=== PATIENT | female | born 1965 | race Hispanic/Latino ===

== ENCOUNTER 2016-11-15 19:33 | Emergency (ER) | payer SELFPAY ==
[2016-11-15 19:58] VITALS: BP 145/96
[2016-11-15 20:24] LABS: Hematocrit 43.8 % (30.3-42.9); Hemoglobin 14.9 gm/dl (10.1-14.3); Mean Corpuscular HGB Conc 34 % (30-34); Mean Corpuscular Hemoglobin 34 pg (28-32); Mean Corpuscular Volume 100 fl (79-97); Red Blood Count 4.39 M/mm3 (3.65-5.03); Red Cell Distribution Width 15.8 % (13.2-15.2); White Blood Count 4.9 K/mm3 (4.5-11.0)
[2016-11-15 20:37] LABS: Anion Gap 20 mmol/L; Blood Urea Nitrogen 10 mg/dL (7-17); Calcium 9.1 mg/dL (8.4-10.2); Carbon Dioxide 20 mmol/L (22-30); Chloride 101.5 mmol/L (98-107); Glucose 90 mg/dL (65-100); Potassium 3.4 mmol/L (3.6-5.0); Sodium 138 mmol/L (137-145)
[2016-11-15 20:45] LABS: Urine Drugs of Abuse Note Disclamer
[2016-11-15 21:02] LABS: Bacteria,Urine 4+ /HPF (Negative); Bilirubin,Urine NEG (Negative); Blood,Urine LG (Negative); Ketones,Urine TR mg/dL (Negative); Leukocyte Esterase,Urine NEG (Negative); Mucus,Urine 3+ /HPF; Nitrite,Urine NEG (Negative)
[2016-11-15 21:26] LABS: Basophils % (Manual) 0 % (0.0-1.8); Blastocytes % (Manual) 0 %; Diff Status Complete; Platelet Estimate Consistent w Auto; RBC Morphology Normal
[2016-11-15 21:52] LABS: Platelet Count 92 K/mm3 (140-440)
== END 2016-11-15 23:00 | disposition left against medical advice (07) ==
LOC: ED 19:33
DX: M25.511 Pain in right shoulder (principal); M25.512 Pain in left shoulder; M54.9 Dorsalgia, unspecified; Z53.21 Procedure and treatment not carried out due to patient leaving prior to being seen by health care provider
CPT/HCPCS: 36415; 80048; 80307; 81001; 81025; 85007; 85025; 93005; 93010; G0480; 80320

== ENCOUNTER 2016-11-16 07:42 | Emergency (ER) | payer SELFPAY ==
[2016-11-16 07:57] VITALS: BP 153/95
[2016-11-16 08:28] LABS: Hematocrit 45.3 % (30.3-42.9); Hemoglobin 15.2 gm/dl (10.1-14.3); Mean Corpuscular HGB Conc 34 % (30-34); Mean Corpuscular Hemoglobin 34 pg (28-32); Mean Corpuscular Volume 100 fl (79-97); Red Blood Count 4.52 M/mm3 (3.65-5.03); White Blood Count 5.8 K/mm3 (4.5-11.0)
[2016-11-16 08:35] LABS: Anion Gap 21 mmol/L; Blood Urea Nitrogen 15 mg/dL (7-17); Calcium 9.3 mg/dL (8.4-10.2); Carbon Dioxide 23 mmol/L (22-30); Chloride 101.7 mmol/L (98-107); Glucose 106 mg/dL (65-100); Potassium 3.8 mmol/L (3.6-5.0); Sodium 142 mmol/L (137-145)
[2016-11-16 08:50] LABS: Platelet Count 91 K/mm3 (140-440)
[2016-11-16 09:35] LABS: Urine Drugs of Abuse Note Disclamer
[2016-11-16 09:54] LABS: Bacteria,Urine 4+ /HPF (Negative); Bilirubin,Urine NEG (Negative); Blood,Urine LG (Negative); Ketones,Urine TR mg/dL (Negative); Leukocyte Esterase,Urine TR (Negative); Mucus,Urine 3+ /HPF; Nitrite,Urine NEG (Negative)
[2016-11-16 10:08] LABS: Blastocytes % (Manual) 0 %
[2016-11-16 10:09] LABS: Diff Status Complete; Large Platelets Few; Platelet Estimate Cons; RBC Morphology Normal
[2016-11-16] MEDS ORDERED: NACL 0.9% 1000 ML 1,000 ML ONE (15:20)
--- NOTE | 2016-11-19 09:31 | ED Elopement Review ---
ED Pt Elopement review - Results review Lab results: Laboratory Tests 11/16/16 11/16/16 11/16/16 08:07 08:07 08:07 WBC 5.8 RBC 4.52 Hgb 15.2 H Hct 45.3 H MCV 100 H MCH 34 H MCHC 34 RDW 16.0 H Plt Count 91 L [place] % (Auto) Investigative Analyst Add Manual Diff Complete Total Counted 100 Seg Neuts % (Manual) 73.0 H Band Neutrophils % 0 Lymphocytes % (Manual) 12.0 L Reactive Lymphs % (Man) 1.0 Monocytes % (Manual) 14.0 H Metamyelocytes % 0 Myelocytes % 0 Promyelocytes % 0 Blast Cells % 0 Nucleated RBC % Not Reportable Seg Neutrophils # Man 4.2 Band Neutrophils # 0.0 Lymphocytes # (Manual) 0.7 L Abs React Lymphs (Man) 0.1 Monocytes # (Manual) 0.8 Eosinophils # (Manual) 0.0 Basophils # (Manual) 0.0 Metamyelocytes # 0.0 Myelocytes # 0.0 Promyelocytes # 0.0 Blast Cells # 0.0 WBC Morphology Not Reportable Hypersegmented Neuts Not Reportable Hyposegmented Neuts Not Reportable Hypogranular Neuts Not Reportable Smudge Cells Not Reportable Toxic Granulation Not Reportable Toxic Vacuolation Not Reportable Dohle Bodies Not Reportable Pelger-Huet Anomaly Not Reportable Tony Rods Not Reportable Platelet Estimate Cons Clumped Platelets Not Reportable Plt Clumps, EDTA Not Reportable Large Platelets Few Giant Platelets Not Reportable Platelet Satelliting Not Reportable Plt Morphology Comment Not Reportable RBC Morphology Normal Dimorphic RBCs Not Reportable Polychromasia Not Reportable Hypochromasia Not Reportable Poikilocytosis Not Reportable Anisocytosis Not Reportable Microcytosis Not Reportable Macrocytosis Not Reportable Spherocytes Not Reportable Pappenheimer Bodies Not Reportable Sickle Cells Not Reportable Target Cells Not Reportable Tear Drop Cells Not Reportable Ovalocytes Not Reportable Helmet Cells Not Reportable [place] Bodies Not Reportable [place] Rings Not Reportable [place] Cells Not Reportable Bite Cells Not Reportable Crenated Cell Not Reportable Elliptocytes Not Reportable Acanthocytes (Spur) Not Reportable Rouleaux Not Reportable Hemoglobin C Crystals Not Reportable Schistocytes Not Reportable Malaria parasites Not Reportable Monster Bodies Not Reportable Hem Pathologist Commnt No Sodium 142 Potassium 3.8 Chloride 101.7 Carbon Dioxide 23 Anion Gap 21 BUN 15 Creatinine 0.5 L Estimated GFR > 60 BUN/Creatinine Ratio 30.00 Glucose 106 H Calcium 9.3 Urine Color Urine Turbidity Urine pH Ur Specific [place] Urine Protein Urine Glucose (UA) Urine Ketones Urine Blood Urine Nitrite Urine Bilirubin Urine Urobilinogen Ur Leukocyte Esterase Urine WBC (Auto) Urine RBC (Auto) U Epithel Cells (Auto) Urine Bacteria (Auto) Urine WBC Clumps Urine Mucus Urine Opiates Screen Urine Methadone Screen Ur Barbiturates Screen Ur Phencyclidine Scrn Ur Amphetamines Screen U Benzodiazepines Scrn Urine Cocaine Screen U Marijuana (THC) Screen Drugs of Abuse Note Plasma/Serum Alcohol < 0.01 11/16/16 11/16/16 09:30 09:30 WBC RBC Hgb Hct MCV MCH MCHC RDW Plt Count [place] % (Auto) Add Manual Diff Total Counted Seg Neuts % (Manual) Band Neutrophils % Lymphocytes % (Manual) Reactive Lymphs % (Man) Monocytes % (Manual) Metamyelocytes % Myelocytes % Promyelocytes % Blast Cells % Nucleated RBC % Seg Neutrophils # Man Band Neutrophils # Lymphocytes # (Manual) Abs React Lymphs (Man) Monocytes # (Manual) Eosinophils # (Manual) Basophils # (Manual) Metamyelocytes # Myelocytes # Promyelocytes # Blast Cells # WBC Morphology Hypersegmented Neuts Hyposegmented Neuts Hypogranular Neuts Smudge Cells Toxic Granulation Toxic Vacuolation Dohle Bodies Pelger-Huet Anomaly Tony Rods Platelet Estimate Clumped Platelets Plt Clumps, EDTA Large Platelets Giant Platelets Platelet Satelliting Plt Morphology Comment RBC Morphology Dimorphic RBCs Polychromasia Hypochromasia Poikilocytosis Anisocytosis Microcytosis Macrocytosis Spherocytes Pappenheimer Bodies Sickle Cells Target Cells Tear Drop Cells Ovalocytes Helmet Cells [place] Bodies [place] Rings Konrad Cells Bite Cells Crenated Cell Elliptocytes Acanthocytes (Spur) Rouleaux Hemoglobin C Crystals Schistocytes Malaria parasites Monster Bodies Hem Pathologist Commnt Sodium Potassium Chloride Carbon Dioxide Anion Gap BUN Creatinine Estimated GFR BUN/Creatinine Ratio Glucose Calcium Urine Color Maritza Urine Turbidity Cloudy Urine pH 5.0 Ur Specific [place] 1.028 Urine Protein 100 mg/dl Urine Glucose (UA) Neg Urine Ketones Tr Urine Blood Lg Urine Nitrite Neg Urine Bilirubin Neg Urine Urobilinogen 4.0 Ur Leukocyte Esterase Tr Urine WBC (Auto) 24.0 H Urine RBC (Auto) 8.0 U Epithel Cells (Auto) 4.0 Urine Bacteria (Auto) 4+ Urine WBC Clumps 1+ Urine Mucus 3+ Urine Opiates Screen Presumptive negative Urine Methadone Screen Presumptive negative Ur Barbiturates Screen Presumptive positive Ur Phencyclidine Scrn Presumptive negative Ur Amphetamines Screen Presumptive positive U Benzodiazepines Scrn Presumptive positive Urine Cocaine Screen Presumptive negative U Marijuana (THC) Screen Presumptive negative Drugs of Abuse Note Disclamer Plasma/Serum Alcohol - Call Back decision Pt Call Back Decision: Call pt to return to ED [facility] (ams AND liver dz needs ammonia and w/u uti?)
== END 2016-11-16 17:20 | disposition left against medical advice (07) ==
LOC: ED 07:42
DX: R44.0 Auditory hallucinations (principal); K76.89 Other specified diseases of liver; Z53.21 Procedure and treatment not carried out due to patient leaving prior to being seen by health care provider
CPT/HCPCS: 36415; 80048; 80307; 81001; 85007; 85025; G0480; J7030; 80320

== ENCOUNTER 2017-07-24 11:48 | Emergency (ER) | payer OTHER ==
--- NOTE | 2017-07-24 13:08 | XRay Report ---
ABDOMEN RADIOGRAPHS INDICATION: Abdominal pain. COMPARISON: None similar. FINDINGS: Frontal abdominal radiographs demonstrate mild air-filled stomach. Nonobstructive remainder bowel gas pattern. Mild colonic stool throughout. Numerous pelvic phleboliths. Prior bladder tacking surgery. No pneumatosis or pneumoperitoneum. Top normal heart size with clear visualized lung bases. Demineralized bones with few lower lumbar degenerative changes. CONCLUSION: No acute abdominal radiographic abnormality, as described. Thank you for the opportunity to participate in this patient's care.
[2017-07-24 13:10] LABS: Bacteria,Urine 1+ /HPF (Negative); Bilirubin,Urine SM (Negative); Blood,Urine SM (Negative); Ketones,Urine NEG (Negative); Leukocyte Esterase,Urine MOD (Negative); Mucus,Urine 3+ /HPF; Nitrite,Urine POS (Negative)
[2017-07-24] MEDS ORDERED: ROCEPHIN/NS 1 GM/50 ML 1 GM/50 ML BAG IV ONE (13:14)
[2017-07-24] MEDS ORDERED: cefTRIAXone 1 GM in NACL 0.9% 20 ML IV ONE (13:30)
[2017-07-24 13:44] LABS: Basophils % (Auto) 1.1 % (0.0-1.8); Eosinophils % (Auto) 1.4 % (0.0-4.3); Hematocrit 39.2 % (30.3-42.9); Mean Corpuscular HGB Conc 33 % (30-34); Mean Corpuscular Hemoglobin 33 pg (28-32); Mean Corpuscular Volume 100 fl (79-97); Red Blood Count 3.92 M/mm3 (3.65-5.03); Red Cell Distribution Width 17.2 % (13.2-15.2); White Blood Count 2.8 K/mm3 (4.5-11.0)
[2017-07-24 13:47] LABS: Platelet Count 75 K/mm3 (140-440)
[2017-07-24 13:57] LABS: Alanine Aminotransferase 44 units/L (7-56); Albumin 2.8 g/dL (3.9-5); Albumin/Globulin Ratio 0.7 %; Alkaline Phosphatase 137 units/L (35-129); Anion Gap 18 mmol/L; BUN/Creatinine Ratio 23; Blood Urea Nitrogen 9 mg/dL (7-17); Calcium 8.5 mg/dL (8.4-10.2); Carbon Dioxide 19 mmol/L (22-30); Chloride 106.3 mmol/L (98-107); Glucose 120 mg/dL (65-100); Potassium 4.2 mmol/L (3.6-5.0); Sodium 139 mmol/L (137-145); Total Protein 6.8 g/dL (6.3-8.2)
[2017-07-24 13:58] LABS: INR 1.7 (0.87-1.13)
[2017-07-24 13:59] LABS: Partial Thromboplastin Time 46.3 Sec. (24.2-36.6)
[2017-07-24] MEDS ORDERED: LASIX IV ONE (14:05)
--- NOTE | 2017-07-24 14:05 | Emergency Department Report ---
HPI - General Chief Complaint: Extremity Injury, Lower Time Seen by Provider: 07/24/17 12:18 - HPI HPI: This is a 52-year-old female presents to the emergency department via EMS from home with complaint of bilateral lower extremity swelling, dysuria, constipation and some swelling underneath the right eye. The lower extremity swelling has been going on for the past 3 weeks. The constipation really is more of the patient having hard stools and she said that she had a bowel movement 2 days ago. Patient says that it is difficult for her to urinate and she feels like maybe she is producing less urine. She denies any vaginal bleeding or discharge. She denies any fever, chest pain, shortness of breath, nausea, vomiting. The patient noticed the swelling under the right eye starting this morning. She denies any eye pain or discharge or decreased vision. She has not taken anything for her symptoms prior to Presentation. The patient has a history of cirrhosis secondary to alcohol abuse but the patient has not been drinking since October. No recent travel or sick contacts at home. ED Past Medical Hx - Past Medical History Previous Medical History?: Yes Hx Hypertension: Yes (PT DENIES) Hx Congestive Heart Failure: No Hx Diabetes: No Hx Psychiatric Treatment: Yes (DEPRESSION) Hx Asthma: No Hx COPD: No Additional medical history: GI bleeding, cirrosis, ulcer - Surgical History Past Surgical History?: Yes Additional Surgical History: Bladder tacted - Social History Smoking Status: Never Smoker Substance Use Type: None - Medications Home Medications: Home Medications Medication Instructions Recorded Confirmed Last Taken Type Doxycycline [Vibramycin CAP] 100 mg PO Q12HR #20 capsule 04/25/16 Unknown Rx Docusate Sodium [Colace] 100 mg PO BID PRN #20 capsule 07/24/17 Unknown Rx Furosemide [Lasix] 20 mg PO QDAY #5 tablet 07/24/17 Unknown Rx HYDROcodone/APAP 5-325 [[place] 1 each PO Q6HR PRN #12 tablet 07/24/17 Unknown Rx 5-325 mg TAB] Nitrofurantoin [place]/M-Cryst 100 mg PO Q12HR #14 capsule 07/24/17 Unknown Rx [Macrobid CAP] ED Review of Systems ROS: Stated complaint: LEG/FEET SWELLING, DIFFICULTY URINE Other details as noted in HPI Comment: All other systems reviewed and negative Constitutional: denies: chills, fever Eyes: denies: eye pain, eye discharge, vision change ENT: denies: ear pain, throat pain Respiratory: denies: cough, shortness of breath, wheezing Cardiovascular: edema. denies: chest pain, palpitations Gastrointestinal: constipation. denies: vomiting Genitourinary: dysuria. denies: discharge Musculoskeletal: denies: back pain, joint swelling, arthralgia Skin: denies: rash, lesions Neurological: denies: headache, weakness, paresthesias Physical Exam - Physical Exam Vital Signs: Vital Signs 07/24/17 12:21 Temperature 98.4 F Pulse Rate 87 Respiratory 16 Rate Blood Pressure 125/77 O2 Sat by Pulse 100 Oximetry Physical Exam: GENERAL: The patient is well-developed well-nourished. HENT: Normocephalic. Atraumatic. Patient has moist mucous membranes. EYES: Extraocular motions are intact. Pupils equal reactive to light bilaterally. NECK: Supple. Trachea is midline. CHEST/LUNGS: Clear to auscultation. There is no respiratory distress noted. HEART/CARDIOVASCULAR: Regular. There is no tachycardia. There is no murmur. ABDOMEN: Abdomen is soft, nontender. Patient has normal bowel sounds. There is no abdominal distention. SKIN: Skin is warm and dry. There is nonpitting swelling of the bilateral lower extremities but no skin color change, warmth, fluctuance. NEURO: The patient is awake, alert, and oriented. The patient is cooperative. The patient has no focal neurologic deficits. The patient has normal speech. MUSCULOSKELETAL: There is some mild tenderness along the bilateral lower extremities but no obvious deformity. There is no limitation range of motion. There is no evidence of acute injury. ED Course Vital Signs 07/24/17 12:21 Temperature 98.4 F Pulse Rate 87 Respiratory 16 Rate Blood Pressure 125/77 O2 Sat by Pulse 100 Oximetry ED Medical Decision Making - Lab Data Result diagrams: 07/24/17 13:17 07/24/17 13:22 - Radiology Data Radiology results: report reviewed, image reviewed interpreted by me: Abdominal x-ray shows nonspecific nonobstructive bowel gas. ULTRASOUND ABDOMEN INDICATION: Abdominal pain, ascites. History of cirrhosis. COMPARISON: May 2014. FINDINGS: Abdominal sonography technically limited due to patient's body habitus and bowel gas, though suggests diffuse hepatic echogenic coarsening. Hepatic surface nodularity may be hinted on some images. No definite biliary dilatation, to the extent assessed. Mild gallbladder sludge and/or few small gallstones may be present near its neck. No pericholecystic fluid or positive sonographic Clark's sign, though patient appeared sedated. Gallbladder wall thickness is 2 mm. Common bile duct is 3.7 mm. Homogenous spleen, 12.3 cm in length. No significant ascites. Pancreas not well-visualized. Unremarkable IVC. Nonaneurysmal abdominal aorta. No hydronephrosis with a 3.8 x 3.1 cm right upper renal cortical cyst again noted. Right kidney is 14.1 x 6.2 x 6.7 cm with cortical thickness of 2 cm. Left kidney measures 11.5 x 5.8 x 5.8 cm with cortical thickness of 1.6 cm. CONCLUSION: No definite acute abdominal sonographic abnormality in this patient with cirrhosis, mild gallbladder sludge/cholelithiasis and a right renal cyst, as described. Thank you for the opportunity to participate in this patient's care. Transcribed By: RS Dictated By: CARIDAD VICTOR MD Electronically Authenticated By: CARIDAD VICTOR MD Signed Date/Time: 07/24/17 0008 Bilateral lower extremity venous Doppler is negative for DVT. - Medical Decision Making The patient presents with bilateral lower extremity swelling going on for about 3 weeks. She also complains of some dysuria and some recent constipation. She has a urinary tract infection and was given a dose of Rocephin here. Abdominal x-ray does not show any signs of obstruction or significant stool volume. Due to her cirrhosis and the swelling, an ultrasound was done of the abdomen that did not show any ascites or any other acute process but does show her cirrhosis as well as some gallbladder sludge and/or cholelithiasis without cholecystitis. The patient says that this is chronic as well. Her labs show elevated total bilirubin but once again there is no signs of cholecystitis and the patient does not have any jaundice and she is not really complaining of any abdominal discomfort. There is no leukocytosis. No significant electrolyte abnormalities or glucose abnormalities. BNP is about 100 and low suspicion for CHF. The patient will have bilateral lower extremity venous Doppler to rule out DVT as the cause of her lower stomach swelling but it is low suspicion at this point. She will be set up for discharge home with Macrobid for UTI, a few days of Lasix for diuresis, pain medication for her legs and some Colace to help with her hard stool. She will return to ER with any worsening of her symptoms or any acute distress. The lower external Dopplers were negative for DVT and the patient was sent home with the plan stated above. - Differential Diagnosis CHF, ascites, DVT, venous stasis Critical Care Time: No Critical care attestation.: If time is entered above; I have spent that time in minutes in the direct care of this critically ill patient, excluding procedure time. ED Disposition Clinical Impression: Lower extremity edema UTI (urinary tract infection) Qualifiers: Urinary tract infection type: acute cystitis Hematuria presence: without hematuria Qualified Code(s): N30.00 - Acute cystitis without hematuria Cirrhosis Qualifiers: Hepatic cirrhosis type: alcoholic cirrhosis Ascites presence: without ascites Qualified Code(s): K70.30 - Alcoholic cirrhosis of liver without ascites Cholelithiasis Qualifiers: Cholelithiasis location: gallbladder Cholecystitis presence: without cholecystitis Biliary obstruction: without biliary obstruction Qualified Code(s) : K80.20 - Calculus of gallbladder without cholecystitis without obstruction Disposition: DC- TO HOME OR SELFCARE Is pt being admited?: No Condition: Stable Instructions: Cirrhosis (ED), Urinary Tract Infection in Women (ED), Leg Edema (ED) Additional Instructions: Please follow up with a primary care physician as soon as possible. Return to the emergency Department with any worsening of your symptoms or any acute distress. You have been prescribed a medication that is sedating and therefore should not be taken prior to driving, working, and responsible for children and in no way should be mixed with alcohol of any quantity. Prescriptions: Docusate Sodium [Colace] 100 mg PO BID PRN #20 capsule PRN Reason: Constipation Furosemide [Lasix] 20 mg PO QDAY #5 tablet HYDROcodone/APAP 5-325 [[place] 5-325 mg TAB] 1 each PO Q6HR PRN #12 tablet PRN Reason: Pain Nitrofurantoin [place]/M-Cryst [Macrobid CAP] 100 mg PO Q12HR #14 capsule Referrals: [facility] [Outside] - 3-5 Days [facility] [Outside] - 3-5 Days [facility] [Outside] - 3-5 Days [facility] [Outside] - 3-5 Days [facility] [Outside] - 3-5 Days
[2017-07-24] MEDS ORDERED: MORPHINE IV ONE (15:04)
--- NOTE | 2017-07-24 15:20 | Ultrasound Report ---
ULTRASOUND ABDOMEN INDICATION: Abdominal pain, ascites. History of cirrhosis. COMPARISON: May 2014. FINDINGS: Abdominal sonography technically limited due to patient's body habitus and bowel gas, though suggests diffuse hepatic echogenic coarsening. Hepatic surface nodularity may be hinted on some images. No definite biliary dilatation, to the extent assessed. Mild gallbladder sludge and/or few small gallstones may be present near its neck. No pericholecystic fluid or positive sonographic Clark's sign, though patient appeared sedated. Gallbladder wall thickness is 2 mm. Common bile duct is 3.7 mm. Homogenous spleen, 12.3 cm in length. No significant ascites. Pancreas not well-visualized. Unremarkable IVC. Nonaneurysmal abdominal aorta. No hydronephrosis with a 3.8 x 3.1 cm right upper renal cortical cyst again noted. Right kidney is 14.1 x 6.2 x 6.7 cm with cortical thickness of 2 cm. Left kidney measures 11.5 x 5.8 x 5.8 cm with cortical thickness of 1.6 cm. CONCLUSION: No definite acute abdominal sonographic abnormality in this patient with cirrhosis, mild gallbladder sludge/cholelithiasis and a right renal cyst, as described. Thank you for the opportunity to participate in this patient's care.
[2017-07-24 17:05] VITALS: BP 124/59
== END 2017-07-24 17:15 | disposition home or self-care (01) ==
LOC: ED 11:48
DX: N30.00 Acute cystitis without hematuria (principal); K70.30 Alcoholic cirrhosis of liver without ascites; K80.20 Calculus of gallbladder without cholecystitis without obstruction; I10 Essential (primary) hypertension; F32.9 Major depressive disorder, single episode, unspecified; K74.60 Unspecified cirrhosis of liver
CPT/HCPCS: 36415; 74020; 76700; 80053; 81001; 83880; 85025; 85610; 85730; 87086; 93970; 96374; 96375; 99285; J0696; J1940; J2270; 87076; 87186

== ENCOUNTER 2017-09-17 12:01 | Emergency (ER) | payer OTHER ==
[2017-09-17] MEDS ORDERED: LASIX IV ONE (12:58)
--- NOTE | 2017-09-17 13:02 | Emergency Department Report ---
ED General Adult HPI - General Chief complaint: Dyspnea/Respdistress Stated complaint: SWELLING ALL OVER Time Seen by Provider: 09/17/17 12:50 Source: EMS Mode of arrival: Stretcher Limitations: Physical Limitation - History of Present Illness Initial comments: Patient is 52 years old female history of alcoholic liver cirrhosis, presented to the ER was generalized swelling mainly lower extremities abdomen and periorbital area for the last 2 weeks. Patient stated that she is having trouble seeing because of the swelling in her eyes. She denied shortness of breath. Patient had history of paracentesis for ascites before. She denied any fever, confusion, nausea or vomiting. No chest pain. - Related Data Previous Rx's Medication Instructions Recorded Last Taken Type Doxycycline [Vibramycin CAP] 100 mg PO Q12HR #20 capsule 04/25/16 Unknown Rx Docusate Sodium [Colace] 100 mg PO BID PRN #20 capsule 07/24/17 Unknown Rx Furosemide [Lasix] 20 mg PO QDAY #5 tablet 07/24/17 Unknown Rx HYDROcodone/APAP 5-325 [[place] 1 each PO Q6HR PRN #12 tablet 07/24/17 Unknown Rx 5-325 mg TAB] Nitrofurantoin [place]/M-Cryst 100 mg PO Q12HR #14 capsule 07/24/17 Unknown Rx [Macrobid CAP] Allergies Allergy/AdvReac Type Severity Reaction Status Date / Time Sulfa (Sulfonamide AdvReac Rash Verified 05/20/14 14:37 Antibiotics) ED Review of Systems ROS: Stated complaint: SWELLING ALL OVER Other details as noted in HPI Comment: All other systems reviewed and negative Constitutional: denies: chills, fever Respiratory: shortness of breath. denies: cough, orthopnea, SOB with exertion, wheezing Cardiovascular: denies: chest pain, palpitations, dyspnea on exertion Gastrointestinal: abdominal pain. denies: nausea, vomiting, diarrhea, constipation, hematemesis, melena, hematochezia Genitourinary: denies: urgency, dysuria, frequency, hematuria Musculoskeletal: denies: back pain, joint swelling Neurological: denies: headache, weakness, numbness, paresthesias, confusion, abnormal gait, vertigo ED Past Medical Hx - Past Medical History Hx Hypertension: Yes (PT DENIES) Hx Congestive Heart Failure: No Hx Diabetes: No Hx Psychiatric Treatment: Yes (DEPRESSION) Hx Asthma: No Hx COPD: No Additional medical history: GI bleeding, cirrosis, ulcer - Surgical History Additional Surgical History: Bladder tacted - Social History Smoking Status: Never Smoker Substance Use Type: Alcohol - Medications Home Medications: Home Medications Medication Instructions Recorded Confirmed Last Taken Type Doxycycline [Vibramycin CAP] 100 mg PO Q12HR #20 capsule 04/25/16 Unknown Rx Docusate Sodium [Colace] 100 mg PO BID PRN #20 capsule 07/24/17 Unknown Rx Furosemide [Lasix] 20 mg PO QDAY #5 tablet 07/24/17 Unknown Rx HYDROcodone/APAP 5-325 [[place] 1 each PO Q6HR PRN #12 tablet 07/24/17 Unknown Rx 5-325 mg TAB] Nitrofurantoin [place]/M-Cryst 100 mg PO Q12HR #14 capsule 07/24/17 Unknown Rx [Macrobid CAP] ED Physical Exam - General Limitations: Physical Limitation General appearance: alert, in no apparent distress - Head Head exam: Present: atraumatic, normocephalic, normal inspection - Eye Eye exam: Present: PERRL, periorbital swelling. Absent: scleral icterus, conjunctival injection, nystagmus, periorbital tenderness - ENT ENT exam: Present: normal exam, normal orophraynx, mucous membranes moist - Neck Neck exam: Present: normal inspection, full ROM. Absent: tenderness, meningismus, lymphadenopathy, thyromegaly - Respiratory Respiratory exam: Present: decreased breath sounds. Absent: respiratory distress, wheezes, rales, rhonchi, stridor, accessory muscle use, prolonged expiratory - Cardiovascular Cardiovascular Exam: Present: regular rate, normal rhythm, normal heart sounds - GI/Abdominal GI/Abdominal exam: Present: soft, distended, normal bowel sounds. Absent: tenderness, guarding, rebound, rigid, organomegaly, mass, bruit, pulsatile mass , hernia - Extremities Exam Extremities exam: Present: normal inspection, full ROM, normal capillary refill - Back Exam Back exam: Present: normal inspection, full ROM. Absent: tenderness, CVA tenderness (R), CVA tenderness (L) - Neurological Exam Neurological exam: Present: alert, oriented X3, CN II-XII intact, normal gait - Skin Skin exam: Present: warm, intact, normal color. Absent: cyanosis, diaphoretic, erythema ED Course Vital Signs 09/17/17 09/17/17 09/17/17 12:17 12:26 12:30 Temperature 98.4 F Pulse Rate 78 75 77 Respiratory 14 11 L 14 Rate Blood Pressure 129/61 135/76 O2 Sat by Pulse 97 97 96 Oximetry 09/17/17 09/17/17 09/17/17 12:45 13:00 14:17 Temperature Pulse Rate 76 81 Respiratory 15 16 14 Rate Blood Pressure 130/69 126/73 O2 Sat by Pulse 98 100 100 Oximetry - Reevaluation(s) Reevaluation #1: 09/17/17 15:52 Patient stated that she is feeling better. I will start patient on spironolactone and I strongly advised the patient to follow up with her GI doctor in the next 2-3 days. ED Medical Decision Making - Lab Data Result diagrams: 09/17/17 14:50 09/17/17 14:06 - EKG Data -: EKG Interpreted by Me EKG shows normal: sinus rhythm Rate: normal - EKG Data Interpretation: no acute changes - Radiology Data Radiology results: report reviewed Referring Physician: CRISTINA CAMARGO Patient Name: KYREE SILVA Date of : 1965 Sex: Female Report Date: 2017-09-17 Report Status: [place] [address] Ultrasound Report Signed Patient: KYREE SILVA MR#: [id number] : 1965 Acct:[id number] Age/Sex: 52 / F ADM Date: 09/17/17 Loc: ED Attending Dr: Ordering Physician: CRISTINA CAMARGO Date of Service: 09/17/17 Procedure(s): US abdomen limited Accession Number(s): [id number] cc: CRISTINA CAMARGO ULTRASOUND ABDOMEN LIMITED History: Ascites, cirrhosis. Findings: Transabdominal grayscale ultrasound was performed in all 4 quadrants. Small ascites is identified which is most pronounced in the right abdomen. No obvious internal septation or debris. Impression: Small ascites. Transcribed By: TTR Dictated By: KATALINA ANDERSON JR, MD Electronically Authenticated By: KATALINA ANDERSON JR, MD Signed Date/Time: 09/17/17 1328 DD/ 1327 TD/TT: 09/17/178 Referring Physician: CRISTINA CAMARGO Patient Name: KYREE SILVA Date of : 1965 Sex: Female Report Date: 2017-09-17 Report Status: Finalized Findings [facility] [address] [place] [address] XRay Report Signed Patient: KYREE SILVA MR#: [id number] : 1965 Acct:[id number] Age/Sex: 52 / F ADM Date: 09/17/17 Loc: ED Attending Dr: Ordering Physician: CRISTINA CAMARGO Date of Service: 09/17/17 Procedure(s): XR chest routine 2V Accession Number(s): [id number] cc: CRISTINA CAMARGO Fluoro Time In Minutes: ROUTINE CHEST, TWO VIEWS: HISTORY: Shortness of breath. The trachea, heart, mediastinal contour, lung mullen and bony thorax are unremarkable. IMPRESSION: No acute cardiopulmonary process. Transcribed By: TTR Dictated By: KATALINA ANDERSON JR, MD Electronically Authenticated By: KATALINA ANDERSON JR, MD Signed Date/Time: 09/17/171338 DD/ 133 TD/TT: 09/17/171338 Critical care attestation.: If time is entered above; I have spent that time in minutes in the direct care of this critically ill patient, excluding procedure time. ED Disposition Clinical Impression: Generalized abdominal swelling, Chronic liver disease and cirrhosis, Ascites Disposition: DC-01 TO HOME OR SELFCARE Is pt being admited?: No Condition: Stable Instructions: Cirrhosis (ED), Ascites (ED)
--- NOTE | 2017-09-17 13:35 | Ultrasound Report ---
ULTRASOUND ABDOMEN LIMITED History: Ascites, cirrhosis. Findings: Transabdominal grayscale ultrasound was performed in all 4 quadrants. Small ascites is identified which is most pronounced in the right abdomen. No obvious internal septation or debris. Impression: Small ascites.
--- NOTE | 2017-09-17 13:46 | XRay Report ---
ROUTINE CHEST, TWO VIEWS: HISTORY: Shortness of breath. The trachea, heart, mediastinal contour, lung mullen and bony thorax are unremarkable. IMPRESSION: No acute cardiopulmonary process.
[2017-09-17 14:29] LABS: Bacteria,Urine 1+ /HPF (Negative); Mucus,Urine FEW /HPF
[2017-09-17 14:36] LABS: Bilirubin,Urine NEG (Negative); Blood,Urine SM (Negative); Color,Urine Yellow (Yellow); Nitrite,Urine POS (Negative); Protein,Urine <15 mg/dL mg/dL (Negative)
[2017-09-17 14:43] LABS: Alanine Aminotransferase 45 units/L (7-56); Albumin 2.9 g/dL (3.9-5); BUN/Creatinine Ratio 20; Blood Urea Nitrogen 10 mg/dL (7-17); Calcium 8.5 mg/dL (8.4-10.2); Hemolysis Index 23
[2017-09-17 15:19] LABS: Basophils % (Auto) 1.1 % (0.0-1.8); Eosinophils % (Auto) 0.9 % (0.0-4.3); Hematocrit 42.1 % (30.3-42.9); Hemoglobin 14.1 gm/dl (10.1-14.3); Lymphocytes # (Auto) 1.2 K/mm3 (1.2-5.4); Lymphocytes % (Auto) 31.8 % (13.4-35.0); Mean Corpuscular HGB Conc 34 % (30-34); Mean Corpuscular Hemoglobin 33 pg (28-32); Mean Corpuscular Volume 97 fl (79-97); Monocytes # (Auto) 0.3 K/mm3 (0.0-0.8); Monocytes % (Auto) 8.7 % (0.0-7.3); Platelet Count 79 K/mm3 (140-440); Red Blood Count 4.32 M/mm3 (3.65-5.03); Red Cell Distribution Width 17.1 % (13.2-15.2)
[2017-09-17 15:35] LABS: INR 1.61 (0.87-1.13)
[2017-09-17 15:36] LABS: Partial Thromboplastin Time 43.9 Sec. (24.2-36.6)
[2017-09-17] MEDS ORDERED: MORPHINE ONE (15:40)
[2017-09-17] MEDS ORDERED: MORPHINE IV ONE (15:43)
[2017-09-17 16:04] VITALS: BP 122/61
== END 2017-09-17 16:29 | disposition home or self-care (01) ==
LOC: ED 12:01
DX: K74.60 Unspecified cirrhosis of liver (principal); R18.8 Other ascites; I10 Essential (primary) hypertension; Z88.2 Allergy status to sulfonamides
CPT/HCPCS: 36415; 71046; 76705; 80053; 81001; 82140; 85025; 85610; 85730; 93005; 93010; 96374; 96375; 99285; J1940; J2270

== ENCOUNTER 2017-12-17 10:32 | Emergency (ER) | payer MEDICAID ==
[2017-12-17 11:20] VITALS: BP 169/90
[2017-12-17 12:08] LABS: Bacteria,Urine 2+ /HPF (Negative); Bilirubin,Urine SM (Negative); Blood,Urine SM (Negative); Color,Urine Amber (Yellow); Mucus,Urine 3+ /HPF
[2017-12-17 12:09] LABS: Ictotest,Urine Negative (Negative)
[2017-12-17 12:53] LABS: Hemoglobin 14.1 gm/dl (10.1-14.3); Mean Corpuscular HGB Conc 33 % (30-34); Mean Corpuscular Hemoglobin 32 pg (28-32); Mean Corpuscular Volume 97 fl (79-97); Red Blood Count 4.42 M/mm3 (3.65-5.03); Red Cell Distribution Width 17.9 % (13.2-15.2)
[2017-12-17 12:54] LABS: Platelet Count 75 K/mm3 (140-440)
[2017-12-17 13:08] LABS: Alanine Aminotransferase 48 units/L (7-56); Albumin 3.1 g/dL (3.9-5); BUN/Creatinine Ratio 28; Blood Urea Nitrogen 11 mg/dL (7-17); Calcium 8.6 mg/dL (8.4-10.2); Hemolysis Index 25
[2017-12-17 13:40] LABS: Total Cells Counted 100
[2017-12-17 13:41] LABS: Platelet Estimate Consistent w Auto; RBC Morphology Normal
== END 2017-12-17 20:25 | disposition left against medical advice (07) ==
LOC: ED 10:32
DX: R41.0 Disorientation, unspecified (principal); Z53.21 Procedure and treatment not carried out due to patient leaving prior to being seen by health care provider
CPT/HCPCS: 36415; 80053; 81001; 83690; 85007; 85025

== ENCOUNTER 2018-04-22 14:28 | Inpatient (IN) | payer MEDICAID ==
[2018-04-22] MEDS ORDERED: NACL 0.9% 1000 ML 1,000 ML IV ONE (15:11)
[2018-04-22 16:50] LABS: Hematocrit 39.8 % (30.3-42.9); Hemoglobin 13.3 gm/dl (10.1-14.3); Mean Corpuscular HGB Conc 33 % (30-34); Mean Corpuscular Hemoglobin 33 pg (28-32); Mean Corpuscular Volume 97 fl (79-97); Red Blood Count 4.09 M/mm3 (3.65-5.03); Red Cell Distribution Width 17.8 % (13.2-15.2)
[2018-04-22 16:53] LABS: Platelet Count 75 K/mm3 (140-440)
[2018-04-22 17:15] LABS: Alanine Aminotransferase 35 units/L (7-56); Albumin 2.8 g/dL (3.9-5); BUN/Creatinine Ratio 20; Blood Urea Nitrogen 8 mg/dL (7-17); Calcium 8.5 mg/dL (8.4-10.2); Hemolysis Index 10; Lipase 40 units/L (13-60)
--- NOTE | 2018-04-22 17:34 | Emergency Department Report ---
HPI - General Chief Complaint: Weakness Time Seen by Provider: 04/22/18 17:17 - HPI HPI: 53-year-old female presents to the emergency department via EMS from home with what appears to be some generalized weakness, confusion and some forgetfulness for the past few days. The patient herself is awake and says that she is here for "encephalopathy." The patient has a history of previous alcohol abuse and subsequent cirrhosis and liver failure and does have a previous history of elevated ammonia levels. She takes lactulose 30 g twice daily and says that she has been compliant. She says that she has not been drinking any alcohol recently and denies any illicit drug use. ED Past Medical Hx - Past Medical History Hx Hypertension: Yes (PT DENIES) Hx Heart Attack/AMI: No Hx Congestive Heart Failure: No Hx Diabetes: No Hx Liver Disease: Yes Hx Psychiatric Treatment: Yes (DEPRESSION, ETOH abuse) Hx Asthma: No Hx COPD: No Additional medical history: GI bleeding, cirrosis, ulcer - Surgical History Additional Surgical History: Bladder tacted - Social History Smoking Status: Former Smoker - Medications Home Medications: Home Medications Medication Instructions Recorded Confirmed Last Taken Type FLUoxetine [PROzac] 20 mg PO BID 02/19/18 02/19/18 Unknown History Omeprazole 20 mg PO QDAY 02/19/18 02/19/18 Unknown History Ondansetron [Zofran Odt] 4 mg PO Q4H PRN 02/19/18 02/19/18 Unknown History Furosemide [Lasix TAB] 40 mg PO QDAY #30 tablet 02/21/18 Unknown Rx Lactulose [Cephulac] 30 gm PO BID 30 Days oral.liqd 02/21/18 Unknown Rx Nadolol [Corgard] 10 mg PO QDAY #30 tablet 02/21/18 Unknown Rx Potassium Chloride [K-Dur] 10 meq PO QDAY #14 tablet 02/21/18 Unknown Rx Rifaximin [Xifaxan] 550 mg PO BID #60 tablet 02/21/18 Unknown Rx ED Review of Systems ROS: Stated complaint: CONFUSION Other details as noted in HPI Comment: All other systems reviewed and negative Constitutional: weakness. denies: fever Eyes: denies: eye pain, eye discharge, vision change ENT: denies: ear pain, throat pain Respiratory: denies: cough, shortness of breath, wheezing Cardiovascular: denies: chest pain, palpitations Gastrointestinal: denies: abdominal pain, nausea, diarrhea Genitourinary: denies: urgency, dysuria, discharge Musculoskeletal: denies: back pain, joint swelling, arthralgia Skin: denies: rash, lesions Neurological: confusion. denies: headache Physical Exam - Physical Exam Vital Signs: Vital Signs 04/22/18 14:43 Pulse Rate 112 H Respiratory 18 Rate Blood Pressure 164/96 O2 Sat by Pulse 97 Oximetry Physical Exam: GENERAL: The patient is well-developed well-nourished. HENT: Normocephalic. Atraumatic. Patient has moist mucous membranes. EYES: Extraocular motions are intact. Pupils equal reactive to light bilaterally. NECK: Supple. Trachea is midline. CHEST/LUNGS: Clear to auscultation. There is no respiratory distress noted. HEART/CARDIOVASCULAR: Regular. There is no tachycardia. There is no murmur. ABDOMEN: Abdomen is soft, nontender. Patient has normal bowel sounds. There is no abdominal distention. SKIN: Skin is warm and dry. NEURO: The patient is very sleepy but is arousable. She is oriented to person, place and time but does display some confusion about other details regarding her physicians, her medications and some recent events. The patient has no motor deficits. The patient has normal speech. Cranial nerves II through XII grossly intact. MUSCULOSKELETAL: There is no tenderness or deformity. There is no evidence of acute injury. ED Course Vital Signs 04/22/18 14:43 Pulse Rate 112 H Respiratory 18 Rate Blood Pressure 164/96 O2 Sat by Pulse 97 Oximetry ED Medical Decision Making - Lab Data Result diagrams: 04/22/18 16:20 04/22/18 16:20 - EKG Data -: EKG Interpreted by Ks EKG shows normal: sinus rhythm, axis, intervals, QRS complexes, ST-T waves Rate: normal - EKG Data When compared to previous EKG there are: previous EKG unavailable Interpretation: normal EKG - Radiology Data Radiology results: report reviewed PROCEDURE: CT HEAD/BRAIN WO CON TECHNIQUE: Computerized tomography of the head was performed without contrast material. HISTORY: AMS COMPARISON: No prior studies are available for comparison. FINDINGS: There is no CT evidence of intracranial mass, hemorrhage, acute territorial infarction, or hydrocephalus. The intracranial arteries are symmetric in density. Lacrimal glands are prominent bilaterally. Calvarium is intact. Visualized paranasal sinuses and mastoids are aerated. IMPRESSION: No CT evidence of acute intracranial abnormality. Lacrimal glands incidentally appear prominent bilaterally Transcribed By: [facility] Dictated By: NEDRA HOBSON M.D. Electronically Authenticated By: NEDRA HOBSON M.D. Signed Date/Time: 04/22/181913 - Medical Decision Making This patient has a history of liver cirrhosis and liver failure with a history of elevated ammonia for which she takes lactulose and allegedly has been taking it compliantly. She has been having some sleepiness and some confusion over the past few days, witnessed by family. On examination, the patient is sleepy but is easily arousable. She is able to display orientation to person, place and time but does have some confusion in trying to remember her medications, her physician's names and some other details. There are no focal deficits seen. A CT scan of the head was done that did not show any bleed, shift, mass, ischemia or any other acute process. Her ammonia level was about 140. I gave her an extra dose of lactulose to start but she will need admission for further evaluation and treatment. She has been accepted for admission by the hospitalist, Dr. Bell. - Differential Diagnosis CVA, TIA, Hyperammonemia, Dysrythmia, Hypoglycemia Critical Care Time: No Critical care attestation.: If time is entered above; I have spent that time in minutes in the direct care of this critically ill patient, excluding procedure time. ED Disposition Clinical Impression: Acute hepatic encephalopathy, Hyperammonemia, History of cirrhosis of liver Disposition: OP ADMIT IP TO THIS HOSP Is pt being admited?: Yes Condition: Fair Referrals: PRIMARY CARE, [Primary Care Provider] - 3-5 Days Time of Disposition: 21:35
[2018-04-22 18:03] LABS: RBC Morphology Normal; Total Cells Counted 100
[2018-04-22] MEDS ORDERED: CEPHULAC PO ONE (18:06)
[2018-04-22 18:34] LABS: Bacteria,Urine 1+ /HPF (Negative); Bilirubin,Urine NEG (Negative); Blood,Urine NEG (Negative); Color,Urine Yellow (Yellow); Mucus,Urine FEW /HPF; Protein,Urine <15 mg/dL mg/dL (Negative)
[2018-04-22 18:42] LABS: Benzodiazepines Screen,Urine PRESUMPTIVE NEGATIVE; Cannabinoid Screen,Urine PRESUMPTIVE NEGATIVE; Cocaine Screen,Urine PRESUMPTIVE NEGATIVE; Methadone Screen,Urine PRESUMPTIVE NEGATIVE; Opiate Screen,Urine PRESUMPTIVE NEGATIVE
[2018-04-22 19:12] LABS: Amphetamine Screen,Urine PRESUMPTIVE POSITIVE
--- NOTE | 2018-04-22 19:15 | Cat Scan Report ---
FINAL REPORT PROCEDURE: CT HEAD/BRAIN WO CON TECHNIQUE: Computerized tomography of the head was performed without contrast material. HISTORY: AMS COMPARISON: No prior studies are available for comparison. FINDINGS: There is no CT evidence of intracranial mass, hemorrhage, acute territorial infarction, or hydrocephalus. The intracranial arteries are symmetric in density. Lacrimal glands are prominent bilaterally. Calvarium is intact. Visualized paranasal sinuses and mastoids are aerated. IMPRESSION: No CT evidence of acute intracranial abnormality. Lacrimal glands incidentally appear prominent bilaterally
[2018-04-22] MEDS ORDERED: ZOFRAN IV PRN (22:24)
[2018-04-22] MEDS ORDERED: MORPHINE IV ONE (23:44)
[2018-04-23] MEDS: CEPHULAC PO SCH ×4 (00:26→22:49)
--- NOTE | 2018-04-23 06:36 | History and Physical Report ---
CHIEF COMPLAINT: Change in mental status. HISTORY OF PRESENTING ILLNESS: The patient is a 53-year-old female with known history of cirrhosis of the liver and the patient was having change in mental status and was observed by family members to be confused and feeling weak and saying that it hurts all over. The patient denies any history of chest pain. Denies history of fever or chills. Denied history of any nausea or vomiting and presented for evaluation. PAST MEDICAL HISTORY: Pertinent for hypertension, cirrhosis of the liver, alcohol abuse, depression, GI bleed from peptic ulcer. PAST SURGICAL HISTORY: Pertinent for bladder tack surgery. FAMILY HISTORY: Family history is noncontributory. SOCIAL HISTORY: The patient is a former cigarette smoker and used to drink alcohol a lot and uses illicit drug. MEDICATIONS: The patient is on Prozac 20 mg by mouth twice daily, omeprazole 20 mg by mouth daily, Zofran ODT 4 mg under the tongue q. 4 hour for nausea and vomiting. Also, the patient is on Lasix 40 mg by mouth daily, lactulose 30 mg by mouth twice daily, nadolol 10 mg by mouth daily, potassium chloride or K-Dur 10 mEq by mouth daily and rifaximin 550 mg by mouth twice daily. ALLERGIES: THE PATIENT IS ALLERGIC TO SULFA DRUGS. REVIEW OF SYSTEMS: CONSTITUTIONAL: There is no fever, no chills, no diaphoresis. HEENT: There is no headache or sore throat. CARDIOVASCULAR SYSTEM: There is no chest pain or orthopnea. RESPIRATORY SYSTEM: There is no shortness of breath or cough. GASTROINTESTINAL SYSTEM: There is no nausea, no vomiting, no abdominal pain, diarrhea or constipation. NEUROLOGICAL SYSTEM: Change in mental status noted, weakness noted, no dizziness. MUSCULOSKELETAL SYSTEM: There is no joint pain or swelling. DERMATOLOGICAL SYSTEM: There is no skin rash or itching. GENITOURINARY SYSTEM: There is no dysuria, hematuria or flank pain. Rest of system review is normal. PHYSICAL EXAMINATION: GENERAL: At the time of exam, the patient was found to be alert, oriented x 3, and not in acute distress. VITAL SIGNS: Show normal temperature with pulse of 112, respiration 18, blood pressure 164/96, O2 sat of 97% on room air. HEENT: Showed pupils to the equal, round, reactive to light and accommodating. Extraocular muscles are intact. NECK: Supple with no JVD or carotid bruit. CARDIOVASCULAR SYSTEM: Showed normal first and second heart sounds with no gallops or murmur. RESPIRATORY SYSTEM: Showed good air entry on both sides of the lungs with no abnormal breath sounds. GASTROINTESTINAL SYSTEM: Show abdomen to be full, soft, nontender with no organomegaly or rigidity. NEUROLOGICAL: Neuro exam shows no focal deficit. MUSCULOSKELETAL SYSTEM: Show no joint swelling or tenderness. DERMATOLOGICAL SYSTEM: Show no skin rash. GENITOURINARY SYSTEM: Showing no costovertebral angle tenderness. PERTINENT LABORATORY DATA AND IMAGING STUDIES: The patient has CT of the head without contrast done that shows no evidence of acute intracranial abnormality. There is finding of prominent lacrimal glands bilaterally. Lab results; the patient's CBC shows slightly low white count of 3.4, normal hemoglobin, normal hematocrit and low platelet count of 75 with CBC differential showing high monocyte count of 20%. The patient's chemistry show high total bilirubin of 2.6, elevated liver transaminases with AST showing value of 60 and normal ALT of 35. The patient's ammonia level is high with a value of 139 and albumin level is low with a value of 2.8. The patient's urinalysis was unremarkable and toxicology screen is positive for amphetamine use. DIAGNOSES: 1. Hepatic encephalopathy. 2. Increased ammonia level. 3. Amphetamine abuse. PLAN OF ACTION: 1. The patient will be admitted to the medical floor telemetry. 2. The patient will have Gastroenterology consult with [facility], notably Dr. Nolan Hamm, for management of hepatic encephalopathy. 3. The patient will be on hepatic diet and will be on lactulose 20 ____ by mouth 3 times daily. 4. The patient will be on IV morphine 2 mg one time and will be on her home medication as shown in the medication reconciliation section. 5. The patient will also be on Zofran 4 mg IV every 8 hours for nausea and vomiting. JOB# [id number] OCN/NTS
[2018-04-23] MEDS ORDERED: MOTRIN PO PRN (06:51)
[2018-04-23] MEDS ORDERED: DILAUDID IV PRN (08:55)
--- NOTE | 2018-04-23 12:02 | Gastroenterology Consultation ---
<MARCIE SWIFT - Last Filed: 04/23/18 12:34> History of Present Illness - Reason for Consult Consult date: 04/23/18 hepatic encephalopathy, cirrhosis Requesting physician: WALTER ABDI - History of Present Illness Patient is a 53 y/o female with PMH of alcoholic cirrhosis who presented to ED with c/o weakness, confusion, and forgetfulness. Upon admission, her ammonia level was found to be elevated and she was admitted for hepatic encephalopathy to which GI has been consulted. Patient is previously known to our service from a consult in January for similar symptoms. This morning patient was resting in bed w/o acute distress and family at bedside. Noted to be Alert and oriented x 3 but reports some continued difficulty remembering phone numbers and using the phone this am which made her upset to the point of crying due to "this happening to me". Denies fever, wt loss, CP, SOB, jaundice, abd pain, N/V, or signs of bleeding. Tolerating diet. States she has been compliant with taking lactulose at home and had a follow up clinic appt scheduled for yesterday but had to cancel due to coming to the hospital. Denies any alcohol use since last year. Drug screen positive for amephetamines which she admits to using approximately once every 6 weeks. Past History Past Medical History: hypertension, liver disease (alcoholic cirrhosis), other ( depression, GI bleeding (EGD 2013 revealed gastric erosions)) Past Surgical History: Other (bladder ) Social history: other (former smoker, hx of ETOH abuse, substance abuse ( amphetamines)) Family history: other (unknown) Medications and Allergies Allergies Allergy/AdvReac Type Severity Reaction Status Date / Time Sulfa (Sulfonamide AdvReac Rash Verified 05/20/14 14:37 Antibiotics) Home Medications Medication Instructions Recorded Confirmed Last Taken Type FLUoxetine [PROzac] 20 mg PO BID 02/19/18 04/22/18 Unknown History Omeprazole 20 mg PO QDAY 02/19/18 04/22/18 Unknown History Ondansetron [Zofran Odt] 4 mg PO Q4H PRN 02/19/18 04/22/18 Unknown History Furosemide [Lasix TAB] 40 mg PO QDAY #30 tablet 02/21/18 04/22/18 Unknown Rx Lactulose [Cephulac] 30 gm PO BID 30 Days oral.andreaqd 02/21/18 04/22/18 Unknown Rx Nadolol [Corgard] 10 mg PO QDAY #30 tablet 02/21/18 04/22/18 Unknown Rx Potassium Chloride [K-Dur] 10 meq PO QDAY #14 tablet 02/21/18 04/22/18 Unknown Rx Rifaximin [Xifaxan] 550 mg PO BID #60 tablet 02/21/18 04/22/18 Unknown Rx Active Meds: Active Medications Fluoxetine HCl (Prozac) 20 mg PO BID DONN Furosemide (Lasix) 40 mg PO QDAY [facility] Heparin Sodium (Porcine) (Heparin) 5,000 unit SUB-Q Q12HR DONN Hydromorphone HCl (Dilaudid) 0.5 mg IV Q6H PRN PRN Reason: Pain , Severe (7-10) Ibuprofen (Motrin) 600 mg PO Q6H PRN PRN Reason: Pain, Mild (1-3) Last Admin: 04/23/18 07:18 Dose: 600 mg Lactulose (Cephulac) 20 gm PO TID [facility] Last Admin: 04/23/18 00:26 Dose: 20 gm Nadolol (Corgard) 10 mg PO QDAY DONN Ondansetron HCl (Zofran) 4 mg IV Q8H PRN PRN Reason: Nausea And Vomiting Pantoprazole Sodium (Protonix) 20 mg PO QDAY DONN Potassium Chloride (K-Dur) 10 meq PO QDAY DONN Rifaximin (Xifaxan) 550 mg PO BID [facility] Review of Systems - Review of Systems All systems: negative Constitutional: other (confusion) Exam - Constitutional Vital Signs: Temp Pulse Resp BP Pulse Ox 98.4 F 74 16 138/78 100 04/23/18 05:58 04/23/18 05:58 04/23/18 05:58 04/23/18 05:58 04/23/18 05:58 General appearance: no acute distress - EENT Eyes: PERRL, EOM intact ENT: hearing intact - Respiratory Respiratory: bilateral: CTA - Cardiovascular Rhythm: regular Heart Sounds: Present: S1 & S2 - Gastrointestinal General gastrointestinal: Present: soft, non-tender, non-distended, normal bowel sounds - Neurologic Neurological: alert and oriented x3 - Labs CBC & Chem 7: 04/22/18 16:20 04/22/18 16:20 Lab Results: Laboratory Results - last 24 hr 04/22/18 04/22/18 04/22/18 16:20 16:20 16:20 WBC 3.4 L RBC 4.09 Hgb 13.3 Hct 39.8 MCV 97 MCH 33 H MCHC 33 RDW 17.8 H Plt Count 75 L [place] % (Auto) Castings Drafter Add Manual Diff Complete Total Counted 100 Seg Neuts % (Manual) 50.0 Band Neutrophils % 0 Lymphocytes % (Manual) 28.0 Reactive Lymphs % (Man) 0 Monocytes % (Manual) 20.0 H Eosinophils % (Manual) 1.0 Basophils % (Manual) 1.0 Metamyelocytes % 0 Myelocytes % 0 Promyelocytes % 0 Blast Cells % 0 Nucleated RBC % Not Reportable Seg Neutrophils # Man 1.7 L Band Neutrophils # 0.0 Lymphocytes # (Manual) 1.0 L Abs React Lymphs (Man) 0.0 Monocytes # (Manual) 0.7 Eosinophils # (Manual) 0.0 Basophils # (Manual) 0.0 Metamyelocytes # 0.0 Myelocytes # 0.0 Promyelocytes # 0.0 Blast Cells # 0.0 WBC Morphology Not Reportable Hypersegmented Neuts Not Reportable Hyposegmented Neuts Not Reportable Hypogranular Neuts Not Reportable Smudge Cells Not Reportable Toxic Granulation Not Reportable Toxic Vacuolation Not Reportable Dohle Bodies Not Reportable Pelger-Huet Anomaly Not Reportable Tony Rods Not Reportable Platelet Estimate Not Reportable Clumped Platelets Not Reportable Plt Clumps, EDTA Not Reportable Large Platelets Not Reportable Giant Platelets Not Reportable Platelet Satelliting Not Reportable Plt Morphology Comment Not Reportable RBC Morphology Normal Dimorphic RBCs Not Reportable Polychromasia Not Reportable Hypochromasia Not Reportable Poikilocytosis Not Reportable Anisocytosis Not Reportable Microcytosis Not Reportable Macrocytosis Not Reportable Spherocytes Not Reportable Pappenheimer Bodies Not Reportable Sickle Cells Not Reportable Target Cells Not Reportable Tear Drop Cells Not Reportable Ovalocytes Not Reportable Helmet Cells Not Reportable Welsh-Luke Bodies Not Reportable [place] Rings Not Reportable [place] Cells Not Reportable Bite Cells Not Reportable Crenated Cell Not Reportable Elliptocytes Not Reportable Acanthocytes (Spur) Not Reportable Rouleaux Not Reportable Hemoglobin C Crystals Not Reportable Schistocytes Not Reportable Malaria parasites Not Reportable Monster Bodies Not Reportable Hem Pathologist Commnt No Sodium 139 Potassium 3.9 Chloride 107.7 H Carbon Dioxide 23 Anion Gap 12 BUN 8 Creatinine 0.4 L Estimated GFR > 60 BUN/Creatinine Ratio 20 Glucose 103 H Calcium 8.5 Total Bilirubin 2.50 H AST 60 H ALT 35 Alkaline Phosphatase 131 H Ammonia 139.0 H Total Protein 6.7 Albumin 2.8 L Albumin/Globulin Ratio 0.7 Lipase 40 Urine Color Urine Turbidity Urine pH Ur Specific [place] Urine Protein Urine Glucose (UA) Urine Ketones Urine Blood Urine Nitrite Urine Bilirubin Urine Urobilinogen Ur Leukocyte Esterase Urine WBC (Auto) Urine RBC (Auto) Urine Bacteria (Auto) Urine Mucus Salicylates Urine Opiates Screen Urine Methadone Screen Acetaminophen Ur Barbiturates Screen Ur Phencyclidine Scrn Ur Amphetamines Screen U Benzodiazepines Scrn Urine Cocaine Screen U Marijuana (THC) Screen Drugs of Abuse Note Plasma/Serum Alcohol 04/22/18 04/22/18 04/22/18 16:32 16:32 16:32 WBC RBC Hgb Hct MCV MCH MCHC RDW Plt Count [place] % (Auto) Add Manual Diff Total Counted Seg Neuts % (Manual) Band Neutrophils % Lymphocytes % (Manual) Reactive Lymphs % (Man) Monocytes % (Manual) Eosinophils % (Manual) Basophils % (Manual) Metamyelocytes % Myelocytes % Promyelocytes % Blast Cells % Nucleated RBC % Seg Neutrophils # Man Band Neutrophils # Lymphocytes # (Manual) Abs React Lymphs (Man) Monocytes # (Manual) Eosinophils # (Manual) Basophils # (Manual) Metamyelocytes # Myelocytes # Promyelocytes # Blast Cells # WBC Morphology Hypersegmented Neuts Hyposegmented Neuts Hypogranular Neuts Smudge Cells Toxic Granulation Toxic Vacuolation Dohle Bodies Pelger-Huet Anomaly Tony Rods Platelet Estimate Clumped Platelets Plt Clumps, EDTA Large Platelets Giant Platelets Platelet Satelliting Plt Morphology Comment RBC Morphology Dimorphic RBCs Polychromasia Hypochromasia Poikilocytosis Anisocytosis Microcytosis Macrocytosis Spherocytes Pappenheimer Bodies Sickle Cells Target Cells Tear Drop Cells Ovalocytes Helmet Cells Welsh-Luke Bodies [place] Cells Bite Cells Crenated Cell Elliptocytes Acanthocytes (Spur) Rouleaux Hemoglobin C Crystals Schistocytes Malaria parasites Monster Bodies Hem Pathologist Commnt Sodium Potassium Chloride Carbon Dioxide Anion Gap BUN Creatinine Estimated GFR BUN/Creatinine Ratio Glucose Calcium Total Bilirubin AST ALT Alkaline Phosphatase Ammonia Total Protein Albumin Albumin/Globulin Ratio Lipase Urine Color Urine Turbidity Urine pH Ur Specific [place] Urine Protein Urine Glucose (UA) Urine Ketones Urine Blood Urine Nitrite Urine Bilirubin Urine Urobilinogen Ur Leukocyte Esterase Urine WBC (Auto) Urine RBC (Auto) Urine Bacteria (Auto) Urine Mucus Salicylates < 0.3 L Urine Opiates Screen Urine Methadone Screen Acetaminophen < 5.0 L Ur Barbiturates Screen Ur Phencyclidine Scrn Ur Amphetamines Screen U Benzodiazepines Scrn Urine Cocaine Screen U Marijuana (THC) Screen Drugs of Abuse Note Plasma/Serum Alcohol < 0.01 04/22/18 04/22/18 04/23/18 18:22 18:22 07:12 WBC RBC Hgb Hct MCV MCH MCHC RDW Plt Count [place] % (Auto) Add Manual Diff Total Counted Seg Neuts % (Manual) Band Neutrophils % Lymphocytes % (Manual) Reactive Lymphs % (Man) Monocytes % (Manual) Eosinophils % (Manual) Basophils % (Manual) Metamyelocytes % Myelocytes % Promyelocytes % Blast Cells % Nucleated RBC % Seg Neutrophils # Man Band Neutrophils # Lymphocytes # (Manual) Abs React Lymphs (Man) Monocytes # (Manual) Eosinophils # (Manual) Basophils # (Manual) Metamyelocytes # Myelocytes # Promyelocytes # Blast Cells # WBC Morphology Hypersegmented Neuts Hyposegmented Neuts Hypogranular Neuts Smudge Cells Toxic Granulation Toxic Vacuolation Dohle Bodies Pelger-Huet Anomaly Tony Rods Platelet Estimate Clumped Platelets Plt Clumps, EDTA Large Platelets Giant Platelets Platelet Satelliting Plt Morphology Comment RBC Morphology Dimorphic RBCs Polychromasia Hypochromasia Poikilocytosis Anisocytosis Microcytosis Macrocytosis Spherocytes Pappenheimer Bodies Sickle Cells Target Cells Tear Drop Cells Ovalocytes Helmet Cells Welsh-Luke Bodies [place] Cells Bite Cells Crenated Cell Elliptocytes Acanthocytes (Spur) Rouleaux Hemoglobin C Crystals Schistocytes Malaria parasites Monster Bodies Hem Pathologist Commnt Sodium Potassium Chloride Carbon Dioxide Anion Gap BUN Creatinine Estimated GFR BUN/Creatinine Ratio Glucose Calcium Total Bilirubin AST ALT Alkaline Phosphatase Ammonia 55.0 Total Protein Albumin Albumin/Globulin Ratio Lipase Urine Color Yellow Urine Turbidity Clear Urine pH 6.0 Ur Specific [place] 1.006 Urine Protein <15 mg/dl Urine Glucose (UA) Neg Urine Ketones Neg Urine Blood Neg Urine Nitrite Pos Urine Bilirubin Neg Urine Urobilinogen 4.0 Ur Leukocyte Esterase Tr Urine WBC (Auto) 3.0 Urine RBC (Auto) 3.0 Urine Bacteria (Auto) 1+ Urine Mucus Few Salicylates Urine Opiates Screen Presumptive negative Urine Methadone Screen Presumptive negative Acetaminophen Ur Barbiturates Screen Presumptive negative Ur Phencyclidine Scrn Presumptive negative Ur Amphetamines Screen Presumptive positive U Benzodiazepines Scrn Presumptive negative Urine Cocaine Screen Presumptive negative U Marijuana (THC) Screen Presumptive negative Drugs of Abuse Note Disclamer Plasma/Serum Alcohol Assessment and Plan 1.hepatic encephalopathy 2.cirrhosis 3.substance abuse -afebrile -WBC WNL -plt 75, H/H WNL (13.3/39.8)- no active signs of bleeding -T.jennifer 2.50, AST 60, ALT 35, alk phos 55 -ammonia 139 on admission- now trended down to 55 -will order hepatitis panel and INR in am -CT scan 02/19/2018 showed gallstones (no acute cholecystitis), cirrhosis (no ascites), and varices noted in upper abdomen (may need surveillance EGD as outpatient) -etiology- hx of alcoholic cirrhosis -clinically, patient is stable with encephalopathy improved. Denies abd pain, N/ V, or signs of bleeding. Tolerating diet -continue to trend labs and current medications (lactulose for a goal of BMs x 2 -3/day and xifaxan) -low protein diet -continued alcohol abstinence and substance cessation discussed with patient in detail and encouraged -continue supportive care -if labs are stable in am, patient is okay to be d/c per GI standpoint with follow up clinic appt in 2-3 weeks <ELIE MORENO - Last Filed: 04/23/18 16:03> Medications and Allergies Active Meds: Active Medications Fluoxetine HCl (Prozac) 20 mg PO BID [facility] Last Admin: 04/23/18 12:26 Dose: 20 mg Furosemide (Lasix) 40 mg PO QDAY [facility] Last Admin: 04/23/18 12:27 Dose: 40 mg Heparin Sodium (Porcine) (Heparin) 5,000 unit SUB-Q Q12HR [facility] Last Admin: 04/23/18 12:31 Dose: 5,000 unit Hydromorphone HCl (Dilaudid) 0.5 mg IV Q6H PRN PRN Reason: Pain , Severe (7-10) Ibuprofen (Motrin) 600 mg PO Q6H PRN PRN Reason: Pain, Mild (1-3) Last Admin: 04/23/18 07:18 Dose: 600 mg Lactulose (Cephulac) 20 gm PO TID [facility] Last Admin: 04/23/18 12:26 Dose: 20 gm Nadolol (Corgard) 10 mg PO QDAY [facility] Last Admin: 04/23/18 13:26 Dose: 10 mg Ondansetron HCl (Zofran) 4 mg IV Q8H PRN PRN Reason: Nausea And Vomiting Pantoprazole Sodium (Protonix) 20 mg PO QDAY [facility] Last Admin: 04/23/18 12:27 Dose: 20 mg Potassium Chloride (K-Dur) 10 meq PO QDAY [facility] Last Admin: 04/23/18 12:27 Dose: 10 meq Rifaximin (Xifaxan) 550 mg PO BID [facility] Last Admin: 04/23/18 12:26 Dose: 550 mg Exam - Constitutional Vital Signs: Temp Pulse Resp BP Pulse Ox 99.3 F 80 16 145/71 100 04/23/18 12:51 04/23/18 12:51 04/23/18 12:51 04/23/18 12:51 04/23/18 12:51 - Labs CBC & Chem 7: 04/22/18 16:20 04/22/18 16:20 Lab Results: Laboratory Results - last 24 hr 04/22/18 04/22/18 04/22/18 16:20 16:20 16:20 WBC 3.4 L RBC 4.09 Hgb 13.3 Hct 39.8 MCV 97 MCH 33 H MCHC 33 RDW 17.8 H Plt Count 75 L [place] % (Auto) Cast[place] Drafter Add Manual Diff Complete Total Counted 100 Seg Neuts % (Manual) 50.0 Band Neutrophils % 0 Lymphocytes % (Manual) 28.0 Reactive Lymphs % (Man) 0 Monocytes % (Manual) 20.0 H Eosinophils % (Manual) 1.0 Basophils % (Manual) 1.0 Metamyelocytes % 0 Myelocytes % 0 Promyelocytes % 0 Blast Cells % 0 Nucleated RBC % Not Reportable Seg Neutrophils # Man 1.7 L Band Neutrophils # 0.0 Lymphocytes # (Manual) 1.0 L Abs React Lymphs (Man) 0.0 Monocytes # (Manual) 0.7 Eosinophils # (Manual) 0.0 Basophils # (Manual) 0.0 Metamyelocytes # 0.0 Myelocytes # 0.0 Promyelocytes # 0.0 Blast Cells # 0.0 WBC Morphology Not Reportable Hypersegmented Neuts Not Reportable Hyposegmented Neuts Not Reportable Hypogranular Neuts Not Reportable Smudge Cells Not Reportable Toxic Granulation Not Reportable Toxic Vacuolation Not Reportable Dohle Bodies Not Reportable Pelger-Huet Anomaly Not Reportable Tony Rods Not Reportable Platelet Estimate Not Reportable Clumped Platelets Not Reportable Plt Clumps, EDTA Not Reportable Large Platelets Not Reportable Giant Platelets Not Reportable Platelet Satelliting Not Reportable Plt Morphology Comment Not Reportable RBC Morphology Normal Dimorphic RBCs Not Reportable Polychromasia Not Reportable Hypochromasia Not Reportable Poikilocytosis Not Reportable Anisocytosis Not Reportable Microcytosis Not Reportable Macrocytosis Not Reportable Spherocytes Not Reportable Pappenheimer Bodies Not Reportable Sickle Cells Not Reportable Target Cells Not Reportable Tear Drop Cells Not Reportable Ovalocytes Not Reportable Helmet Cells Not Reportable Welsh-Luke Bodies Not Reportable [place] Not Reportable [place] Cells Not Reportable Bite Cells Not Reportable Crenated Cell Not Reportable Elliptocytes Not Reportable Acanthocytes (Spur) Not Reportable Rouleaux Not Reportable Hemoglobin C Crystals Not Reportable Schistocytes Not Reportable Malaria parasites Not Reportable Monster Bodies Not Reportable Hem Pathologist Commnt No Sodium 139 Potassium 3.9 Chloride 107.7 H Carbon Dioxide 23 Anion Gap 12 BUN 8 Creatinine 0.4 L Estimated GFR > 60 BUN/Creatinine Ratio 20 Glucose 103 H Calcium 8.5 Total Bilirubin 2.50 H AST 60 H ALT 35 Alkaline Phosphatase 131 H Ammonia 139.0 H Total Protein 6.7 Albumin 2.8 L Albumin/Globulin Ratio 0.7 Lipase 40 Urine Color Urine Turbidity Urine pH Ur Specific [place] Urine Protein Urine Glucose (UA) Urine Ketones Urine Blood Urine Nitrite Urine Bilirubin Urine Urobilinogen Ur Leukocyte Esterase Urine WBC (Auto) Urine RBC (Auto) Urine Bacteria (Auto) Urine Mucus Salicylates Urine Opiates Screen Urine Methadone Screen Acetaminophen Ur Barbiturates Screen Ur Phencyclidine Scrn Ur Amphetamines Screen U Benzodiazepines Scrn Urine Cocaine Screen U Marijuana (THC) Screen Drugs of Abuse Note Plasma/Serum Alcohol 04/22/18 04/22/18 04/22/18 16:32 16:32 16:32 WBC RBC Hgb Hct MCV MCH MCHC RDW Plt Count [place] % (Auto) Add Manual Diff Total Counted Seg Neuts % (Manual) Band Neutrophils % Lymphocytes % (Manual) Reactive Lymphs % (Man) Monocytes % (Manual) Eosinophils % (Manual) Basophils % (Manual) Metamyelocytes % Myelocytes % Promyelocytes % Blast Cells % Nucleated RBC % Seg Neutrophils # Man Band Neutrophils # Lymphocytes # (Manual) Abs React Lymphs (Man) Monocytes # (Manual) Eosinophils # (Manual) Basophils # (Manual) Metamyelocytes # Myelocytes # Promyelocytes # Blast Cells # WBC Morphology Hypersegmented Neuts Hyposegmented Neuts Hypogranular Neuts Smudge Cells Toxic Granulation Toxic Vacuolation Dohle Bodies Pelger-Huet Anomaly Tony Rods Platelet Estimate Clumped Platelets Plt Clumps, EDTA Large Platelets Giant Platelets Platelet Satelliting Plt Morphology Comment RBC Morphology Dimorphic RBCs Polychromasia Hypochromasia Poikilocytosis Anisocytosis Microcytosis Macrocytosis Spherocytes Pappenheimer Bodies Sickle Cells Target Cells Tear Drop Cells Ovalocytes Helmet Cells Welsh-Luke Bodies [place] Cells Bite Cells Crenated Cell Elliptocytes Acanthocytes (Spur) Rouleaux Hemoglobin C Crystals Schistocytes Malaria parasites Monster Bodies Hem Pathologist Commnt Sodium Potassium Chloride Carbon Dioxide Anion Gap BUN Creatinine Estimated GFR BUN/Creatinine Ratio Glucose Calcium Total Bilirubin AST ALT Alkaline Phosphatase Ammonia Total Protein Albumin Albumin/Globulin Ratio Lipase Urine Color Urine Turbidity Urine pH Ur Specific [place] Urine Protein Urine Glucose (UA) Urine Ketones Urine Blood Urine Nitrite Urine Bilirubin Urine Urobilinogen Ur Leukocyte Esterase Urine WBC (Auto) Urine RBC (Auto) Urine Bacteria (Auto) Urine Mucus Salicylates < 0.3 L Urine Opiates Screen Urine Methadone Screen Acetaminophen < 5.0 L Ur Barbiturates Screen Ur Phencyclidine Scrn Ur Amphetamines Screen U Benzodiazepines Scrn Urine Cocaine Screen U Marijuana (THC) Screen Drugs of Abuse Note Plasma/Serum Alcohol < 0.01 04/22/18 04/22/18 04/23/18 18:22 18:22 07:12 WBC RBC Hgb Hct MCV MCH MCHC RDW Plt Count [place] % (Auto) Add Manual Diff Total Counted Seg Neuts % (Manual) Band Neutrophils % Lymphocytes % (Manual) Reactive Lymphs % (Man) Monocytes % (Manual) Eosinophils % (Manual) Basophils % (Manual) Metamyelocytes % Myelocytes % Promyelocytes % Blast Cells % Nucleated RBC % Seg Neutrophils # Man Band Neutrophils # Lymphocytes # (Manual) Abs React Lymphs (Man) Monocytes # (Manual) Eosinophils # (Manual) Basophils # (Manual) Metamyelocytes # Myelocytes # Promyelocytes # Blast Cells # WBC Morphology Hypersegmented Neuts Hyposegmented Neuts Hypogranular Neuts Smudge Cells Toxic Granulation Toxic Vacuolation Dohle Bodies Pelger-Huet Anomaly Tony Rods Platelet Estimate Clumped Platelets Plt Clumps, EDTA Large Platelets Giant Platelets Platelet Satelliting Plt Morphology Comment RBC Morphology Dimorphic RBCs Polychromasia Hypochromasia Poikilocytosis Anisocytosis Microcytosis Macrocytosis Spherocytes Pappenheimer Bodies Sickle Cells Target Cells Tear Drop Cells Ovalocytes Helmet Cells Welsh-Luke Bodies [place] Cells Bite Cells Crenated Cell Elliptocytes Acanthocytes (Spur) Rouleaux Hemoglobin C Crystals Schistocytes Malaria parasites Monster Bodies Hem Pathologist Commnt Sodium Potassium Chloride Carbon Dioxide Anion Gap BUN Creatinine Estimated GFR BUN/Creatinine Ratio Glucose Calcium Total Bilirubin AST ALT Alkaline Phosphatase Ammonia 55.0 Total Protein Albumin Albumin/Globulin Ratio Lipase Urine Color Yellow Urine Turbidity Clear Urine pH 6.0 Ur Specific [place] 1.006 Urine Protein <15 mg/dl Urine Glucose (UA) Neg Urine Ketones Neg Urine Blood Neg Urine Nitrite Pos Urine Bilirubin Neg Urine Urobilinogen 4.0 Ur Leukocyte Esterase Tr Urine WBC (Auto) 3.0 Urine RBC (Auto) 3.0 Urine Bacteria (Auto) 1+ Urine Mucus Few Salicylates Urine Opiates Screen Presumptive negative Urine Methadone Screen Presumptive negative Acetaminophen Ur Barbiturates Screen Presumptive negative Ur Phencyclidine Scrn Presumptive negative Ur Amphetamines Screen Presumptive positive U Benzodiazepines Scrn Presumptive negative Urine Cocaine Screen Presumptive negative U Marijuana (THC) Screen Presumptive negative Drugs of Abuse Note Disclamer Plasma/Serum Alcohol Assessment and Plan Pt seen and examined. Agree with note above. patient with h/o alcohol cirrhosis presenting with HE, now improved. cont lactulose and xifaxin. noted + UDS for amphetamines. she denies recent alcohol use. she can initiate transplant work-up as outpatient with [facility] as she was previously recommended to do. She can be discharged from gi stand point given improved mental status with outpatient follow-up in a couple weeks.
[2018-04-23] MEDS: PROzac PO SCH ×2 (12:26→22:49)
[2018-04-23] MEDS: XIFAXAN PO SCH ×2 (12:26→22:49)
[2018-04-23] MEDS: K-DUR PO SCH (12:27)
[2018-04-23] MEDS: PROTONIX PO SCH (12:27)
[2018-04-23] MEDS: LASIX PO SCH (12:27)
[2018-04-23] MEDS: HEPARIN SUB-Q SCH ×2 (12:31→22:49)
[2018-04-23] MEDS: CORGARD PO SCH (13:26)
--- NOTE | 2018-04-23 17:51 | Progress Note ---
Assessment and Plan Assessment and plan: --Metabolic and Neuropathy; secondary to hyperammonemia Patient is more alert and awake today, still confused Continue current management --Hepatic encephalopathy; present on admission Ammonia level significantly improved --History of cirrhosis liver; transaminitis Probably alcohol related, GI following Closely monitor --Thrombocytopenia; probably secondary to alcoholic liver disease Closely monitor, no evidence of bleeding --Substance abuse; positive for amphetamine Counseling done strongly advised to quit recreational drug use --DVT prophylaxis; SCDs No pharmacologic anticoagulation in view of thrombocytopenia Closely monitor the patient and adjust management as needed Plan of care reviewed with the patient and the family member at the bedside as well as the nurse History Interval history: Patient seen and examined medical records reviewed Patient had labile mood, very anxious, verbal Agitated and tremulous patient reports that she has a lot of stress at home taking care of many people Vital signs reviewed Hospitalist Physical - Constitutional Vitals: Temp Pulse Resp BP Pulse Ox 99.3 F 80 16 145/71 100 04/23/18 12:51 04/23/18 12:51 04/23/18 12:51 04/23/18 12:51 04/23/18 12:51 General appearance: Present: no acute distress, well-nourished - EENT Eyes: Present: PERRL, EOM intact - Neck Neck: Present: supple, normal ROM - Respiratory Respiratory effort: normal Respiratory: negative: rales, rhonchi, wheezing - Cardiovascular Rhythm: regular Heart Sounds: Present: S1 & S2 - Extremities Extremities: no ischemia, No edema - Abdominal General gastrointestinal: soft, non-tender, non-distended, normal bowel sounds - Integumentary Integumentary: Present: clear, warm - Psychiatric Psychiatric: appropriate mood/affect, agitated, other (anxious) - Neurologic Neurologic: moves all extremities Results - Labs CBC & Chem 7: 04/22/18 16:20 04/22/18 16:20 Labs: Laboratory Last Values WBC 3.4 K/mm3 (4.5-11.0) L 04/22/18 16:20 RBC 4.09 M/mm3 (3.65-5.03) 04/22/18 16:20 Hgb 13.3 gm/dl (10.1-14.3) 04/22/18 16:20 Hct 39.8 % (30.3-42.9) 04/22/18 16:20 MCV 97 fl (79-97) 04/22/18 16:20 MCH 33 pg (28-32) H 04/22/18 16:20 MCHC 33 % (30-34) 04/22/18 16:20 RDW 17.8 % (13.2-15.2) H 04/22/18 16:20 Plt Count 75 K/mm3 (140-440) L 04/22/18 16:20 [place] % (Auto) Knitting Machine Operator 04/22/18 16:20 Add Manual Diff Complete 04/22/18 16:20 Total Counted 100 04/22/18 16:20 Seg Neuts % (Manual) 50.0 % (40.0-70.0) 04/22/18 16:20 Band Neutrophils % 0 % 04/22/18 16:20 Lymphocytes % (Manual) 28.0 % (13.4-35.0) 04/22/18 16:20 Reactive Lymphs % (Man) 0 % 04/22/18 16:20 Monocytes % (Manual) 20.0 % (0.0-7.3) H 04/22/18 16:20 Eosinophils % (Manual) 1.0 % (0.0-4.3) 04/22/18 16:20 Basophils % (Manual) 1.0 % (0.0-1.8) 04/22/18 16:20 Metamyelocytes % 0 % 04/22/18 16:20 Myelocytes % 0 % 04/22/18 16:20 Promyelocytes % 0 % 04/22/18 16:20 Blast Cells % 0 % 04/22/18 16:20 Nucleated RBC % Not Reportable 04/22/18 16:20 Seg Neutrophils # Man 1.7 K/mm3 (1.8-7.7) L 04/22/18 16:20 Band Neutrophils # 0.0 K/mm3 04/22/18 16:20 Lymphocytes # (Manual) 1.0 K/mm3 (1.2-5.4) L 04/22/18 16:20 Abs React Lymphs (Man) 0.0 K/mm3 04/22/18 16:20 Monocytes # (Manual) 0.7 K/mm3 (0.0-0.8) 04/22/18 16:20 Eosinophils # (Manual) 0.0 K/mm3 (0.0-0.4) 04/22/18 16:20 Basophils # (Manual) 0.0 K/mm3 (0.0-0.1) 04/22/18 16:20 Metamyelocytes # 0.0 K/mm3 04/22/18 16:20 Myelocytes # 0.0 K/mm3 04/22/18 16:20 Promyelocytes # 0.0 K/mm3 04/22/18 16:20 Blast Cells # 0.0 K/mm3 04/22/18 16:20 WBC Morphology Not Reportable 04/22/18 16:20 Hypersegmented Neuts Not Reportable 04/22/18 16:20 Hyposegmented Neuts Not Reportable 04/22/18 16:20 Hypogranular Neuts Not Reportable 04/22/18 16:20 Smudge Cells Not Reportable 04/22/18 16:20 Toxic Granulation Not Reportable 04/22/18 16:20 Toxic Vacuolation Not Reportable 04/22/18 16:20 Dohle Bodies Not Reportable 04/22/18 16:20 Pelger-Huet Anomaly Not Reportable 04/22/18 16:20 Tony Rods Not Reportable 04/22/18 16:20 Platelet Estimate Not Reportable 04/22/18 16:20 Clumped Platelets Not Reportable 04/22/18 16:20 Plt Clumps, EDTA Not Reportable 04/22/18 16:20 Large Platelets Not Reportable 04/22/18 16:20 Giant Platelets Not Reportable 04/22/18 16:20 Platelet Satelliting Not Reportable 04/22/18 16:20 Plt Morphology Comment Not Reportable 04/22/18 16:20 RBC Morphology Normal 04/22/18 16:20 Dimorphic RBCs Not Reportable 04/22/18 16:20 Polychromasia Not Reportable 04/22/18 16:20 Hypochromasia Not Reportable 04/22/18 16:20 Poikilocytosis Not Reportable 04/22/18 16:20 Anisocytosis Not Reportable 04/22/18 16:20 Microcytosis Not Reportable 04/22/18 16:20 Macrocytosis Not Reportable 04/22/18 16:20 Spherocytes Not Reportable 04/22/18 16:20 Pappenheimer Bodies Not Reportable 04/22/18 16:20 Sickle Cells Not Reportable 04/22/18 16:20 Target Cells Not Reportable 04/22/18 16:20 Tear Drop Cells Not Reportable 04/22/18 16:20 Ovalocytes Not Reportable 04/22/18 16:20 Helmet Cells Not Reportable 04/22/18 16:20 Welsh-[place] Bodies Not Reportable 04/22/18 16:20 Sutton Rings Not Reportable 04/22/18 16:20 Konrad Cells Not Reportable 04/22/18 16:20 Bite Cells Not Reportable 04/22/18 16:20 Crenated Cell Not Reportable 04/22/18 16:20 Elliptocytes Not Reportable 04/22/18 16:20 Acanthocytes (Spur) Not Reportable 04/22/18 16:20 Rouleaux Not Reportable 04/22/18 16:20 Hemoglobin C Crystals Not Reportable 04/22/18 16:20 Schistocytes Not Reportable 04/22/18 16:20 Malaria parasites Not Reportable 04/22/18 16:20 Monster Bodies Not Reportable 04/22/18 16:20 Hem Pathologist Commnt No 04/22/18 16:20 Sodium 139 mmol/L (137-145) 04/22/18 16:20 Potassium 3.9 mmol/L (3.6-5.0) 04/22/18 16:20 Chloride 107.7 mmol/L (98-107) H 04/22/18 16:20 Carbon Dioxide 23 mmol/L (22-30) 04/22/18 16:20 Anion Gap 12 mmol/L 04/22/18 16:20 BUN 8 mg/dL (7-17) 04/22/18 16:20 Creatinine 0.4 mg/dL (0.7-1.2) L 04/22/18 16:20 Estimated GFR > 60 ml/min 04/22/18 16:20 BUN/Creatinine Ratio 20 % 04/22/18 16:20 Glucose 103 mg/dL (65-100) H 04/22/18 16:20 Calcium 8.5 mg/dL (8.4-10.2) 04/22/18 16:20 Total Bilirubin 2.50 mg/dL (0.1-1.2) H 04/22/18 16:20 AST 60 units/L (5-40) H 04/22/18 16:20 ALT 35 units/L (7-56) 04/22/18 16:20 Alkaline Phosphatase 131 units/L (35-129) H 04/22/18 16:20 Ammonia 55.0 umol/L (25-60) 04/23/18 07:12 Total Protein 6.7 g/dL (6.3-8.2) 04/22/18 16:20 Albumin 2.8 g/dL (3.9-5) L 04/22/18 16:20 Albumin/Globulin Ratio 0.7 % 04/22/18 16:20 Lipase 40 units/L (13-60) 04/22/18 16:20 Urine Color Yellow (Yellow) 04/22/18 18:22 Urine Turbidity Clear (Clear) 04/22/18 18:22 Urine pH 6.0 (5.0-7.0) 04/22/18 18:22 Ur Specific [place] 1.006 (1.003-1.030) 04/22/18 18:22 Urine Protein <15 mg/dl mg/dL (Negative) 04/22/18 18:22 Urine Glucose (UA) Neg mg/dL (Negative) 04/22/18 18:22 Urine Ketones Neg mg/dL (Negative) 04/22/18 18:22 Urine Blood Neg (Negative) 04/22/18 18:22 Urine Nitrite Pos (Negative) 04/22/18 18:22 Urine Bilirubin Neg (Negative) 04/22/18 18:22 Urine Urobilinogen 4.0 mg/dL (<2.0) 04/22/18 18:22 Ur Leukocyte Esterase Tr (Negative) 04/22/18 18:22 Urine WBC (Auto) 3.0 /HPF (0.0-6.0) 04/22/18 18:22 Urine RBC (Auto) 3.0 /HPF (0.0-6.0) 04/22/18 18:22 Urine Bacteria (Auto) 1+ /HPF (Negative) 04/22/18 18:22 Urine Mucus Few /HPF 04/22/18 18:22 Salicylates < 0.3 mg/dL (2.8-20.0) L 04/22/18 16:32 Urine Opiates Screen Presumptive negative 04/22/18 18:22 Urine Methadone Screen Presumptive negative 04/22/18 18:22 Acetaminophen < 5.0 ug/mL (10.0-30.0) L 04/22/18 16:32 Ur Barbiturates Screen Presumptive negative 04/22/18 18:22 Ur Phencyclidine Scrn Presumptive negative 04/22/18 18:22 Ur Amphetamines Screen Presumptive positive 04/22/18 18:22 U Benzodiazepines Scrn Presumptive negative 04/22/18 18:22 Urine Cocaine Screen Presumptive negative 04/22/18 18:22 U Marijuana (THC) Screen Presumptive negative 04/22/18 18:22 Drugs of Abuse Note Disclamer 04/22/18 18:22 Plasma/Serum Alcohol < 0.01 % (0-0.07) 04/22/18 16:32
[2018-04-24 06:27] LABS: INR 1.53 (0.87-1.13)
[2018-04-24 06:55] LABS: Alanine Aminotransferase 33 units/L (7-56); Albumin 2.7 g/dL (3.9-5); BUN/Creatinine Ratio 23; Blood Urea Nitrogen 7 mg/dL (7-17); Calcium 8.3 mg/dL (8.4-10.2); Hemolysis Index 20
[2018-04-24 06:57] LABS: Hepatitis B Core IgM Non-Reactive (NonReactive); Hepatitis B Surface Antigen Non-Reactive (Negative); Hepatitis C Virus Antibody Reactive (NonReactive)
[2018-04-24] MEDS: CEPHULAC PO SCH ×2 (08:00→14:00)
[2018-04-24] MEDS: HEPARIN SUB-Q SCH (10:00)
[2018-04-24] MEDS: CORGARD PO SCH (10:54)
[2018-04-24] MEDS: LASIX PO SCH (10:54)
[2018-04-24] MEDS: PROTONIX PO SCH (10:54)
[2018-04-24] MEDS: XIFAXAN PO SCH (10:54)
[2018-04-24] MEDS: PROzac PO SCH (10:54)
[2018-04-24] MEDS: K-DUR PO SCH (10:54)
--- NOTE | 2018-04-24 11:57 | Gastroenterology Progress Note ---
Assessment and Plan 1.hepatic encephalopathy 2.cirrhosis 3.substance abuse -afebrile -WBC WNL -plt 75, INR 1.53 -T.jennifer 3.70, AST 58, ALT 33, alk phos 119-stable -H/H WNL (13.3/39.8) -ammonia 139 on admission- now trended down to 55 -hepatitis panel yesterday revealed hepatitis C antibody positive- results discussed with patient (further evaluation/treatment as outpatient) -CT scan 02/19/2018 showed gallstones (no acute cholecystitis), cirrhosis (no ascites), and varices noted in upper abdomen (may need surveillance EGD as outpatient) -etiology- hx of alcoholic cirrhosis (likely combination with + hep C) -clinically, patient is stable with encephalopathy resolved. Denies abd pain, N/ V, or signs of bleeding. Tolerating diet -low protein diet -continue current medications and supportive care -continue alcohol abstinence and substance cessation (+UDS for amphetamines) discussed with patient in detail and encouraged -patient okay to be d/c per GI standpoint on lactulose and xifaxin with follow up clinic appt in 2-3 weeks Subjective Date of service: 04/24/18 Principal diagnosis: hepatic encephalopathy, cirrhosis Interval history: Patient sitting up in bed this am, alert and oriented x 3, w/o distress and family at bedside. Denies abd pain, N/V, or signs of bleeding. Tolerating diet. Objective - Constitutional Vitals: Temp Pulse Resp BP Pulse Ox 98.6 F 71 16 102/56 99 04/24/18 00:34 04/24/18 10:54 04/24/18 00:34 04/24/18 00:34 04/24/18 00:34 General appearance: no acute distress - EENT Eyes: PERRL, EOM intact ENT: hearing intact - Respiratory Respiratory: bilateral: CTA - Cardiovascular Rhythm: regular Heart Sounds: Present: S1 & S2 - Gastrointestinal General gastrointestinal: Present: soft, non-tender, non-distended, normal bowel sounds - Neurologic Neurological: alert and oriented x3 - Labs CBC & Chem 7: 04/22/18 16:20 04/24/18 05:57 Labs: Laboratory Results - last 24 hr 04/24/18 04/24/18 04/24/18 05:57 05:57 05:57 PT 19.0 H INR 1.53 H Sodium 142 Potassium 3.8 Chloride 110.7 H Carbon Dioxide 21 L Anion Gap 14 BUN 7 Creatinine 0.3 L Estimated GFR > 60 BUN/Creatinine Ratio 23 Glucose 86 Calcium 8.3 L Total Bilirubin 3.70 H AST 58 H ALT 33 Alkaline Phosphatase 119 Total Protein 6.8 Albumin 2.7 L Albumin/Globulin Ratio 0.7 Hep Bs Antigen Non-reactive Hep B Core IgM Ab Non-reactive Hepatitis C Antibody Reactive A
--- NOTE | 2018-04-24 13:27 | Discharge Summary ---
Providers - Providers Date of Admission: 04/22/18 22:12 Date of discharge: 04/24/18 Attending physician: ALEXANDREA COLLIER 04/23/18 06:00 Consult to Physician [CONS] Routine Comment: Consulting Provider: JORDAN MERINO Physician Instructions: Reason For Exam: HEPATIC ENCEPHALOPATHY AND LIVER CIRRHOSIS Primary care physician: INTERNAL INVESTIGATOR Hospitalization Condition: Fair Disposition: DC-01 TO HOME OR SELFCARE Time spent for discharge: 32 min Core Measure Documentation - Palliative Care Palliative Care/ Comfort Measures: Not Applicable - Core Measures Any of the following diagnoses?: none Exam - Constitutional Vitals: Temp Pulse Resp BP Pulse Ox 98.6 F 71 16 102/56 99 04/24/18 00:34 04/24/18 10:54 04/24/18 00:34 04/24/18 00:34 04/24/18 00:34 General appearance: Present: no acute distress, well-nourished - EENT Eyes: Present: PERRL, EOM intact - Neck Neck: Present: supple, normal ROM - Respiratory Respiratory effort: normal Respiratory: bilateral: diminished, negative: rales, rhonchi, wheezing - Cardiovascular Rhythm: regular Heart Sounds: Present: S1 & S2 - Extremities Extremities: no ischemia, No edema - Abdominal General gastrointestinal: Present: soft, non-tender, non-distended, normal bowel sounds - Integumentary Integumentary: Present: clear, warm - Musculoskeletal Musculoskeletal: strength equal bilaterally - Psychiatric Psychiatric: appropriate mood/affect, cooperative - Neurologic Neurologic: CNII-XII intact, moves all extremities Plan Activity: advance as tolerated Diet: regular Additional Instructions: Fall precautions. If you have nausea and vomiting severe abdominal pain, contact M.D. or go to emergency room Follow up with: PRIMARY CAREMD [Primary Care Provider] - 3-5 Days ELIE MORENO MD [Staff Physician] - 7 Days
[2018-04-24 13:46] VITALS: BP 117/70
--- NOTE | 2018-04-24 16:22 | Query- Nutrition ---
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 Questions asked do not imply a particular answer is desired or expected. We greatly appreciate your clarification on this issue. Clinical Documentation States: 53-year-old female presents to the emergency department via EMS from home with what appears to be some generalized weakness, confusion and some forgetfulness for the past few days. The patient herself is awake and says that she is here for "encephalopathy." The patient has a history of previous alcohol abuse and subsequent cirrhosis and liver failure and does have a previous history of elevated ammonia levels. Assessment and plan: --Metabolic and Neuropathy; secondary to hyperammonemia Patient is more alert and awake today, still confused Continue current management --Hepatic encephalopathy; present on admission Ammonia level significantly improved --History of cirrhosis liver; transaminitis Probably alcohol related, GI following Closely monitor --Thrombocytopenia; probably secondary to alcoholic liver disease Closely monitor, no evidence of bleeding --Substance abuse; positive for amphetamine Clinical Findings Show: BMI: 26 kg/m 04/22/18 04/24/18 Albumin 2.8 2.7 Please select the most appropriate option 3 [ ] Mild Malnutrition [ ] Moderate Malnutrition [x ] Severe Malnutrition Serum Albumin 2.8 to 3.4 g/dl or Pre-albumin 5 to 17 mg/dl1,2 Inadequate nutritional intake1,2,3,4 NPO > 5 days Weight loss: 5% in 1 month or 7.5% in 3 months or 10% in 6 months1, 3,4 BMI 16 to 18.4 or Weight <90% of ideal body weight1,2,3,4 Serum Albumin < 2.8 g/ dl1,2 Lymphocytes < 1500/ L2 Inadequate nutritional intake3, high stress e.g. major trauma, sepsis,pancreatitis, ann etc. Decubitus ulcers1,2, , skin breakdown2, easy hair pluckability2 Weight <80% standard for height2 Triceps skin fold <3 mm2 Mid-arm muscle circumference <15 cm2 Creatinine-height index <60% standard2 [ ] Cachexia [ ] Emaciated w/Malnutrition [ ] Other: [ ] Unable to determine [ ] Comment/Explanation: Present on Admission: [x ] Yes (Y) [ ] Clinically undeterminable (W) [ ] No (N) Please also document response in your Progress Notes and/or Discharge Summary and indicate if the condition was present on admission. MTDD
[2018-04-26 07:36] LABS: Hepatitis A Antibody IgM NonReactive (NonReactive)
== END 2018-04-24 15:52 | disposition home or self-care (01) | DRG 441 ==
LOC: ED 14:28 → 3A 22:12
PROVIDERS: ADMIT Internal Medicine; ATTEND Internal Medicine
DX: K72.00 Acute and subacute hepatic failure without coma (principal); E43 Unspecified severe protein-calorie malnutrition; E72.20 Disorder of urea cycle metabolism, unspecified; K74.60 Unspecified cirrhosis of liver; Z88.2 Allergy status to sulfonamides; I10 Essential (primary) hypertension; Z87.891 Personal history of nicotine dependence; Z79.899 Other long term (current) drug therapy; G62.9 Polyneuropathy, unspecified; D69.6 Thrombocytopenia, unspecified; F15.10 Other stimulant abuse, uncomplicated; Z71.51 Drug abuse counseling and surveillance of drug abuser; F32.9 Major depressive disorder, single episode, unspecified
CPT/HCPCS: 36415; 70450; 80053; 80074; 80307; 80320; 81001; 82140; 83690; 85007; 85025; 85610; 93005; 93010; G0480; J1644; J2270; J7030

== ENCOUNTER 2019-03-15 02:55 | Inpatient (IN) | payer MEDICAID ==
[2019-03-15] MEDS ORDERED: ZOFRAN IV ONE (03:31)
[2019-03-15] MEDS ORDERED: MORPHINE IV ONE ×2 (03:31→10:01)
[2019-03-15] MEDS ORDERED: NACL 0.9% 500 ML 500 ML IV ONE ×2 (03:31→05:49)
--- NOTE | 2019-03-15 03:33 | Emergency Department Report ---
<LEONEL LOZA - Last Filed: 03/15/19 05:31> ED General Adult HPI - General Chief complaint: Abdominal Pain Stated complaint: ABD PAIN, N/V Time Seen by Provider: 03/15/19 03:17 Source: patient, EMS (ems notes not available at time of chart dictation), RN notes reviewed, old records reviewed Mode of arrival: Stretcher Limitations: No Limitations - History of Present Illness Initial comments: Primary care Dr.: Arie Robledo Gastroenterology: Dr. Jodie Rhodes Past medical history: History of cirrhosis, chronic alcohol use, hepatic encephalopathy, polysubstance use, hyperammonemia, thrombocytopenia This is a 54-year-old female. This patient is not known to this provider previously. The patient presents to the ER today with a complaint of nontraumatic epigastric and right upper quadrant pain, nausea, vomiting, coughing up blood. There is no hematemesis. Symptoms have been going on for approximately the past 12-24 hours. Pain is aching, throbbing and constant, does not radiate anywhere, and reportedly does not have exacerbating or relieving factors. Patient reports that she saw her core finisher yesterday, and had outpatient screening laboratory studies drawn. Apparently, the patient's insurance company is no longer improving use of xifixan, and her core finisher nicki laboratory studies and noted to appeal this. The patient states she's been off of this medicine for the past couple days. She denies headache, neck pain, central chest pain, has no shortness of breath, has no urinary symptoms, and denies bright red blood per rectum or black tarry stools. She reports that she's never had pain like this before. She denies urinary symptoms. Patient states she does not feel like her hepatic en cephalopathy is "acting up." -: Gradual Location: abdomen Radiation: non-radiation Quality: other Consistency: other Improves with: other Worsens with: other - Related Data Home Medications Medication Instructions Recorded Confirmed Last Taken FLUoxetine [PROzac] 20 mg PO BID 02/19/18 04/22/18 Unknown Omeprazole 20 mg PO QDAY 02/19/18 04/22/18 Unknown Ondansetron [Zofran Odt] 4 mg PO Q4H PRN 02/19/18 04/22/18 Unknown Previous Rx's Medication Instructions Recorded Last Taken Type Furosemide [Lasix TAB] 40 mg PO QDAY #30 tablet 02/21/18 Unknown Rx Lactulose [Cephulac] 30 gm PO BID 30 Days oral.liqd 02/21/18 Unknown Rx Nadolol [Corgard] 10 mg PO QDAY #30 tablet 02/21/18 Unknown Rx Potassium Chloride [K-Dur] 10 meq PO QDAY #14 tablet 02/21/18 Unknown Rx Rifaximin [Xifaxan] 550 mg PO BID #60 tablet 02/21/18 Unknown Rx Allergies Allergy/AdvReac Type Severity Reaction Status Date / Time Sulfa (Sulfonamide AdvReac Rash Verified 05/20/14 14:37 Antibiotics) ED Review of Systems Constitutional: malaise, weakness. denies: fever Eyes: denies: eye discharge ENT: denies: epistaxis Respiratory: cough. denies: wheezing Cardiovascular: denies: syncope Gastrointestinal: abdominal pain, nausea, vomiting. denies: melena, sherri tochezia Genitourinary: denies: dysuria Musculoskeletal: denies: back pain Skin: denies: lesions Neurological: weakness Psychiatric: anxiety ED Past Medical Hx - Past Medical History Previous Medical History?: Yes Hx Hypertension: Yes (PT DENIES) Hx Heart Attack/AMI: No Hx Congestive Heart Failure: No Hx Diabetes: No Hx Liver Disease: Yes Hx Psychiatric Treatment: Yes (DEPRESSION, ETOH abuse) Hx Asthma: No Hx COPD: No Additional medical history: GI bleeding, cirrosis, ulcer - Surgical History Past Surgical History?: Yes Additional Surgical History: Bladder tacted - Social History Smoking Status: Never Smoker Substance Use Type: Alcohol - Medications Home Medications: Home Medications Medication Instructions Recorded Confirmed Last Taken Type FLUoxetine [PROzac] 20 mg PO BID 02/19/18 04/22/18 Unknown History Omeprazole 20 mg PO QDAY 02/19/18 04/22/18 Unknown History Ondansetron [Zofran Odt] 4 mg PO Q4H PRN 02/19/18 04/22/18 Unknown History Furosemide [Lasix TAB] 40 mg PO QDAY #30 tablet 02/21/18 04/22/18 Unknown Rx Lactulose [Cephulac] 30 gm PO BID 30 Days oral.liqd 02/21/18 04/22/18 Unknown Rx Nadolol [Corgard] 10 mg PO QDAY #30 tablet 02/21/18 04/22/18 Unknown Rx Potassium Chloride [K-Dur] 10 meq PO QDAY #14 tablet 02/21/18 04/22/18 Unknown Rx Rifaximin [Xifaxan] 550 mg PO BID #60 tablet 02/21/18 04/22/18 Unknown Rx ED Physical Exam - General Limitations: No Limitations General appearance: alert, in no apparent distress - Head Head exam: Present: atraumatic, normocephalic - Eye Eye exam: Present: normal appearance, EOMI. Absent: nystagmus - ENT ENT exam: Present: normal exam, normal orophraynx, mucous membranes moist, normal external ear exam - Neck Neck exam: Present: normal inspection, full ROM. Absent: tenderness, meningismus - Respiratory Respiratory exam: Present: normal lung sounds bilaterally. Absent: respiratory distress, wheezes, rales, rhonchi, stridor, chest wall tenderness, accessory muscle use, decreased breath sounds - Cardiovascular Cardiovascular Exam: Present: regular rate, normal rhythm, normal heart sounds. Absent: bradycardia, tachycardia, irregular rhythm, systolic murmur, diastolic murmur, rubs, gallop - GI/Abdominal GI/Abdominal exam: Present: soft. Absent: distended, tenderness, guarding, rebound, rigid, pulsatile mass - Extremities Exam Extremities exam: Present: normal inspection, full ROM, pedal edema (1+ edema), other (2+ pulses noted in the bilateral upper, lower extremities. Compartments soft. No long bony tenderness. The pelvis is stable.). Absent: joint swelling, calf tenderness - Back Exam Back exam: Present: normal inspection, full ROM. Absent: tenderness, CVA tenderness (R), CVA tenderness (L), paraspinal tenderness, vertebral tenderness - Neurological Exam Neurological exam: Present: alert, oriented X3, other (Extraocular movements intact. Tongue midline. No facial droop. Facial sensation intact to light touch in the V1, V2, V3 distribution bilaterally. 5 and 5 strength in 4 extremities.. Sensation is intact to light touch in 4 extremities.). Absent: motor sensory deficit - Psychiatric Psychiatric exam: Present: anxious - Skin Skin exam: Present: warm, dry, intact, normal color. Absent: rash ED Course - Reevaluation(s) Reevaluation #1: 03/15/19 04:15 Differential diagnosis, including but not limited to: GERD, gastritis, hiatal hernia, pneumonia, pancreatitis, acute coronary syndrome, renal colic, biliary colic, pulmonary embolism Assessment and plan: 54-year-old female with epigastric and right upper quadrant pain. The patient is somewhat hypotensive, and somewhat hypoxic. Upon my initial evaluation, she is resting comfortably in her stretcher, however, during the history and physical, becomes quite animated in quite distress. She is nontender on my examination. We will give her IV fluids, obtain screening laboratory studies, x-ray of the chest, and CT scan of the abdomen and pelvis, plus minus CT scan of the chest, depending on d-dimer. Clinically she is quite alert and oriented, she is not encephalopathic. Her history and physical at this time are not consistent with hepatic encephalopathy. Reevaluation #2: 03/15/19 05:32 Patient resting comfortably, and in no acute distress. Care will be transferred to the oncoming ER physician, Dr. Arie Antonio, to follow-up on urinalysis, repeat troponin, repeat EKG, CT scan of the chest, abdomen, pelvis. ED Medical Decision Making - Lab Data Result diagrams: 03/15/19 03:42 03/15/19 03:42 Vital Signs 03/15/19 03:18 Temperature 97.7 F Pulse Rate 67 Respiratory 15 Rate Blood Pressure 90/41 Blood Pressure 90/41 [Left] O2 Sat by Pulse 92 Oximetry Vital Signs 03/15/19 03/15/19 03/15/19 03:18 03:30 04:00 Temperature 97.7 F Pulse Rate 67 65 63 Respiratory 15 11 L 12 Rate Blood Pressure 90/41 105/61 109/60 Blood Pressure 90/41 [Left] O2 Sat by Pulse 92 93 98 Oximetry Lab Results 03/15/19 03/15/19 03/15/19 Range/Units 03:42 03:42 03:42 WBC 7.1 (4.5-11.0) K/mm3 RBC 3.88 (3.65-5.03) M/mm3 Hgb 12.8 (10.1-14.3) gm/dl Hct 37.5 (30.3-42.9) % MCV 97 (79-97) fl MCH 33 H (28-32) pg MCHC 34 (30-34) % RDW 18.7 H (13.2-15.2) % Plt Count 84 L (140-440) K/mm3 Lymph % (Auto) 15.6 (13.4-35.0) % [place] % (Auto) 11.4 H (0.0-7.3) % Eos % (Auto) 1.6 (0.0-4.3) % Baso % (Auto) 0.5 (0.0-1.8) % Lymph # 1.1 L (1.2-5.4) K/mm3 [place] # 0.8 (0.0-0.8) K/mm3 Eos # 0.1 (0.0-0.4) K/mm3 Baso # 0.0 (0.0-0.1) K/mm3 Seg Neutrophils % 70.9 H (40.0-70.0) % Seg Neutrophils # 5.1 (1.8-7.7) K/mm3 PT 18.5 H (12.2-14.9) Sec. INR 1.58 H (0.87-1.13) D-Dimer 675.38 H (0-234) ng/mlDDU Sodium 142 (137-145) mmol/L Potassium 4.5 (3.6-5.0) mmol/L Chloride 104.4 (98-107) mmol/L Carbon Dioxide 28 (22-30) mmol/L Anion Gap 14 mmol/L BUN 13 (7-17) mg/dL Creatinine 0.8 (0.7-1.2) mg/dL Estimated GFR > 60 ml/min BUN/Creatinine Ratio 16 % Glucose 108 H (65-100) mg/dL Calcium 9.0 (8.4-10.2) mg/dL Magnesium (1.7-2.3) mg/dL Total Bilirubin 1.70 H (0.1-1.2) mg/dL AST 77 H (5-40) units/L ALT 49 (7-56) units/L Alkaline Phosphatase 143 H (35-129) units/L Ammonia (25-60) umol/L Total Creatine Kinase (30-135) units/L Troponin T (0.00-0.029) ng/mL Total Protein 6.7 (6.3-8.2) g/dL Albumin 2.9 L (3.9-5) g/dL Albumin/Globulin Ratio 0.8 % Lipase 59 (13-60) units/L 03/15/19 03/15/19 Range/Units 03:42 03:42 WBC (4.5-11.0) K/mm3 RBC (3.65-5.03) M/mm3 Hgb (10.1-14.3) gm/dl Hct (30.3-42.9) % MCV (79-97) fl MCH (28-32) pg MCHC (30-34) % RDW (13.2-15.2) % Plt Count (140-440) K/mm3 Lymph % (Auto) (13.4-35.0) % [place] % (Auto) (0.0-7.3) % Eos % (Auto) (0.0-4.3) % Baso % (Auto) (0.0-1.8) % Lymph # (1.2-5.4) K/mm3 [place] # (0.0-0.8) K/mm3 Eos # (0.0-0.4) K/mm3 Baso # (0.0-0.1) K/mm3 Seg Neutrophils % (40.0-70.0) % Seg Neutrophils # (1.8-7.7) K/mm3 PT (12.2-14.9) Sec. INR (0.87-1.13) D-Dimer (0-234) ng/mlDDU Sodium (137-145) mmol/L Potassium (3.6-5.0) mmol/L Chloride (98-107) mmol/L Carbon Dioxide (22-30) mmol/L Anion Gap mmol/L BUN (7-17) mg/dL Creatinine (0.7-1.2) mg/dL Estimated GFR ml/min BUN/Creatinine Ratio % Glucose (65-100) mg/dL Calcium (8.4-10.2) mg/dL Magnesium 2.10 (1.7-2.3) mg/dL Total Bilirubin (0.1-1.2) mg/dL AST (5-40) units/L ALT (7-56) units/L Alkaline Phosphatase (35-129) units/L Ammonia 49.0 (25-60) umol/L Total Creatine Kinase 149 H (30-135) units/L Troponin T < 0.010 (0.00-0.029) ng/mL Total Protein (6.3-8.2) g/dL Albumin (3.9-5) g/dL Albumin/Globulin Ratio % Lipase (13-60) units/L - EKG Data -: EKG Interpreted by Me EKG shows normal: sinus rhythm Rate: normal - EKG Data When compared to previous EKG there are: no significant change Interpretation: unchanged when compared t 03/15/19 04:14 This is a normal sinus rhythm, bradycardic, 55 bpm, QTC 447 ms, T wave inversion V2, abnormal EKG, unchanged from prior EKG from March 2018, the EKG is not consistent with ST elevation myocardial infarction. - Radiology Data Radiology results: pending, report reviewed, image reviewed X-ray the chest is negative for acute disease ED Disposition Clinical Impression: Cholelithiasis, Biliary colic, History of cirrhosis of liver, Acute abdominal pain Disposition: OP ADMIT IP TO THIS HOSP Condition: Stable Instructions: Abdominal Pain (ED) Referrals: SHARITA ROBLEDO MD [Primary Care Provider] - 3-5 Days <SANIA ANTONIO - Last Filed: 03/15/19 08:26> ED Review of Systems ROS: Stated complaint: ABD PAIN, N/V Other details as noted in HPI ED Course Vital Signs 03/15/19 03/15/19 03/15/19 03:18 03:30 04:00 Temperature 97.7 F Pulse Rate 67 65 63 Respiratory 15 11 L 12 Rate Blood Pressure 90/41 105/61 109/60 Blood Pressure 90/41 [Left] O2 Sat by Pulse 92 93 98 Oximetry 03/15/19 03/15/19 03/15/19 04:16 04:30 05:37 Temperature Pulse Rate 65 66 71 Respiratory 13 12 13 Rate Blood Pressure 105/61 94/47 109/60 Blood Pressure [Left] O2 Sat by Pulse 98 99 Oximetry 03/15/19 03/15/19 03/15/19 05:46 06:00 06:30 Temperature Pulse Rate 68 72 69 Respiratory 14 15 13 Rate Blood Pressure 110/63 98/50 104/53 Blood Pressure [Left] O2 Sat by Pulse 99 97 99 Oximetry ED Medical Decision Making - Lab Data Result diagrams: 03/15/19 03:42 08/17/19 03:42 - Medical Decision Making Mrs. Thorpe presents with one day of RUQ pain, CT A/P reveals cholelithiasis with gallbladder wall thickening, possible acute vs chronic cholecystitis. Dr. Isaac general surgery consult GI specialist Dr. Marquez consulted admitted to hospitalist service Critical care attestation.: If time is entered above; I have spent that time in minutes in the direct care of this critically ill patient, excluding procedure time. ED Disposition Is pt being admited?: Yes Does the pt Need Aspirin: No
--- NOTE | 2019-03-15 04:04 | XRay Report ---
CHEST 1 VIEW 3:43 AM INDICATION / CLINICAL INFORMATION: Right chest pain with nausea and vomiting. COMPARISON: 09/17/2017. FINDINGS: SUPPORT DEVICES: None. HEART / MEDIASTINUM: The heart size and pulmonary vasculature are normal. The aorta is normal in saniya bright. LUNGS / PLEURA: No significant pulmonary or pleural abnormality. No pneumothorax. ADDITIONAL FINDINGS: No significant additional findings. IMPRESSION: No acute findings. Signer Name: Marques Cohen MD Signed: 03/15/2019 3:59 AM Workstation Name: [id number]
[2019-03-15 04:15] LABS: Basophils % (Auto) 0.5 % (0.0-1.8); Eosinophils # (Auto) 0.1 K/mm3 (0.0-0.4); Eosinophils % (Auto) 1.6 % (0.0-4.3); Hematocrit 37.5 % (30.3-42.9); Hemoglobin 12.8 gm/dl (10.1-14.3); Lymphocytes # (Auto) 1.1 K/mm3 (1.2-5.4); Lymphocytes % (Auto) 15.6 % (13.4-35.0); Mean Corpuscular HGB Conc 34 % (30-34); Mean Corpuscular Volume 97 fl (79-97); Monocytes # (Auto) 0.8 K/mm3 (0.0-0.8); Monocytes % (Auto) 11.4 % (0.0-7.3); Red Blood Count 3.88 M/mm3 (3.65-5.03); Red Cell Distribution Width 18.7 % (13.2-15.2)
[2019-03-15 04:22] LABS: Alanine Aminotransferase 49 units/L (7-56); Albumin 2.9 g/dL (3.9-5); BUN/Creatinine Ratio 16; Blood Urea Nitrogen 13 mg/dL (7-17); Hemolysis Index 25
[2019-03-15 04:23] LABS: INR 1.58 (0.87-1.13)
[2019-03-15 04:32] LABS: Platelet Count 84 K/mm3 (140-440)
--- NOTE | 2019-03-15 06:54 | Cat Scan Report ---
CT abdomen pelvis w con INDICATION / CLINICAL INFORMATION: Right upper quadrant pain; nausea and vomiting. TECHNIQUE: The patient received 100 cc Omnipaque [address] scans at this location are performed using CT dose reduction for ALARA by means of automated exposure control. COMPARISON: 02/19/2018. FINDINGS: ABDOMEN: The liver has a cirrhotic contour. There are multiple esophageal varices. The spleen is not enlarged. There is trace ascites. No focal liver lesion is seen. There are multiple calcified stones in the gallbladder. The gallbladder is mildly distended and demon strates mild diffuse wall thickening. The bile ducts, pancreas, adrenal glands and left kidney are no rmal. There is a 3.6 cm simple cyst in the upper pole of the right kidney. The bowel is unremarkable. No adenopathy is seen. The lung bases are clear. PELVIS: The distal ureters and urinary bladder are normal. The uterus and ovaries are unremarkable. A normal appendix is present and there is no evidence of diverticulitis. There is a trace amount of fr ee fluid in the cul-de-sac. I do not identify a hernia. There is mild spondylosis. IMPRESSION: 1. Cholelithiasis. The gallbladder is mildly distended and demonstrates mild diffuse wall thickening. The findings could be related to acute or chronic cholecystitis. Depending on clinical findings, hep atobiliary scintigraphy may be helpful in further evaluation. 2. Evidence of hepatic cirrhosis. There are associated esophageal varices and there is trace ascites. Signer Name: Marques Cohen MD Signed: 03/15/2019 6:50 AM Workstation Name: [id number]
--- NOTE | 2019-03-15 07:02 | Cat Scan Report ---
CT angiography of the chest with intravenous contrast and multiplanar MIP reconstructions INDICATION / CLINICAL INFORMATION: Cough and hemoptysis. Right upper quadrant pain TECHNIQUE: Axial CT images were obtained after injection of 100 cc Omnipaque 350 IV contrast using CTA protocol. 3 plane MIP / 3D reconstructions were produced. All CT scans at this location are performed using CT dose reduction for ALARA by means of automated exposure control. COMPARISON: None available. FINDINGS: There is good opacification of the pulmonary arterial system bilaterally without intraluminal filling defect to suggest acute PTE. The thoracic aorta is normal in caliber without dissection. The visuali zed coronary arteries are unremarkable. The tracheobronchial tree is normal. The lung parenchyma is clear. There is no evidence of adenopathy or effusion. No acute osseous abnormality is identified. IMPRESSION: No evidence of acute PTE. Signer Name: Marques Cohen MD Signed: 03/15/2019 6:57 AM Workstation Name: [id number]
[2019-03-15] MEDS ORDERED: MORPHINE ONE (10:11)
[2019-03-15 10:36] LABS: Bilirubin,Urine NEG (Negative); Blood,Urine NEG (Negative); Color,Urine Yellow (Yellow); Mucus,Urine FEW /HPF; Protein,Urine <15 mg/dL mg/dL (Negative)
[2019-03-15] MEDS ORDERED: REGLAN IV PRN (11:50)
[2019-03-15] MEDS ORDERED: TYLENOL PO PRN (11:50)
[2019-03-15] MEDS ORDERED: MILK OF MAGNESIA PO PRN (11:50)
[2019-03-15] MEDS ORDERED: MORPHINE IV PRN (11:50)
[2019-03-15] MEDS ORDERED: NARCAN 0.4 MG/1 ML IV PRN (11:50)
[2019-03-15] MEDS ORDERED: SODIUM CHLORIDE FLUSH SYRINGE 10 ML IV PRN (11:50)
[2019-03-15] MEDS ORDERED: ZOFRAN IV PRN (11:50)
[2019-03-15] MEDS ORDERED: ZOFRAN ODT PO PRN (11:53)
[2019-03-15] MEDS ORDERED: CEPHULAC PO SCH (12:00)
[2019-03-15] MEDS ORDERED: PROzac PO SCH (12:00)
[2019-03-15] MEDS ORDERED: CORGARD PO SCH ×2 (13:00→15:14)
[2019-03-15] MEDS: NACL 0.9% 1000 ML 1,000 ML IV SCH ×2 (13:20→23:39)
--- NOTE | 2019-03-15 13:28 | Consultation ---
History of Present Illness Consult date: 03/15/19 Reason for consult: gallstones Chief complaint: abdominal pain - History of present illness History of present illness: 54 yo F with hx of Hep C, alcoholic cirrhosis, varices present to hospital with 1 day hx of RUQ abdominal pain, sharp, intermittent. She states she ate a little bit more than she usually does for dinner and started to have the pain several hours later. She did have one episode of nausea/vomiting. The pain is now resolved. She feels hungry. She states she had an additional episode of emesis several days ago as well not related to food. No f/c, cp, sob. She states she had to stop taking xifaxan 1 week ago due to coverage issues. Past History Past Medical History: hepatitis, liver disease, other (cirrhosis, varices) Past Surgical History: Other (Dx laparoscopy. Removal of scar tissue around fallopian tubes) Social history: no significant social history Family history: no significant family history Medications and Allergies Allergies Allergy/AdvReac Type Severity Reaction Status Date / Time Sulfa (Sulfonamide AdvReac Rash Verified 05/20/14 14:37 Antibiotics) Home Medications Medication Instructions Recorded Confirmed Last Taken Type FLUoxetine [PROzac] 20 mg PO BID 02/19/18 03/15/19 Unknown History Omeprazole 20 mg PO QDAY 02/19/18 03/15/19 Unknown History Ondansetron [Zofran Odt] 4 mg PO Q4H PRN 02/19/18 03/15/19 Unknown History Furosemide [Lasix TAB] 40 mg PO QDAY #30 tablet 02/21/18 03/15/19 Unknown Rx Lactulose [Cephulac] 30 gm PO BID 30 Days oral.liqd 02/21/18 03/15/19 Unknown Rx Nadolol [Corgard] 10 mg PO QDAY #30 tablet 02/21/18 03/15/19 Unknown Rx Potassium Chloride [K-Dur] 10 meq PO QDAY #14 tablet 02/21/18 03/15/19 Unknown Rx Rifaximin [Xifaxan] 550 mg PO BID #60 tablet 02/21/18 03/15/19 03/04/19 08:00 Rx Active Meds: Active Medications Acetaminophen (Tylenol) 650 mg PO Q4H PRN PRN Reason: Pain MILD(1-3)/Fever >100.5/ROCHA Enoxaparin Sodium (Lovenox) 40 mg SUB-Q QDAY DONN Famotidine (Pepcid) 20 mg IV BID DONN Fluoxetine HCl (Prozac) 20 mg PO BID [facility] Sodium Chloride (Nacl 0.9% 1000 Ml) 1,000 mls @ 100 mls/hr IV DIRECT DONN Lactulose (Cephulac) 30 gm PO BID DONN Magnesium Hydroxide (Milk Of Magnesia) 30 ml PO Q4H PRN PRN Reason: Constipation Metoclopramide HCl (Reglan) 10 mg IV Q6H PRN PRN Reason: Nausea And Vomiting Morphine Sulfate (Morphine) 2 mg IV Q4H PRN PRN Reason: Pain, Moderate (4-6) Nadolol (Corgard) 10 mg PO QDAY DONN Naloxone HCl (Narcan 0.4 Mg/1 Ml) 0.1 mg IV Q2MIN PRN PRN Reason: Res Rate </= 8 or 02 SAT < 92% Ondansetron HCl (Zofran) 4 mg IV Q8H PRN PRN Reason: Nausea And Vomiting Ondansetron HCl (Zofran Odt) 4 mg PO Q4H PRN PRN Reason: Nausea Senna (Senokot) 8.6 mg PO Q12HR [facility] Sodium Chloride (Sodium Chloride Flush Syringe 10 Ml) 10 ml IV BID DONN Sodium Chloride (Sodium Chloride Flush Syringe 10 Ml) 10 ml IV PRN PRN PRN Reason: LINE FLUSH Review of Systems All systems: negative (10 pt ROS performed and negative except for that listed in HPI) Exam Vital Signs Temp Pulse Resp BP Pulse Ox 97.7 F 67 15 90/41 92 03/15/19 03:18 03/15/19 03:18 03/15/19 03:18 03/15/19 03:18 03/15/19 03:18 Narrative exam: Gen: AAOx3. NAD ENt: no scleral icterus or conjunctival pallor Cv; s1, S2+ resp; even and unlabored Abd: soft, NT, ND. no r/r/g Ext: no c/c/e Results - Labs 03/15/19 03:42 03/15/19 03:42 Abnormal lab results 03/15/19 03/15/19 03/15/19 Range/Units 03:42 03:42 03:42 MCH 33 H (28-32) pg RDW 18.7 H (13.2-15.2) % Plt Count 84 L (140-440) K/mm3 [place] % (Auto) 11.4 H (0.0-7.3) % Lymph # 1.1 L (1.2-5.4) K/mm3 Seg Neutrophils % 70.9 H (40.0-70.0) % PT 18.5 H (12.2-14.9) Sec. INR 1.58 H (0.87-1.13) D-Dimer 675.38 H (0-234) ng/mlDDU Glucose 108 H (65-100) mg/dL Total Bilirubin 1.70 H (0.1-1.2) mg/dL AST 77 H (5-40) units/L Alkaline Phosphatase 143 H (35-129) units/L Total Creatine Kinase (30-135) units/L Albumin 2.9 L (3.9-5) g/dL Ur Specific [place] (1.003-1.030) 03/15/19 03/15/19 Range/Units 03:42 10:13 MCH (28-32) pg RDW (13.2-15.2) % Plt Count (140-440) K/mm3 [place] % (Auto) (0.0-7.3) % Lymph # (1.2-5.4) K/mm3 Seg Neutrophils % (40.0-70.0) % PT (12.2-14.9) Sec. INR (0.87-1.13) D-Dimer (0-234) ng/mlDDU Glucose (65-100) mg/dL Total Bilirubin (0.1-1.2) mg/dL AST (5-40) units/L Alkaline Phosphatase (35-129) units/L Total Creatine Kinase 149 H (30-135) units/L Albumin (3.9-5) g/dL Ur Specific [place] 1.053 H (1.003-1.030) Diabetes panel 03/15/19 Range/Units 03:42 Sodium 142 (137-145) mmol/L Potassium 4.5 (3.6-5.0) mmol/L Chloride 104.4 (98-107) mmol/L Carbon Dioxide 28 (22-30) mmol/L BUN 13 (7-17) mg/dL Creatinine 0.8 (0.7-1.2) mg/dL Glucose 108 H (65-100) mg/dL Calcium 9.0 (8.4-10.2) mg/dL AST 77 H (5-40) units/L ALT 49 (7-56) units/L Alkaline Phosphatase 143 H (35-129) units/L Total Protein 6.7 (6.3-8.2) g/dL Albumin 2.9 L (3.9-5) g/dL Calcium panel 03/15/19 Range/Units 03:42 Calcium 9.0 (8.4-10.2) mg/dL Albumin 2.9 L (3.9-5) g/dL Pituitary panel 03/15/19 Range/Units 03:42 Sodium 142 (137-145) mmol/L Potassium 4.5 (3.6-5.0) mmol/L Chloride 104.4 (98-107) mmol/L Carbon Dioxide 28 (22-30) mmol/L BUN 13 (7-17) mg/dL Creatinine 0.8 (0.7-1.2) mg/dL Glucose 108 H (65-100) mg/dL Calcium 9.0 (8.4-10.2) mg/dL Adrenal panel 03/15/19 Range/Units 03:42 Sodium 142 (137-145) mmol/L Potassium 4.5 (3.6-5.0) mmol/L Chloride 104.4 (98-107) mmol/L Carbon Dioxide 28 (22-30) mmol/L BUN 13 (7-17) mg/dL Creatinine 0.8 (0.7-1.2) mg/dL Glucose 108 H (65-100) mg/dL Calcium 9.0 (8.4-10.2) mg/dL Total Bilirubin 1.70 H (0.1-1.2) mg/dL AST 77 H (5-40) units/L ALT 49 (7-56) units/L Alkaline Phosphatase 143 H (35-129) units/L Total Protein 6.7 (6.3-8.2) g/dL Albumin 2.9 L (3.9-5) g/dL - Imaging CT scan - abdomen: report reviewed, image reviewed CT scan - pelvis: report reviewed, image reviewed Assessment and Plan 54 yo F with 1. RUQ pain 2. cholelithiasis 3. hep C and cirrhosis of the liver Plan: Patient stable without pain at this time. Feels hungry. 1. start full liquid diet 2. prn pain control 3. IVF 4. Gi consult pending 5. recommend HIDA scan - no nuc med tech here on weekends (confirmed with nursing gas distribution supervisor) and this is not an urgent test. 6. on abx Thank you, please call with questions.
[2019-03-15] MEDS: LOVENOX SUB-Q SCH (14:06)
[2019-03-15] MEDS: PERCOCET 5/325 PO PRN ×2 (14:51→20:56)
--- NOTE | 2019-03-15 14:51 | Gastroenterology Consultation ---
History of Present Illness - Reason for Consult Consult date: 03/15/19 RUQ abdominal pain Requesting physician: WALTER SELBY - History of Present Illness The patient is a 54 yo wf with h/o cirrhosis (presumed alcohol with last intake over 2 years ago) who presents with new onset RUQ abd pain. Pt reports new onset pain starting last night in RUQ abdomen. This was associated with n/v. First time she has experienced these symptoms. Symptoms improved with pain meds following admission but having mild recurrent pain at the time of exam. No fevers/chills, jaundice. CT scan with findings of distended/mildly inflamed GB raising suspicion for possible cholecystitis. no biliary dilatation Past History Past Medical History: hepatitis, liver disease, other (cirrhosis, varices) Past Surgical History: Other (Dx laparoscopy. Removal of scar tissue around fallopian tubes) Social history: no significant social history Family history: no significant family history Medications and Allergies Allergies Allergy/AdvReac Type Severity Reaction Status Date / Time Sulfa (Sulfonamide AdvReac Rash Verified 05/20/14 14:37 Antibiotics) Home Medications Medication Instructions Recorded Confirmed Last Taken Type FLUoxetine [PROzac] 20 mg PO BID 02/19/18 03/15/19 Unknown History Omeprazole 20 mg PO QDAY 02/19/18 03/15/19 Unknown History Ondansetron [Zofran Odt] 4 mg PO Q4H PRN 02/19/18 03/15/19 Unknown History Furosemide [Lasix TAB] 40 mg PO QDAY #30 tablet 02/21/18 03/15/19 Unknown Rx Lactulose [Cephulac] 30 gm PO BID 30 Days oral.liqd 02/21/18 03/15/19 Unknown Rx Nadolol [Corgard] 10 mg PO QDAY #30 tablet 02/21/18 03/15/19 Unknown Rx Potassium Chloride [K-Dur] 10 meq PO QDAY #14 tablet 02/21/18 03/15/19 Unknown Rx Rifaximin [Xifaxan] 550 mg PO BID #60 tablet 02/21/18 03/15/19 03/04/19 08:00 Rx oxyCODONE /ACETAMINOPHEN [Percocet 1 tab PO BID PRN 03/15/19 03/15/19 Unknown History 5/325] Active Meds: Active Medications Acetaminophen (Tylenol) 650 mg PO Q4H PRN PRN Reason: Pain MILD(1-3)/Fever >100.5/ROCHA Enoxaparin Sodium (Lovenox) 40 mg SUB-Q QDAY [facility] Last Admin: 03/15/19 14:06 Dose: 40 mg Documented by: Famotidine (Pepcid) 20 mg IV BID [facility] Fluoxetine HCl (Prozac) 20 mg PO BID [facility] Sodium Chloride (Nacl 0.9% 1000 Ml) 1,000 mls @ 100 mls/hr IV DIRECT [facility] Last Admin: 03/15/19 13:20 Dose: 100 mls/hr Documented by: Lactulose (Cephulac) 30 gm PO BID [facility] Last Admin: 03/15/19 14:05 Dose: 30 gm Documented by: Magnesium Hydroxide (Milk Of Magnesia) 30 ml PO Q4H PRN PRN Reason: Constipation Metoclopramide HCl (Reglan) 10 mg IV Q6H PRN PRN Reason: Nausea And Vomiting Morphine Sulfate (Morphine) 2 mg IV Q4H PRN PRN Reason: Pain, Moderate (4-6) Nadolol (Corgard) 10 mg PO QDAY [facility] Naloxone HCl (Narcan 0.4 Mg/1 Ml) 0.1 mg IV Q2MIN PRN PRN Reason: Res Rate </= 8 or 02 SAT < 92% Ondansetron HCl (Zofran) 4 mg IV Q8H PRN PRN Reason: Nausea And Vomiting Ondansetron HCl (Zofran Odt) 4 mg PO Q4H PRN PRN Reason: Nausea Oxycodone/Acetaminophen (Percocet 5/325) 1 tab PO BID PRN PRN Reason: Pain, Moderate (4-6) Senna (Senokot) 8.6 mg PO Q12HR [facility] Sodium Chloride (Sodium Chloride Flush Syringe 10 Ml) 10 ml IV BID [facility] Sodium Chloride (Sodium Chloride Flush Syringe 10 Ml) 10 ml IV PRN PRN PRN Reason: LINE FLUSH Reviewed/updated patient's home and current medications Review of Systems - Review of Systems All systems: negative (per HPI) Exam - Constitutional Vital Signs: Temp Pulse Resp BP Pulse Ox 97.7 F 63 18 105/49 100 03/15/19 03:18 03/15/19 10:28 03/15/19 10:28 03/15/19 10:28 03/15/19 10:28 General appearance: no acute distress - EENT Eyes: PERRL, EOM intact - Neck Neck: supple, normal ROM - Respiratory Respiratory effort: normal Respiratory: bilateral: CTA - Cardiovascular Rhythm: regular Heart Sounds: Present: S1 & S2 - Gastrointestinal General gastrointestinal: Present: soft, tender (mild RUQ ttp), non-distended - Integumentary Integumentary: Present: clear, warm - Neurologic Neurological: alert and oriented x3 - Psychiatric Psychiatric: appropriate mood/affect - Labs CBC & Chem 7: 03/15/19 03:42 03/15/19 03:42 Lab Results: Laboratory Results - last 24 hr 03/15/19 03/15/19 03/15/19 03:42 03:42 03:42 WBC 7.1 RBC 3.88 Hgb 12.8 Hct 37.5 MCV 97 MCH 33 H MCHC 34 RDW 18.7 H Plt Count 84 L Lymph % (Auto) 15.6 Christian % (Auto) 11.4 H Eos % (Auto) 1.6 Baso % (Auto) 0.5 Lymph # 1.1 L Christian # 0.8 Eos # 0.1 Baso # 0.0 Seg Neutrophils % 70.9 H Seg Neutrophils # 5.1 PT 18.5 H INR 1.58 H D-Dimer 675.38 H Sodium 142 Potassium 4.5 Chloride 104.4 Carbon Dioxide 28 Anion Gap 14 BUN 13 Creatinine 0.8 Estimated GFR > 60 BUN/Creatinine Ratio 16 Glucose 108 H Calcium 9.0 Magnesium Total Bilirubin 1.70 H AST 77 H ALT 49 Alkaline Phosphatase 143 H Ammonia Total Creatine Kinase Troponin T Total Protein 6.7 Albumin 2.9 L Albumin/Globulin Ratio 0.8 Lipase 59 Urine Color Urine Turbidity Urine pH Ur Specific [place] Urine Protein Urine Glucose (UA) Urine Ketones Urine Blood Urine Nitrite Urine Bilirubin Urine Urobilinogen Ur Leukocyte Esterase Urine WBC (Auto) Urine RBC (Auto) U Epithel Cells (Auto) Urine Mucus 03/15/19 03/15/19 03/15/19 03:42 03:42 07:36 WBC RBC Hgb Hct MCV MCH MCHC RDW Plt Count Lymph % (Auto) Christian % (Auto) Eos % (Auto) Baso % (Auto) Lymph # Christian # Eos # Baso # Seg Neutrophils % Seg Neutrophils # PT INR D-Dimer Sodium Potassium Chloride Carbon Dioxide Anion Gap BUN Creatinine Estimated GFR BUN/Creatinine Ratio Glucose Calcium Magnesium 2.10 Total Bilirubin AST ALT Alkaline Phosphatase Ammonia 49.0 Total Creatine Kinase 149 H Troponin T < 0.010 < 0.010 Total Protein Albumin Albumin/Globulin Ratio Lipase Urine Color Urine Turbidity Urine pH Ur Specific [place] Urine Protein Urine Glucose (UA) Urine Ketones Urine Blood Urine Nitrite Urine Bilirubin Urine Urobilinogen Ur Leukocyte Esterase Urine WBC (Auto) Urine RBC (Auto) U Epithel Cells (Auto) Urine Mucus 03/15/19 03/15/19 09:39 10:13 WBC RBC Hgb Hct MCV MCH MCHC RDW Plt Count Lymph % (Auto) Christian % (Auto) Eos % (Auto) Baso % (Auto) Lymph # Christian # Eos # Baso # Seg Neutrophils % Seg Neutrophils # PT INR D-Dimer Sodium Potassium Chloride Carbon Dioxide Anion Gap BUN Creatinine Estimated GFR BUN/Creatinine Ratio Glucose Calcium Magnesium Total Bilirubin AST ALT Alkaline Phosphatase Ammonia Total Creatine Kinase Troponin T < 0.010 Total Protein Albumin Albumin/Globulin Ratio Lipase Urine Color Yellow Urine Turbidity Clear Urine pH 7.0 Ur Specific [place] 1.053 H Urine Protein <15 mg/dl Urine Glucose (UA) Neg Urine Ketones Neg Urine Blood Neg Urine Nitrite Neg Urine Bilirubin Neg Urine Urobilinogen 2.0 Ur Leukocyte Esterase Tr Urine WBC (Auto) 2.0 Urine RBC (Auto) 8.0 U Epithel Cells (Auto) 1.0 Urine Mucus Few - Imaging CT Scan: report reviewed Assessment and Plan 1. RUQ abdominal pain - ? cholecystitis on imaging; afebrile and normal wbc count. cont empiric abx. trend labs. surgery following. Awaiting HIDA scan for further evaluation. Given history of decompensated cirrhosis, would be at least moderate risk for surgery (may need to discuss with liver center if symptoms persists and HIDA scan consistent with acute cholecystitis) 2. Cirrhosis - h/o HE in the past; she had been on xifaxin which was controlling her sx's well but has been off of medication x 1 week. no overt HE, GI bleeding or ascites on exam. will restart xifaxin
[2019-03-15] MEDS: PEPCID IV SCH ×2 (14:53→21:05)
--- NOTE | 2019-03-15 15:22 | History and Physical Report ---
History of Present Illness Date of examination: 03/15/19 Date of admission: 03/15/19 08:27 Chief complaint: abdominal pain History of present illness: Patient is a 54-year-old female with a history of cirrhosis, hypertension, polysubstance abuse. Presents with the chief complaint of right upper quadrant pain associated with nausea vomiting 24 hours. Patient states she was doing well until approximately 2 days ago when she began having lower pelvic and abdominal pain. Patient was unable to receive her Xifaxan secondary to insurance issues. Was not clear whether this had anything to do with her symptoms. Patient denied any headache any fever or chills no evidence of encephalopathy. Patient is alert at all times and only complained of abdominal pain. Patient states abdominal pain was more in the right upper quadrant. Associated with nausea. Unable to hold down. Patient become nauseated and have pain with eating. Evaluation in the ED patient had CT scan which showed cholelithiasis. Past History Past Medical History: hepatitis, liver disease, other (cirrhosis, varices) Past Surgical History: Other (Dx laparoscopy. Removal of scar tissue around fallopian tubes) Social history: no significant social history Family history: no significant family history Medications and Allergies Allergies Allergy/AdvReac Type Severity Reaction Status Date / Time Sulfa (Sulfonamide AdvReac Rash Verified 05/20/14 14:37 Antibiotics) Home Medications Medication Instructions Recorded Confirmed Last Taken Type Omeprazole 20 mg PO QDAY 02/19/18 03/15/19 Unknown History Ondansetron [Zofran Odt] 4 mg PO Q4H PRN 02/19/18 03/15/19 Unknown History Potassium Chloride [K-Dur] 10 meq PO QDAY #14 tablet 02/21/18 03/15/19 Unknown Rx Rifaximin [Xifaxan] 550 mg PO BID #60 tablet 02/21/18 03/15/19 03/04/19 08:00 Rx Furosemide [Lasix] 20 mg PO QDAY 03/15/19 03/15/19 03/15/19 08:00 History Lactulose 30 gm PO TID 03/15/19 03/15/19 Unknown History Nadolol [Corgard] 20 mg PO QDAY 03/15/19 03/15/19 03/14/19 08:00 History Spironolactone [Aldactone] 50 mg PO QDAY 0803/15/19 03/14/19 08:00 History buPROPion HCl [Wellbutrin Sr] 150 mg PO DAILY 03/15/19 03/15/19 03/14/19 08:00 History oxyCODONE /ACETAMINOPHEN [Percocet 1 tab PO BID PRN 03/15/19 03/15/19 Unknown History 5/325] Active Meds: Active Medications Acetaminophen (Tylenol) 650 mg PO Q4H PRN PRN Reason: Pain MILD(1-3)/Fever >100.5/ROCHA Bupropion HCl (Wellbutrin) 150 mg PO DAILY [facility] Enoxaparin Sodium (Lovenox) 40 mg SUB-Q QDAY [facility] Last Admin: 03/15/19 14:06 Dose: 40 mg Documented by: Famotidine (Pepcid) 20 mg IV BID [facility] Last Admin: 03/15/19 14:53 Dose: Not Given Documented by: Sodium Chloride (Nacl 0.9% 1000 Ml) 1,000 mls @ 100 mls/hr IV DIRECT [facility] Last Admin: 03/15/19 13:20 Dose: 100 mls/hr Documented by: Lactulose (Cephulac) 30 gm PO TID [facility] Magnesium Hydroxide (Milk Of Magnesia) 30 ml PO Q4H PRN PRN Reason: Constipation Metoclopramide HCl (Reglan) 10 mg IV Q6H PRN PRN Reason: Nausea And Vomiting Morphine Sulfate (Morphine) 2 mg IV Q4H PRN PRN Reason: Pain, Moderate (4-6) Nadolol (Corgard) 20 mg PO QDAY [facility] Naloxone HCl (Narcan 0.4 Mg/1 Ml) 0.1 mg IV Q2MIN PRN PRN Reason: Res Rate </= 8 or 02 SAT < 92% Ondansetron HCl (Zofran) 4 mg IV Q8H PRN PRN Reason: Nausea And Vomiting Ondansetron HCl (Zofran Odt) 4 mg PO Q4H PRN PRN Reason: Nausea Oxycodone/Acetaminophen (Percocet 5/325) 1 tab PO BID PRN PRN Reason: Pain, Moderate (4-6) Last Admin: 03/15/19 14:51 Dose: 1 tab Documented by: Rifaximin (Xifaxan) 550 mg PO BID [facility] Senna (Senokot) 8.6 mg PO Q12HR [facility] Sodium Chloride (Sodium Chloride Flush Syringe 10 Ml) 10 ml IV BID [facility] Sodium Chloride (Sodium Chloride Flush Syringe 10 Ml) 10 ml IV PRN PRN PRN Reason: LINE FLUSH Review of Systems Constitutional: anorexia, fatigue, weakness, no weight loss, no weight gain, no fever, no chills, no sweats, no night sweats, no malaise, no lethargy, no chronic headaches, no poor appetite, no daytime sleepiness, no chronic pain Ears, nose, mouth and throat: no ear pain, no ear discharge, no decreased hearing, no nasal discharge, no sinus pain, no bleeding gums, no mouth pain, no dysphagia, no hoarseness, no sore throat, no post-nasal drip, no neck fullness/pressure Cardiovascular: no orthopnea, no palpitations, no syncope, no claudication, no leg edema Respiratory: no cough, no shortness of breath, no dyspnea on exertion, no congestion, no wheezing, no pleurisy, no pain, no other Gastrointestinal: abdominal pain, nausea, vomiting, change in bowel habits, heartburn, jaundice, early satiety, no diarrhea, no constipation, no hematemesis, no BRBPR, no melena, no hematochezia, no loss of appetite, no early satiety, no indigestion, no belching Genitourinary Female: no dyspareunia, no dysmenorrhea, no pelvic pain, no flank pain, no menorrhagia, no dysuria, no urinary frequency, no urgency, no stress incontinence, no post void dribbling, no incomplete emptying, no urge incontinence, no mixed incontinence, no difficulty voiding, no hematuria, no nocturia, no vaginal itching, no vaginal odor, no vaginal dryness, no hot flashes, no prolapse symptoms, no Rectal: no pain, no incontinence, no bleeding, no itching, no hemorrhoids Musculoskeletal: no arm numbness/tingling, no low back pain, no leg numb ness/tingling, no muscle weakness, no myalgias, no fractures, no loss of height, no arthritis Integumentary: no deferred Neurological: no paralysis, no parathesias, no tingling, no migraines, no convulsions, no confusion, no changes in smell/taste, no double vision, no loss of vision, no hearing difficulties, no other Psychiatric: no hallucinations Endocrine: no cold intolerance, no polyphagia, no excessive thirst, no polydipsia, no weight change, no increase in ring/shoe/hat size, no deepening of the voice, no high blood sugars, no fatigue Hematologic/Lymphatic: no easy bruising, no easy bleeding, no lymphadenopathy, no other Allergic/Immunologic: no allergic rhinitis, no persistent infections, no gluten intolerance, no seasonal allergies Exam - Constitutional Vitals: Temp Pulse Resp BP Pulse Ox 97.7 F 63 18 105/49 100 03/15/19 03:18 03/15/19 10:28 03/15/19 10:28 03/15/19 10:28 03/15/19 10:28 General appearance: Present: no acute distress, well-nourished - EENT Eyes: Present: PERRL ENT: hearing intact, clear oral mucosa - Neck Neck: Present: supple, normal ROM - Respiratory Respiratory effort: normal Respiratory: bilateral: CTA - Cardiovascular Heart Sounds: Present: S1 & S2. Absent: rub, click - Extremities Extremities: pulses symmetrical, No edema Peripheral Pulses: within normal limits - Abdominal General gastrointestinal: Present: soft, non-tender, non-distended, normal bowel sounds, other (right upper quadrant pain. No rebound some guarding of the area. Positive bowel sounds.) Female genitourinary: Present: normal - Integumentary Integumentary: Present: clear, warm, dry - Musculoskeletal Musculoskeletal: gait normal, strength equal bilaterally - Psychiatric Psychiatric: appropriate mood/affect, intact judgment & insight - Neurologic Neurologic: CNII-XII intact, moves all extremities Results - Labs CBC & Chem 7: 03/15/19 03:42 03/15/19 03:42 Labs: Laboratory Last Values WBC 7.1 K/mm3 (4.5-11.0) 03/15/19 03:42 RBC 3.88 M/mm3 (3.65-5.03) 03/15/19 03:42 Hgb 12.8 gm/dl (10.1-14.3) 03/15/19 03:42 Hct 37.5 % (30.3-42.9) 03/15/19 03:42 MCV 97 fl (79-97) 03/15/19 03:42 MCH 33 pg (28-32) H 03/15/19 03:42 MCHC 34 % (30-34) 03/15/19 03:42 RDW 18.7 % (13.2-15.2) H 03/15/19 03:42 Plt Count 84 K/mm3 (140-440) L 03/15/19 03:42 Lymph % (Auto) 15.6 % (13.4-35.0) 03/15/19 03:42 [place] % (Auto) 11.4 % (0.0-7.3) H 03/15/19 03:42 Eos % (Auto) 1.6 % (0.0-4.3) 03/15/19 03:42 Baso % (Auto) 0.5 % (0.0-1.8) 03/15/19 03:42 Lymph # 1.1 K/mm3 (1.2-5.4) L 03/15/19 03:42 [place] # 0.8 K/mm3 (0.0-0.8) 03/15/19 03:42 Eos # 0.1 K/mm3 (0.0-0.4) 03/15/19 03:42 Baso # 0.0 K/mm3 (0.0-0.1) 03/15/19 03:42 Seg Neutrophils % 70.9 % (40.0-70.0) H 03/15/19 03:42 Seg Neutrophils # 5.1 K/mm3 (1.8-7.7) 03/15/19 03:42 PT 18.5 Sec. (12.2-14.9) H 03/15/19 03:42 INR 1.58 (0.87-1.13) H 03/15/19 03:42 675.38 ng/mlDDU (0-234) H 03/15/19 03:42 Sodium 142 mmol/L (137-145) 03/15/19 03:42 Potassium 4.5 mmol/L (3.6-5.0) 03/15/19 03:42 Chloride 104.4 mmol/L (98-107) 03/15/19 03:42 Carbon Dioxide 28 mmol/L (22-30) 03/15/19 03:42 14 mmol/L 03/15/19 03:42 BUN 13 mg/dL (7-17) 03/15/19 03:42 0.8 mg/dL (0.7-1.2) 03/15/19 03:42 Estimated GFR > 60 ml/min 03/15/19 03:42 16 % 03/15/19 03:42 Glucose 108 mg/dL (65-100) H 03/15/19 03:42 Calcium 9.0 mg/dL (8.4-10.2) 03/15/19 03:42 Magnesium 2.10 mg/dL (1.7-2.3) 03/15/19 03:42 1.70 mg/dL (0.1-1.2) H 03/15/19 03:42 AST 77 units/L (5-40) H 03/15/19 03:42 ALT 49 units/L (7-56) 03/15/19 03:42 143 units/L (35-129) H 03/15/19 03:42 49.0 umol/L (25-60) 03/15/19 03:42 149 units/L (30-135) H 03/15/19 03:42 < 0.010 ng/mL (0.00-0.029) 03/15/19 09:39 6.7 g/dL (6.3-8.2) 03/15/19 03:42 2.9 g/dL (3.9-5) L 03/15/19 03:42 0.8 % 03/15/19 03:42 59 units/L (13-60) 03/15/19 03:42 Yellow (Yellow) 03/15/19 10:13 Clear (Clear) 03/15/19 10:13 7.0 (5.0-7.0) 03/15/19 10:13 Ur Specific [place] 1.053 (1.003-1.030) H 03/15/19 10:13 <15 mg/dl mg/dL (Negative) 03/15/19 10:13 Neg mg/dL (Negative) 03/15/19 10:13 Neg mg/dL (Negative) 03/15/19 10:13 Neg (Negative) 03/15/19 10:13 Neg (Negative) 03/15/19 10:13 Neg (Negative) 03/15/19 10:13 2.0 mg/dL (<2.0) 03/15/19 10:13 Ur Leukocyte Esterase Tr (Negative) 03/15/19 10:13 2.0 /HPF (0.0-6.0) 03/15/19 10:13 8.0 /HPF (0.0-6.0) 03/15/19 10:13 U Epithel Cells (Auto) 1.0 /HPF (0-13.0) 03/15/19 10:13 Few /HPF 03/15/19 10:13 - Imaging and Cardiology Chest x-ray: image reviewed CT scan - abdomen: image reviewed Assessment and Plan Advance Directives: Yes VTE prophylaxis?: Chemical Plan of care discussed with patient/family: Yes - Patient Problems (1) Acute abdominal pain Current Visit: Yes Status: Acute Plan to address problem: Acute abdominal pain appears to be directly related to cholelithiasis. Right upper quadrant pain associated with meals. See #2 for plan. (2) Cholelithiasis Current Visit: Yes Status: Acute Plan to address problem: CT scan consistent with cholelithiasis. Will admit patient start bowel rest. Nothing by mouth for now. Supportive care and pain control. May add lactulose at this time. Patient no longer taking Xifaxan. Surgical evaluation. Given recent CT scan patient may require HIDA scan to better establish function. (3) History of cirrhosis of liver Current Visit: Yes Status: Acute Plan to address problem: We'll start back on lactulose and spironolactone. At that time patient is not eating well. Appears to be somewhat volume depleted. We'll hold Lasix until tomorrow.
[2019-03-15] MEDS: XIFAXAN PO SCH ×2 (17:08→21:00)
[2019-03-15] MEDS: WELLBUTRIN PO SCH (19:29)
[2019-03-15] MEDS: CEPHULAC PO SCH (20:55)
[2019-03-15] MEDS: SENOKOT PO SCH (21:04)
[2019-03-15] MEDS: SODIUM CHLORIDE FLUSH SYRINGE 10 ML IV SCH (21:05)
[2019-03-16] MEDS: NACL 0.9% 1000 ML 1,000 ML IV SCH (08:48)
[2019-03-16] MEDS: CEPHULAC PO SCH ×2 (09:10→13:23)
--- NOTE | 2019-03-16 10:38 | Progress Note ---
Assessment and Plan 54 yo F with 1. RUQ pain 2. cholelithiasis 3. hep C and cirrhosis of the liver Plan: Patient stable and tolerated liquid diet 1. NPO today for HIDA scan, may resume liquid diet after 2. prn pain control 3. IVF 4. agree with GI recs - if patient requires cholecystectomy, should be referred to hepatobiliary surgeon due to cirrhosis. If her pain is minimal and she is tolerating a diet, this can be done as an outpatient. 5. recommend HIDA scan - tech called in to perform test today 6. on abx Thank you, please call with questions. Subjective Date of service: 03/16/19 Narrative: Pt seen and examined. c/o mild intermittent RUQ discomfort. Tolerated full liquid diet without n/v. No f/c. Objective Vital Signs - 12hr 03/16/19 05:14 Temperature 98.2 F Pulse Rate 68 Respiratory 16 Rate Blood Pressure 96/46 [Left] O2 Sat by Pulse 96 Oximetry - General physical appearance Narrative Exam: Gen: AAOx3. NAD ENt: no scleral icterus or conjunctival pallor Cv; S1, S2+ resp: even and unlabored Abd: soft, NT, ND. no r/r/g Ext: no c/c/e - Labs 03/15/19 03:42 03/15/19 03:42
--- NOTE | 2019-03-16 12:36 | Nuclear Medicine Report ---
Radionuclide hepatobiliary scan HISTORY: Cholelithiasis. Abdominal pain. AP images were obtained following intravenous injection of 5.13 mCi technetium Choletec. Uptake is demonstrated in the gallbladder and small bowel at 20 minutes, indicating patent cystic and common bile ducts. IMPRESSION: Normal study. Signer Name: Iban Garcia MD Signed: 03/16/2019 12:32 PM Workstation Name: [id number]
[2019-03-16] MEDS: XIFAXAN PO SCH (12:52)
[2019-03-16] MEDS: PERCOCET 5/325 PO PRN (12:53)
[2019-03-16] MEDS: WELLBUTRIN PO SCH (12:53)
[2019-03-16] MEDS: PEPCID IV SCH (12:54)
[2019-03-16] MEDS: LOVENOX SUB-Q SCH (12:54)
[2019-03-16] MEDS: SODIUM CHLORIDE FLUSH SYRINGE 10 ML IV SCH (12:54)
[2019-03-16 12:58] VITALS: BP 107/64
[2019-03-16] MEDS: SENOKOT PO SCH (13:01)
--- NOTE | 2019-03-16 13:31 | Event Note ---
Date: 03/16/19 Patient's HIDA scan images and report reviewed - normal study. Ok to start low fat diet and dc from surgery standpoint. Patient may be having intermittent symptoms from cholelithasis. Should follow up with GI as outpatient and hepatobiliary surgery for elective cholecystectomy. D/W Dr. El
--- NOTE | 2019-03-16 13:53 | Discharge Summary ---
Providers - Providers Date of Admission: 03/15/19 08:27 Date of discharge: 03/16/19 Attending physician: WALTER SELBY 03/15/19 07:54 Consult to Physician [CONS] Stat Comment: Consulting Provider: ALVINA PEREZ Physician Instructions: Reason For Exam: cholelithiasis 03/15/19 07:57 Consult to Physician [CONS] Stat Comment: Consulting Provider: ELIE MORENO Physician Instructions: Reason For Exam: cholelithiasis Primary care physician: SHARITA ROBLEDO Hospitalization Condition: Good Pertinent studies: CT scan chest unremarkable for pulmonary embolism., S x-ray unremarkable. CT scan abdomen showed cholelithiasis with hepatic cirrhosis. Hepatobiliary scan unremarkable vessels are patent Disposition: [id number] TO HOME OR SELFCARE - Discharge Diagnoses (1) Acute abdominal pain Status: Acute Comment: Secondary to acute on chronic cholecystitis. Patient hepatobiliary scan negative. Patient follow-up with GI as well as [place] for hepatobiliary surgery. Low-fat diet clear liquid diet. (2) Cholelithiasis Status: Acute Comment: Again cause of pain acute on chronic cholecystitis. With cholelithiasis. Patient has hepatic cirrhosis will need transfer to surgery for hepatobiliary surgeon. Low-fat diet GI follow-up with Dr. alexander. (3) History of cirrhosis of liver Status: Acute Core Measure Documentation - Palliative Care Palliative Care/ Comfort Measures: Not Applicable - Core Measures Any of the following diagnoses?: none Exam - Constitutional Vitals: Temp Pulse Resp BP Pulse Ox 99.1 F 88 16 107/64 100 03/16/19 12:51 03/16/19 12:51 03/16/19 12:51 03/16/19 12:51 03/16/19 12:51 General appearance: Present: no acute distress, well-nourished - EENT Eyes: Present: PERRL ENT: hearing intact, clear oral mucosa - Neck Neck: Present: supple, normal ROM - Respiratory Respiratory effort: normal Respiratory: bilateral: CTA - Cardiovascular Heart Sounds: Present: S1 & S2. Absent: rub, click - Extremities Extremities: pulses symmetrical, No edema Peripheral Pulses: within normal limits - Abdominal General gastrointestinal: Present: soft, tender, normal bowel sounds. Absent: distended, hepatomegaly, splenomegaly Female genitourinary: Present: normal - Integumentary Integumentary: Present: clear, warm, dry - Musculoskeletal Musculoskeletal: gait normal, strength equal bilaterally - Psychiatric Psychiatric: appropriate mood/affect, intact judgment & insight - Neurologic Neurologic: CNII-XII intact, moves all extremities Plan Activity: no restrictions Weight Bearing Status: Full Weight Bearing Diet: low cholesterol, low carbohydrate Follow up with: SHARITA ROBLEDO MD [Primary Care Provider] - 3-5 Days Prescriptions: Lactulose [Cephulac] 30 gm PO TID #20 oral.liqd Nadolol [Corgard] 20 mg PO QDAY #30 tablet Furosemide [Lasix TAB] 20 mg PO QDAY #30 tablet oxyCODONE /ACETAMINOPHEN [Percocet 5/325 mg] 1 tab PO BID PRN #60 tablet PRN Reason: Pain, Moderate (4-6) Sennosides Tab [Senokot] 8.6 mg PO Q12HR #30 tablet Rifaximin [Xifaxan] 550 mg PO BID #20 tablet
== END 2019-03-16 16:02 | disposition home or self-care (01) | DRG 446 ==
LOC: ED 02:55 → 3A 08:27
PROVIDERS: ADMIT Internal Medicine; ATTEND Internal Medicine
DX: K80.12 Calculus of gallbladder with acute and chronic cholecystitis without obstruction (principal); K74.60 Unspecified cirrhosis of liver; I10 Essential (primary) hypertension; F32.9 Major depressive disorder, single episode, unspecified; B19.20 Unspecified viral hepatitis C without hepatic coma; Z87.19 Personal history of other diseases of the digestive system; Z88.2 Allergy status to sulfonamides
CPT/HCPCS: 36415; 71045; 71275; 74177; 78226; 80053; 81001; 82140; 82550; 83690; 83735; 84484; 85025; 85379; 85610; 93005; 93010; G0378; A9537; J1650; J2270; J2405; J7030; J7040; Q9967

== ENCOUNTER 2019-04-10 18:15 | Emergency (ER) | payer MEDICAID ==
--- NOTE | 2019-04-10 18:25 | Emergency Department Report ---
Blank Doc - Documentation Documentation: 54-year-old female that presents with RUQ pain and n/v. HX of liver disease w ith gallstones. This initial assessment/diagnostic orders/clinical plan/treatment(s) is/are subject to change based on patient's health status, clinical progression and re- assessment by fellow clinical providers in the ED. Further treatment and workup at subsequent clinical providers discretion. Patient/guardians urged not to elope from the ED as their condition may be serious if not clinically assessed and managed. Initial orders include: 1- Patient sent to MAIN for further evaluation and treatment 2- labs 3- UA
[2019-04-10 19:22] LABS: Basophils # (Auto) 0.1 K/mm3 (0.0-0.1); Basophils % (Auto) 1.4 % (0.0-1.8); Eosinophils # (Auto) 0.2 K/mm3 (0.0-0.4); Hematocrit 40.6 % (30.3-42.9); Hemoglobin 13.6 gm/dl (10.1-14.3); Lymphocytes # (Auto) 2.2 K/mm3 (1.2-5.4); Lymphocytes % (Auto) 46.6 % (13.4-35.0); Mean Corpuscular HGB Conc 33 % (30-34); Mean Corpuscular Volume 99 fl (79-97); Monocytes # (Auto) 0.5 K/mm3 (0.0-0.8); Monocytes % (Auto) 11.4 % (0.0-7.3); Red Blood Count 4.11 M/mm3 (3.65-5.03); Red Cell Distribution Width 17.8 % (13.2-15.2)
[2019-04-10 19:32] LABS: Platelet Count 85 K/mm3 (140-440)
[2019-04-10 19:43] LABS: Albumin 3.1 g/dL (3.9-5); Calcium 9.4 mg/dL (8.4-10.2)
[2019-04-10] MEDS ORDERED: SUBLIMAZE IV ONE (23:07)
[2019-04-10] MEDS ORDERED: ZOFRAN IV ONE (23:08)
--- NOTE | 2019-04-10 23:12 | Emergency Department Report ---
ED N/V/D HPI - General Chief complaint: Nausea/Vomiting/Diarrhea Stated complaint: STAGE 4 LIVER FAILURE/PAIN Time Seen by Provider: 04/10/19 18:23 Source: patient Mode of arrival: Ambulatory Limitations: No Limitations - History of Present Illness Initial comments: This is a 54-year-old white female with history of liver cirrhosis, presenting with worsening right upper quadrant pain, nausea, vomiting. Patient states she was admitted in the hospital on March 15 for same, had workup by GI, which showed a normal HIDA scan, therefore she did not have any surgery. Admission diagnosis was cholecystitis. She followed up with her GI doctor, who was going to set her up at [facility] for further workup. The past 2 days she has been unable to keep any food down, her pain is 10 out of 10, sharp, right upper quadrant, radiating to back, therefore she presented to ED for further evaluations. - Related Data Home Medications Medication Instructions Recorded Confirmed Last Taken Omeprazole 20 mg PO QDAY 02/19/18 03/15/19 Unknown Ondansetron [Zofran Odt] 4 mg PO Q4H PRN 02/19/18 03/15/19 Unknown Lactulose 30 gm PO TID 03/15/19 03/15/19 Unknown Spironolactone [Aldactone] 50 mg PO QDAY 03/15/19 03/15/19 03/14/19 08:00 buPROPion HCl [Wellbutrin Sr] 150 mg PO DAILY 03/15/19 03/15/19 03/14/19 08:00 oxyCODONE /ACETAMINOPHEN [Percocet 1 tab PO BID PRN 03/15/19 03/15/19 Unknown 5/325 mg] Previous Rx's Medication Instructions Recorded Last Taken Type Potassium Chloride [K-Dur] 10 meq PO QDAY #14 tablet 02/21/18 Unknown Rx Rifaximin [Xifaxan] 550 mg PO BID #60 tablet 02/21/18 03/04/19 08:00 Rx Acetaminophen [Acetaminophen TAB] 650 mg PO Q4H PRN tablet 03/16/19 Unknown Rx Furosemide [Lasix TAB] 20 mg PO QDAY #30 tablet 03/16/19 Unknown Rx Lactulose [Cephulac] 30 gm PO TID #20 oral.liqd 03/16/19 Unknown Rx Magnesium Hydroxide [Milk of 30 ml PO Q4H PRN oral.liqd 03/16/19 Unknown Rx Magnesia] Nadolol [Corgard] 20 mg PO QDAY tablet 03/16/19 Unknown Rx Nadolol [Corgard] 20 mg PO QDAY #30 tablet 03/16/19 Unknown Rx Rifaximin [Xifaxan] 550 mg PO BID #20 tablet 03/16/19 Unknown Rx Sennosides Tab [Senokot] 8.6 mg PO Q12HR #30 tablet 03/16/19 Unknown Rx buPROPion [Wellbutrin] 150 mg PO DAILY tablet 03/16/19 Unknown Rx oxyCODONE /ACETAMINOPHEN [Percocet 1 tab PO BID PRN #60 tablet 03/16/19 Unknown Rx 5/325 mg] Allergies Allergy/AdvReac Type Severity Reaction Status Date / Time Sulfa (Sulfonamide AdvReac Rash Verified 05/20/14 14:37 Antibiotics) ED Review of Systems ROS: Stated complaint: STAGE 4 LIVER FAILURE/PAIN Other details as noted in HPI Comment: All other systems reviewed and negative ENT: denies: ear pain Respiratory: denies: cough Cardiovascular: denies: dyspnea on exertion Gastrointestinal: abdominal pain, nausea, vomiting ED Past Medical Hx - Past Medical History Hx Hypertension: Yes (PT DENIES) Hx Heart Attack/AMI: No Hx Congestive Heart Failure: No Hx Diabetes: No Hx Liver Disease: Yes Hx Psychiatric Treatment: Yes (DEPRESSION, ETOH abuse) Hx Asthma: No Hx COPD: No Additional medical history: GI bleeding, cirrosis, ulcer - Surgical History Additional Surgical History: Bladder tacted - Social History Smoking Status: Never Smoker Substance Use Type: None - Medications Home Medications: Home Medications Medication Instructions Recorded Confirmed Last Taken Type Omeprazole 20 mg PO QDAY 02/19/18 03/15/19 Unknown History Ondansetron [Zofran Odt] 4 mg PO Q4H PRN 02/19/18 03/15/19 Unknown History Potassium Chloride [K-Dur] 10 meq PO QDAY #14 tablet 02/21/18 03/15/19 Unknown Rx Rifaximin [Xifaxan] 550 mg PO BID #60 tablet 02/21/18 03/15/19 03/04/19 08:00 Rx Lactulose 30 gm PO TID 03/15/19 03/15/19 Unknown History Spironolactone [Aldactone] 50 mg PO QDAY 03/15/19 03/15/19 03/14/19 08:00 History buPROPion HCl [Wellbutrin Sr] 150 mg PO DAILY 03/15/19 03/15/19 03/14/19 08:00 History oxyCODONE /ACETAMINOPHEN [Percocet 1 tab PO BID PRN 03/15/19 03/15/19 Unknown History 5/325 mg] Acetaminophen [Acetaminophen TAB] 650 mg PO Q4H PRN tablet 03/16/19 Unknown Rx Furosemide [Lasix TAB] 20 mg PO QDAY #30 tablet 03/16/19 Unknown Rx Lactulose [Cephulac] 30 gm PO TID #20 oral.liqd 03/16/19 Unknown Rx Magnesium Hydroxide [Milk of 30 ml PO Q4H PRN oral.liqd 03/16/19 Unknown Rx Magnesia] Nadolol [Corgard] 20 mg PO QDAY tablet 03/16/19 Unknown Rx Nadolol [Corgard] 20 mg PO QDAY #30 tablet 03/16/19 Unknown Rx Rifaximin [Xifaxan] 550 mg PO BID #20 tablet 03/16/19 Unknown Rx Sennosides Tab [Senokot] 8.6 mg PO Q12HR #30 tablet 03/16/19 Unknown Rx buPROPion [Wellbutrin] 150 mg PO DAILY tablet 03/16/19 Unknown Rx oxyCODONE /ACETAMINOPHEN [Percocet 1 tab PO BID PRN #60 tablet 03/16/19 Unknown Rx 5/325 mg] ED Physical Exam - General Limitations: No Limitations General appearance: alert, in no apparent distress - Head Head exam: Present: atraumatic, normocephalic - Eye Eye exam: Present: normal appearance, PERRL, EOMI Pupils: Present: normal accommodation - ENT ENT exam: Present: normal exam, normal orophraynx - Neck Neck exam: Present: normal inspection - Respiratory Respiratory exam: Present: normal lung sounds bilaterally - Cardiovascular Cardiovascular Exam: Present: regular rate, normal rhythm - GI/Abdominal GI/Abdominal exam: Present: soft, tenderness (right upper quadrant) - Extremities Exam Extremities exam: Present: normal inspection - Neurological Exam Neurological exam: Present: alert, oriented X3, CN II-XII intact ED Course Vital Signs 09/12/19 18:22 Temperature 98.2 F Pulse Rate 61 Respiratory 13 Rate Blood Pressure 148/44 [Left] O2 Sat by Pulse 99 Oximetry ED Medical Decision Making - Lab Data Result diagrams: 04/10/19 18:33 04/10/19 18:33 Critical care attestation.: If time is entered above; I have spent that time in minutes in the direct care of this critically ill patient, excluding procedure time. ED Disposition Condition: Stable
--- NOTE | 2019-04-11 00:24 | Ultrasound Report ---
ULTRASOUND ABDOMEN, LIMITED (RIGHT UPPER QUADRANT) INDICATION: right upper quadrant pain COMPARISON: None available. LIMITATIONS: None FINDINGS: Pancreas: Visualized portion shows no significant abnormality. Liver: Normal. Gallbladder: Normal. Bile ducts: Normal. Common Bile Duct measures 5 mm. Right Kidney: A 3.1 cm simple cyst is noted. Free fluid: None. Additional Findings: None. IMPRESSION: No acute abnormalities are seen. Signer Name: Asher Weinstein MD Signed: 04/11/2019 12:20 AM Workstation Name: [id number]
[2019-04-11] MEDS ORDERED: NORCO 10/325 PO ONE (02:11)
[2019-04-11 02:41] VITALS: BP 112/43
== END 2019-04-11 02:40 | disposition home or self-care (01) ==
LOC: ED 18:15
DX: R10.11 Right upper quadrant pain (principal); R11.2 Nausea with vomiting, unspecified; I10 Essential (primary) hypertension; F32.9 Major depressive disorder, single episode, unspecified; Z87.11 Personal history of peptic ulcer disease; Z87.19 Personal history of other diseases of the digestive system; Z88.2 Allergy status to sulfonamides; Z79.899 Other long term (current) drug therapy
CPT/HCPCS: 36415; 76705; 80053; 83690; 85025; 96374; 96375; 99284; J2405; J3010

== ENCOUNTER 2019-04-22 21:48 | Inpatient (IN) | payer MEDICAID ==
--- NOTE | 2019-04-22 21:58 | Event Note ---
ED Screening Note Date of service: 04/22/19 Time: 21:54 ED Screening Note: 54 y o female presents with Altered status PMH of satge 4 liver disease last episode of high am[place] levels causing demntia This initial assessment/diagnostic orders/clinical plan/treatment(s) is/are subject to change based on patients health status, clinical progression and re- assessment by fellow clinical providers in the ED. Further treatment and workup at subsequent clinical providers discretion. Patient/guardian urged not to elope from the ED as their condition may be serious if not clinically assessed and managed. Initial orders include: labs Main side eval
--- NOTE | 2019-04-22 22:47 | Cat Scan Report ---
CT head/brain wo con INDICATION: Altered Mental Status. TECHNIQUE: Routine CT head without contrast. All CT scans at this location are performed using CT dos e reduction for ALARA by means of automated exposure control. COMPARISON: CT head 04/22/2018 FINDINGS: BRAIN / INTRACRANIAL CONTENTS: No acute hemorrhage, mass effect, midline shift, or hydrocephalus. No appreciable acute large territorial or lacunar infarct. ORBITS: No significant abnormality of visualized orbits. SINUSES / MASTOIDS: No significant abnormality of visualized sinuses and mastoid air cells. ADDITIONAL FINDINGS: None. IMPRESSION: 1. No acute intracranial abnormality. Signer Name: Roberot Kan MD Signed: 04/22/2019 10:43 PM Workstation Name: [id number]
[2019-04-22 23:08] LABS: Hematocrit 43.7 % (30.3-42.9); Hemoglobin 14.3 gm/dl (10.1-14.3); Mean Corpuscular HGB Conc 33 % (30-34); Mean Corpuscular Volume 98 fl (79-97); Red Blood Count 4.47 M/mm3 (3.65-5.03); Red Cell Distribution Width 16.1 % (13.2-15.2)
[2019-04-22 23:09] LABS: Eosinophils # (Auto) 0.2 K/mm3 (0.0-0.4); Eosinophils % (Auto) 4.1 % (0.0-4.3); Lymphocytes # (Auto) 2.1 K/mm3 (1.2-5.4); Lymphocytes % (Auto) 36.1 % (13.4-35.0); Monocytes # (Auto) 0.8 K/mm3 (0.0-0.8); Monocytes % (Auto) 14.4 % (0.0-7.3); Platelet Count 80 K/mm3 (140-440)
[2019-04-22 23:10] LABS: Basophils # (Auto) 0.1 K/mm3 (0.0-0.1)
[2019-04-22 23:24] LABS: Albumin 3.3 g/dL (3.9-5); Bilirubin,Direct 0.6 mg/dL (0-0.2); Calcium 9.1 mg/dL (8.4-10.2)
[2019-04-23] MEDS ORDERED: LACTULOSE 20 GM/30 ML ORAL LIQD PO ONE (00:20)
--- NOTE | 2019-04-23 00:36 | Emergency Department Report ---
ED Altered Mental Status HPI - General Chief Complaint: Altered Mental Status Stated Complaint: CONFUSION/STAGE 4 LIVER FAILURE Time Seen by Provider: 04/22/19 21:54 Source: patient Mode of arrival: Ambulatory Limitations: No Limitations - History of Present Illness Initial Comments: 54-year-old female with a past medical history of liver cirrhosis and cholelithiasis is recommendation for follow-up with [facility] presents to the hospital with complaints of alteration in mental status. Daughter was concerned that patient was more confused today. Patient has had similar symptoms in the past related to hepatic encephalopathy. Patient states she's been compliant with her 3 times a day dosing of lactulose. She states she takes anywhere between 20-30 g with each dose. Patient complains of ongoing abdominal pain states she has been unable to schedule her recommended follow-up visit with [facility]. She had one episode of vomiting earlier today. - Related Data Home Medications Medication Instructions Recorded Confirmed Last Taken Omeprazole 20 mg PO QDAY 02/19/18 03/15/19 Unknown Ondansetron [Zofran Odt] 4 mg PO Q4H PRN 02/19/18 03/15/19 Unknown Lactulose 30 gm PO TID 03/15/19 03/15/19 Unknown Spironolactone [Aldactone] 50 mg PO QDAY 03/15/19 03/15/19 03/14/19 08:00 buPROPion HCl [Wellbutrin Sr] 150 mg PO DAILY 03/15/19 03/15/19 03/14/19 08:00 oxyCODONE /ACETAMINOPHEN [Percocet 1 tab PO BID PRN 03/15/19 03/15/19 Unknown 5/325 mg] Previous Rx's Medication Instructions Recorded Last Taken Type Potassium Chloride [K-Dur] 10 meq PO QDAY #14 tablet 02/21/18 Unknown Rx Rifaximin [Xifaxan] 550 mg PO BID #60 tablet 02/21/18 03/04/19 08:00 Rx Acetaminophen [Acetaminophen TAB] 650 mg PO Q4H PRN tablet 03/16/19 Unknown Rx Furosemide [Lasix TAB] 20 mg PO QDAY #30 tablet 03/16/19 Unknown Rx Lactulose [Cephulac] 30 gm PO TID #20 oral.liqd 03/16/19 Unknown Rx Magnesium Hydroxide [Milk of 30 ml PO Q4H PRN oral.liqd 03/16/19 Unknown Rx Magnesia] Nadolol [Corgard] 20 mg PO QDAY tablet 03/16/19 Unknown Rx Nadolol [Corgard] 20 mg PO QDAY #30 tablet 03/16/19 Unknown Rx Rifaximin [Xifaxan] 550 mg PO BID #20 tablet 03/16/19 Unknown Rx Sennosides Tab [Senokot] 8.6 mg PO Q12HR #30 tablet 03/16/19 Unknown Rx buPROPion [Wellbutrin] 150 mg PO DAILY tablet 03/16/19 Unknown Rx oxyCODONE /ACETAMINOPHEN [Percocet 1 tab PO BID PRN #60 tablet 03/16/19 Unknown Rx 5/325 mg] Cyclobenzaprine [Flexeril] 10 mg PO TID PRN #15 tablet 04/11/19 Unknown Rx Promethazine [Phenergan] 25 mg PO Q8HR PRN #15 tab 04/11/19 Unknown Rx Allergies Allergy/AdvReac Type Severity Reaction Status Date / Time Sulfa (Sulfonamide AdvReac Rash Verified 05/20/14 14:37 Antibiotics) ED Review of Systems ROS: Stated complaint: CONFUSION/STAGE 4 LIVER FAILURE Other details as noted in HPI Comment: All other systems reviewed and negative ED Past Medical Hx - Past Medical History Previous Medical History?: Yes Hx Hypertension: Yes (PT DENIES) Hx Heart Attack/AMI: No Hx Congestive Heart Failure: No Hx Diabetes: No Hx Liver Disease: Yes Hx Psychiatric Treatment: Yes (DEPRESSION, ETOH abuse) Hx Asthma: No Hx COPD: No Additional medical history: GI bleeding, cirrosis, ulcer - Surgical History Past Surgical History?: Yes Additional Surgical History: Bladder tacted - Social History Smoking Status: Former Smoker Substance Use Type: Alcohol - Medications Home Medications: Home Medications Medication Instructions Recorded Confirmed Last Taken Type Omeprazole 20 mg PO QDAY 02/19/18 03/15/19 Unknown History Ondansetron [Zofran Odt] 4 mg PO Q4H PRN 02/19/18 03/15/19 Unknown History Potassium Chloride [K-Dur] 10 meq PO QDAY #14 tablet 02/21/18 03/15/19 Unknown Rx Rifaximin [Xifaxan] 550 mg PO BID #60 tablet 02/21/18 03/15/19 03/04/19 08:00 Rx Lactulose 30 gm PO TID 03/15/19 03/15/19 Unknown History Spironolactone [Aldactone] 50 mg PO QDAY 03/15/19 03/15/19 03/14/19 08:00 History buPROPion HCl [Wellbutrin Sr] 150 mg PO DAILY 03/15/19 03/15/19 03/14/19 08:00 History oxyCODONE /ACETAMINOPHEN [Percocet 1 tab PO BID PRN 03/15/19 03/15/19 Unknown History 5/325 mg] Acetaminophen [Acetaminophen TAB] 650 mg PO Q4H PRN tablet 03/16/19 Unknown Rx Furosemide [Lasix TAB] 20 mg PO QDAY #30 tablet 03/16/19 Unknown Rx Lactulose [Cephulac] 30 gm PO TID #20 oral.liqd 03/16/19 Unknown Rx Magnesium Hydroxide [Milk of 30 ml PO Q4H PRN oral.liqd 03/16/19 Unknown Rx Magnesia] Nadolol [Corgard] 20 mg PO QDAY tablet 03/16/19 Unknown Rx Nadolol [Corgard] 20 mg PO QDAY #30 tablet 03/16/19 Unknown Rx Rifaximin [Xifaxan] 550 mg PO BID #20 tablet 03/16/19 Unknown Rx Sennosides Tab [Senokot] 8.6 mg PO Q12HR #30 tablet 03/16/19 Unknown Rx buPROPion [Wellbutrin] 150 mg PO DAILY tablet 03/16/19 Unknown Rx oxyCODONE /ACETAMINOPHEN [Percocet 1 tab PO BID PRN #60 tablet 03/16/19 Unknown Rx 5/325 mg] Cyclobenzaprine [Flexeril] 10 mg PO TID PRN #15 tablet 04/11/19 Unknown Rx Promethazine [Phenergan] 25 mg PO Q8HR PRN #15 tab 04/11/19 Unknown Rx ED Physical Exam - General Limitations: No Limitations - Other Other exam information: Gen.: No acute distress Head: Atraumatic Eyes: Normal appearance ENT: Moist mucous membranes Neck: Normal appearance, no posterior midline tenderness, no meningismus Chest: Clear to auscultation bilaterally Cardiovascular: Regular rate and rhythm Abdomen: Normal appearance, soft, nontender, no rebound or guarding, normal bowel sounds Back: Normal appearance, nontender Extremity: Full range of motion, normal appearance Neuro: Alert oriented 3, clear speech, no focal motor or sensory deficit Psychiatric: Appropriate Skin: No rash ED Course Vital Signs 04/22/19 04/23/19 21:54 00:23 Temperature 98.0 F Pulse Rate 72 66 Respiratory 16 14 Rate Blood Pressure 134/90 108/61 [Right] O2 Sat by Pulse 100 99 Oximetry - Lab Data Result diagrams: 04/22/19 22:50 04/22/19 22:50 Lab Results 04/22/19 04/22/19 04/22/19 Range/Units 22:50 22:50 22:50 WBC 5.9 (4.5-11.0) K/mm3 RBC 4.47 (3.65-5.03) M/mm3 Hgb 14.3 (10.1-14.3) gm/dl Hct 43.7 H (30.3-42.9) % MCV 98 H (79-97) fl MCH 32 (28-32) pg MCHC 33 (30-34) % RDW 16.1 H (13.2-15.2) % Plt Count 80 L (140-440) K/mm3 Lymph % (Auto) 36.1 H (13.4-35.0) % [place] % (Auto) 14.4 H (0.0-7.3) % Eos % (Auto) 4.1 (0.0-4.3) % Baso % (Auto) 1.0 (0.0-1.8) % Lymph # 2.1 (1.2-5.4) K/mm3 [place] # 0.8 (0.0-0.8) K/mm3 Eos # 0.2 (0.0-0.4) K/mm3 Baso # 0.1 (0.0-0.1) K/mm3 Seg Neutrophils % 44.4 (40.0-70.0) % Seg Neutrophils # 2.6 (1.8-7.7) K/mm3 Sodium 143 (137-145) mmol/L Potassium 4.7 (3.6-5.0) mmol/L Chloride 107.6 H (98-107) mmol/L Carbon Dioxide 25 (22-30) mmol/L Anion Gap 15 mmol/L BUN 24 H (7-17) mg/dL Creatinine 1.4 H (0.7-1.2) mg/dL Estimated GFR 39 ml/min BUN/Creatinine Ratio 17 % Glucose 101 H (65-100) mg/dL Lactic Acid 1.60 (0.7-2.0) mmol/L Calcium 9.1 (8.4-10.2) mg/dL Total Bilirubin 1.90 H (0.1-1.2) mg/dL Direct Bilirubin 0.6 H (0-0.2) mg/dL Indirect Bilirubin 1.3 mg/dL AST 45 H (5-40) units/L ALT 35 (7-56) units/L Alkaline Phosphatase 138 H (35-129) units/L Ammonia (25-60) umol/L Total Protein 7.4 (6.3-8.2) g/dL Albumin 3.3 L (3.9-5) g/dL Albumin/Globulin Ratio 0.8 % Plasma/Serum Alcohol (0-0.07) % 04/22/19 04/22/19 Range/Units 22:50 22:50 WBC (4.5-11.0) K/mm3 RBC (3.65-5.03) M/mm3 Hgb (10.1-14.3) gm/dl Hct (30.3-42.9) % MCV (79-97) fl MCH (28-32) pg MCHC (30-34) % RDW (13.2-15.2) % Plt Count (140-440) K/mm3 Lymph % (Auto) (13.4-35.0) % [place] % (Auto) (0.0-7.3) % Eos % (Auto) (0.0-4.3) % Baso % (Auto) (0.0-1.8) % Lymph # (1.2-5.4) K/mm3 [place] # (0.0-0.8) K/mm3 Eos # (0.0-0.4) K/mm3 Baso # (0.0-0.1) K/mm3 Seg Neutrophils % (40.0-70.0) % Seg Neutrophils # (1.8-7.7) K/mm3 Sodium (137-145) mmol/L Potassium (3.6-5.0) mmol/L Chloride (98-107) mmol/L Carbon Dioxide (22-30) mmol/L Anion Gap mmol/L BUN (7-17) mg/dL Creatinine (0.7-1.2) mg/dL Estimated GFR ml/min BUN/Creatinine Ratio % Glucose (65-100) mg/dL Lactic Acid (0.7-2.0) mmol/L Calcium (8.4-10.2) mg/dL Total Bilirubin (0.1-1.2) mg/dL Direct Bilirubin (0-0.2) mg/dL Indirect Bilirubin mg/dL AST (5-40) units/L ALT (7-56) units/L Alkaline Phosphatase (35-129) units/L Ammonia 143.0 H (25-60) umol/L Total Protein (6.3-8.2) g/dL Albumin (3.9-5) g/dL Albumin/Globulin Ratio % Plasma/Serum Alcohol < 0.01 (0-0.07) % - Radiology Data Radiology results: report reviewed CT head/brain wo con INDICATION: Altered Mental Status. TECHNIQUE: Routine CT head without contrast. All CT scans at this location are performed using CT dose reduction for ALARA by means of automated exposure control. COMPARISON: CT head 04/22/2018 FINDINGS: BRAIN / INTRACRANIAL CONTENTS: No acute hemorrhage, mass effect, midline shift, or hydrocephalus. No appreciable acute large territorial or lacunar infarct. ORBITS: No significant abnormality of visualized orbits. SINUSES / MASTOIDS: No significant abnormality of visualized sinuses and mastoid air cells. ADDITIONAL FINDINGS: None. IMPRESSION: 1. No acute intracranial abnormality. - Medical Decision Making Patient is a nonfocal neuro exam. She provided a urine sample that looks like water but insists that she urinated in the cup. CT head unremarkable. Ammonia level elevated despite patient's insistence of compliance with lactulose. Patient will be admitted to the hospitalist service for further treatment. Lactulose provided in the ED. - Differential Diagnosis hepatic encephalopathy, dehydration, intracerebral hemorrhage Critical Care Time: No Critical care attestation.: If time is entered above; I have spent that time in minutes in the direct care of this critically ill patient, excluding procedure time. ED Disposition Clinical Impression: Acute hepatic encephalopathy, Liver cirrhosis Disposition: OP ADMIT IP TO THIS HOSP Is pt being admited?: Yes Condition: Stable Time of Disposition: 00:33 (Dr Null/hosp)
[2019-04-23] MEDS ORDERED: CYCLOBENZAPRINE 10 MG TAB PO PRN (01:56)
[2019-04-23] MEDS ORDERED: ACETAMINOPHEN 325 MG TAB PO PRN (01:56)
[2019-04-23] MEDS ORDERED: PROMETHAZINE 25 MG RECT SUPP PR PRN (01:59)
--- NOTE | 2019-04-23 02:38 | History and Physical Report ---
History of Present Illness Chief complaint: confusion History of present illness: 54-year-old woman with history of liver cirrhosis, cholelithiasis. Who was supposed to follow-up at [facility]. States that she did not follow-up. She was brought by family members specifically her daughter because she was increasingly confused. Patient states that she takes her lactulose 3 times a day. She is complaining that she has not been able to get her rifaximin because her insurance stopped covering it, also she was unable to get a follow-up appointment at [facility]. She did have one episode of vomiting earlier. She has been confused in the ER roaming around, patient is aware that she is confused and is aware that she is having trouble finding her thoughts. Denies fever, denies dysuria, denies any other symptoms. Past Medical History: hepatitis, liver disease, other (cirrhosis, varices) Past Surgical History: Other (Dx laparoscopy. Removal of scar tissue around fallopian tubes) Social history: no significant social history Family history: no significant family history Medications and Allergies Allergies Allergy/AdvReac Type Severity Reaction Status Date / Time Sulfa (Sulfonamide AdvReac Rash Verified 05/20/14 14:37 Antibiotics) Home Medications Medication Instructions Recorded Confirmed Last Taken Type Omeprazole 20 mg PO QDAY 02/19/18 03/15/19 Unknown History Ondansetron [Zofran Odt] 4 mg PO Q4H PRN 02/19/18 03/15/19 Unknown History Potassium Chloride [K-Dur] 10 meq PO QDAY #14 tablet 02/21/18 03/15/19 Unknown Rx Rifaximin [Xifaxan] 550 mg PO BID #60 tablet 02/21/18 03/15/19 03/04/19 08:00 Rx Lactulose 30 gm PO TID 03/15/19 03/15/19 Unknown History Spironolactone [Aldactone] 50 mg PO QDAY 03/15/19 03/15/19 03/14/19 08:00 History buPROPion HCl [Wellbutrin Sr] 150 mg PO DAILY 03/15/19 03/15/19 03/14/19 08:00 History oxyCODONE /ACETAMINOPHEN [Percocet 1 tab PO BID PRN 03/15/19 03/15/19 Unknown History 5/325 mg] Acetaminophen [Acetaminophen TAB] 650 mg PO Q4H PRN tablet 03/16/19 Unknown Rx Furosemide [Lasix TAB] 20 mg PO QDAY #30 tablet 03/16/19 Unknown Rx Lactulose [Cephulac] 30 gm PO TID #20 oral.liqd 03/16/19 Unknown Rx Magnesium Hydroxide [Milk of 30 ml PO Q4H PRN oral.liqd 03/16/19 Unknown Rx Magnesia] Nadolol [Corgard] 20 mg PO QDAY tablet 03/16/19 Unknown Rx Nadolol [Corgard] 20 mg PO QDAY #30 tablet 03/16/19 Unknown Rx Rifaximin [Xifaxan] 550 mg PO BID #20 tablet 03/16/19 Unknown Rx Sennosides Tab [Senokot] 8.6 mg PO Q12HR #30 tablet 03/16/19 Unknown Rx buPROPion [Wellbutrin] 150 mg PO DAILY tablet 03/16/19 Unknown Rx oxyCODONE /ACETAMINOPHEN [Percocet 1 tab PO BID PRN #60 tablet 03/16/19 Unknown Rx 5/325 mg] Cyclobenzaprine [Flexeril] 10 mg PO TID PRN #15 tablet 04/11/19 Unknown Rx Promethazine [Phenergan] 25 mg PO Q8HR PRN #15 tab 04/11/19 Unknown Rx Active Meds: Active Medications Acetaminophen (Tylenol) 650 mg PO Q4H PRN PRN Reason: Pain MILD(1-3)/Fever >100.5/ROCHA Bupropion HCl (Wellbutrin) 150 mg PO DAILY [facility] Bupropion HCl (Wellbutrin Sr) 150 mg PO DAILY [facility] Cyclobenzaprine HCl (Flexeril) 10 mg PO TID PRN PRN Reason: Muscle Spasm Enoxaparin Sodium (Lovenox) 40 mg SUB-Q QDAY [facility] Sodium Chloride (Nacl 0.45% 1000 Ml) 1,000 mls @ 125 mls/hr IV DIRECT [facility] Stop: 04/24/19 02:59 Lactulose (Cephulac) 30 gm PO TID DONN Miscellaneous Medication (Omeprazole [Omeprazole]) 20 mg PO QDAY DONN Nadolol (Corgard) 20 mg PO QDAY DONN Ondansetron HCl (Zofran) 4 mg IV Q8H PRN PRN Reason: Nausea And Vomiting Oxycodone/Acetaminophen (Percocet 5/325) 1 tab PO BID PRN PRN Reason: Pain Promethazine HCl (Phenergan) 25 mg UT Q6H PRN PRN Reason: N/V IF NPO AND NO IV ACCESS Rifaximin (Xifaxan) 550 mg PO BID DONN Senna (Senokot) 8.6 mg PO Q12H DONN Sodium Chloride (Sodium Chloride Flush Syringe 10 Ml) 10 ml IV BID DONN Sodium Chloride (Sodium Chloride Flush Syringe 10 Ml) 10 ml IV PRN PRN PRN Reason: LINE FLUSH Review of Systems ROS unobtainable: due to mental status Exam - Constitutional Vitals: Temp Pulse Resp BP Pulse Ox 98.0 F 66 14 108/61 99 04/22/19 21:54 04/23/19 00:23 04/23/19 00:23 04/23/19 00:23 04/23/19 00:23 General appearance: Present: no acute distress, well-nourished - EENT Eyes: Present: PERRL ENT: hearing intact, clear oral mucosa - Neck Neck: Present: supple, normal ROM - Respiratory Respiratory effort: normal Respiratory: bilateral: CTA - Cardiovascular Heart Sounds: Present: S1 & S2. Absent: rub, click - Extremities Extremities: pulses symmetrical, No edema Peripheral Pulses: within normal limits - Abdominal General gastrointestinal: Present: soft, non-tender, non-distended, normal bowel sounds Female genitourinary: Present: normal - Integumentary Integumentary: Present: clear, warm, dry - Musculoskeletal Musculoskeletal: gait normal, strength equal bilaterally - Psychiatric Psychiatric: appropriate mood/affect, other (oriented x3, but confused) - Neurologic Neurologic: CNII-XII intact, moves all extremities Results - Labs CBC & Chem 7: 04/22/19 22:50 04/22/19 22:50 Labs: Laboratory Last Values WBC 5.9 K/mm3 (4.5-11.0) 04/22/19 22:50 RBC 4.47 M/mm3 (3.65-5.03) 04/22/19 22:50 Hgb 14.3 gm/dl (10.1-14.3) 04/22/19 22:50 Hct 43.7 % (30.3-42.9) H 04/22/19 22:50 MCV 98 fl (79-97) H 04/22/19 22:50 MCH 32 pg (28-32) 04/22/19 22:50 MCHC 33 % (30-34) 04/22/19 22:50 RDW 16.1 % (13.2-15.2) H 04/22/19 22:50 Plt Count 80 K/mm3 (140-440) L 04/22/19 22:50 Lymph % (Auto) 36.1 % (13.4-35.0) H 04/22/19 22:50 [place] % (Auto) 14.4 % (0.0-7.3) H 04/22/19 22:50 Eos % (Auto) 4.1 % (0.0-4.3) 04/22/19 22:50 Baso % (Auto) 1.0 % (0.0-1.8) 04/22/19 22:50 Lymph # 2.1 K/mm3 (1.2-5.4) 04/22/19 22:50 [place] # 0.8 K/mm3 (0.0-0.8) 04/22/19 22:50 Eos # 0.2 K/mm3 (0.0-0.4) 04/22/19 22:50 Baso # 0.1 K/mm3 (0.0-0.1) 04/22/19 22:50 Seg Neutrophils % 44.4 % (40.0-70.0) 04/22/19 22:50 Seg Neutrophils # 2.6 K/mm3 (1.8-7.7) 04/22/19 22:50 Sodium 143 mmol/L (137-145) 04/22/19 22:50 Potassium 4.7 mmol/L (3.6-5.0) 04/22/19 22:50 Chloride 107.6 mmol/L (98-107) H 04/22/19 22:50 Carbon Dioxide 25 mmol/L (22-30) 04/22/19 22:50 15 mmol/L 04/22/19 22:50 BUN 24 mg/dL (7-17) H 04/22/19 22:50 1.4 mg/dL (0.7-1.2) H 04/22/19 22:50 Estimated GFR 39 ml/min 04/22/19 22:50 17 % 04/22/19 22:50 Glucose 101 mg/dL (65-100) H 04/22/19 22:50 Lactic Acid 1.60 mmol/L (0.7-2.0) 04/22/19 22:50 Calcium 9.1 mg/dL (8.4-10.2) 04/22/19 22:50 1.90 mg/dL (0.1-1.2) H 04/22/19 22:50 0.6 mg/dL (0-0.2) H 04/22/19 22:50 1.3 mg/dL 04/22/19 22:50 AST 45 units/L (5-40) H 04/22/19 22:50 ALT 35 units/L (7-56) 04/22/19 22:50 138 units/L (35-129) H 04/22/19 22:50 143.0 umol/L (25-60) H 04/22/19 22:50 7.4 g/dL (6.3-8.2) 04/22/19 22:50 3.3 g/dL (3.9-5) L 04/22/19 22:50 0.8 % 04/22/19 22:50 Plasma/Serum Alcohol < 0.01 % (0-0.07) 04/22/19 22:50 - Imaging and Cardiology CT Scan - head: image reviewed (. No acute intracranial abnormality.) Assessment and Plan Assessment and plan: 54F with hx of CLD , hepatic encephalopathy on lactulose at home, who states that she wasn't able to fill her rifaximin due to insurance issues. Brought in by daughter for increasing confusion Past Medical History: hepatitis, liver disease, other (cirrhosis, varices) Hepatic encephalopathy, decompensated liver disease/portal hypertension cont lactulose, restart rifaxamin, CM consult to help apply for financial assistance from Rx manufacture -Nadolol, CAITIE due to vasomotor nephropathy --trial of IVF, nephrology consult -Diuretics on hold, was on Lasix and Aldactone {Please ignore first UA. It was tap water. Patient was confused and filled the cup with tap water. Specific gravity is 1 consistent with tap water, UA is to be repeated) dvt ppx- lovenox
[2019-04-23 02:49] LABS: Amphetamine Screen,Urine PRESUMPTIVE NEGATIVE; Benzodiazepines Screen,Urine PRESUMPTIVE NEGATIVE; Cannabinoid Screen,Urine PRESUMPTIVE NEGATIVE; Cocaine Screen,Urine PRESUMPTIVE NEGATIVE; Methadone Screen,Urine PRESUMPTIVE NEGATIVE; Opiate Screen,Urine PRESUMPTIVE NEGATIVE
[2019-04-23 02:51] LABS: Bilirubin,Urine NEG (Negative); Blood,Urine NEG (Negative); Color,Urine Colorless (Yellow); Protein,Urine <15 mg/dL mg/dL (Negative); Urobilinogen,Urine < 2.0 mg/dL (<2.0)
[2019-04-23 03:09] LABS: RBC,Urine < 1.0 /HPF (0.0-6.0); WBC,Urine < 1.0 /HPF (0.0-6.0)
[2019-04-23] MEDS ORDERED: SENNOSIDES 8.6 MG TAB PO SCH (06:00)
[2019-04-23] MEDS ORDERED: buPROPion 75 MG TAB PO SCH (10:00)
[2019-04-23] MEDS: SODIUM CHLORIDE 0.45% 1000 ML 1,000 ML IV SCH ×3 (10:46→22:14)
[2019-04-23] MEDS: PANTOPRAZOLE 20 MG TAB PO SCH (10:47)
[2019-04-23] MEDS: RIFAXIMIN 550 MG TAB PO SCH ×2 (10:47→22:14)
[2019-04-23] MEDS: ENOXAPARIN 40 MG/0.4 ML INJ SUB-Q SCH (10:47)
[2019-04-23] MEDS: LACTULOSE 20 GM/30 ML ORAL LIQD PO SCH ×3 (10:47→22:13)
--- NOTE | 2019-04-23 11:26 | Gastroenterology Consultation ---
<MARCIE UGARTE - Last Filed: 04/23/19 14:20> History of Present Illness - Reason for Consult Consult date: 04/23/19 hepatic failure Requesting physician: AIDA TROY - History of Present Illness Patient is a 54 y/o female with hx of cirrhosis, cholelithiasis (recent workup during hospitalization last month 02/2019 for RUQ abd pain with N/V; mild GB wall thickening but HIDA normal; treated conservatively with abx per surgery due to h igh risk with underlying ESLD/ascites/varices with recommendations for referral to hepatobiliary surgery for elective cholecystectomy if symptoms persist/worsen), depression, and substance abuse who presented to ED for evaluation of AMS/confusion to which GI has been consulted. Upon admission, ammonia level elevated at 138. Toxicology screen negative. Patient is well known to our service and was last seen in clinic on 03/27/[address] Rhodes. She has a known hx of decompensated cirrhosis 2/2 remote ETOH abuse complicated by ascites, HE, and varices (last EGD 05/201818 grade I EV;MELD 12; referred to [facility] for liver transplant workup but has not been seen as of yet). This morning patient was sitting up in bed w/o acute distress and noted to be A&O x 3 with mental status improved. Admits to intermittent continued RUQ pain and N/V after eating associated with known gallstones but no current abd pain. Denies fever, wt loss, CP, SOB, jaundice, or signs of bleeding. States she had been compliant with taking lactulose, nadalol, and diuretics at home but not taken xifaxan for ~1 month due to lack of insurance coverage/cost. No recent ETOH/substance abuse (UDS +amephetamines 2017) per pt report. Past History Past Medical History: other (as per HPI) Past Surgical History: Other (bladder) Social history: other (former smoker; former ETOH abuse) Medications and Allergies Allergies Allergy/AdvReac Type Severity Reaction Status Date / Time Sulfa (Sulfonamide AdvReac Rash Verified 05/20/14 14:37 Antibiotics) Home Medications Medication Instructions Recorded Confirmed Last Taken Type Omeprazole 20 mg PO QDAY 02/19/18 03/15/19 Unknown History Ondansetron [Zofran Odt] 4 mg PO Q4H PRN 02/19/18 03/15/19 Unknown History Potassium Chloride [K-Dur] 10 meq PO QDAY #14 tablet 02/21/18 03/15/19 Unknown Rx Rifaximin [Xifaxan] 550 mg PO BID #60 tablet 02/21/18 03/15/19 03/04/19 08:00 Rx Lactulose 30 gm PO TID 03/15/19 03/15/19 Unknown History Spironolactone [Aldactone] 50 mg PO QDAY 03/15/19 03/15/19 03/14/19 08:00 History buPROPion HCl [Wellbutrin Sr] 150 mg PO DAILY 03/15/19 03/15/19 03/14/19 08:00 History oxyCODONE /ACETAMINOPHEN [Percocet 1 tab PO BID PRN 03/15/19 03/15/19 Unknown History 5/325 mg] Acetaminophen [Acetaminophen TAB] 650 mg PO Q4H PRN tablet 03/16/19 Unknown Rx Furosemide [Lasix TAB] 20 mg PO QDAY #30 tablet 03/16/19 Unknown Rx Lactulose [Cephulac] 30 gm PO TID #20 oral.liqd 03/16/19 Unknown Rx Magnesium Hydroxide [Milk of 30 ml PO Q4H PRN oral.liqd 03/16/19 Unknown Rx Magnesia] Nadolol [Corgard] 20 mg PO QDAY tablet 03/16/19 Unknown Rx Nadolol [Corgard] 20 mg PO QDAY #30 tablet 03/16/19 Unknown Rx Rifaximin [Xifaxan] 550 mg PO BID #20 tablet 03/16/19 Unknown Rx Sennosides Tab [Senokot] 8.6 mg PO Q12HR #30 tablet 03/16/19 Unknown Rx buPROPion [Wellbutrin] 150 mg PO DAILY tablet 03/16/19 Unknown Rx oxyCODONE /ACETAMINOPHEN [Percocet 1 tab PO BID PRN #60 tablet 03/16/19 Unknown Rx 5/325 mg] Cyclobenzaprine [Flexeril] 10 mg PO TID PRN #15 tablet 04/11/19 Unknown Rx Promethazine [Phenergan] 25 mg PO Q8HR PRN #15 tab 04/11/19 Unknown Rx Active Meds: Active Medications Acetaminophen (Tylenol) 650 mg PO Q4H PRN PRN Reason: Pain MILD(1-3)/Fever >100.5/ROCHA Bupropion HCl (Wellbutrin Sr) 150 mg PO DAILY [facility] Cyclobenzaprine HCl (Flexeril) 10 mg PO TID PRN PRN Reason: Muscle Spasm Enoxaparin Sodium (Lovenox) 40 mg SUB-Q QDAY [facility] Last Admin: 04/23/19 10:47 Dose: 40 mg Documented by: Sodium Chloride (Nacl 0.45% 1000 Ml) 1,000 mls @ 125 mls/hr IV DIRECT [facility] Stop: 04/24/19 02:59 Last Admin: 04/23/19 10:46 Dose: 125 mls/hr Documented by: Lactulose (Cephulac) 30 gm PO TID [facility] Last Admin: 04/23/19 10:47 Dose: 30 gm Documented by: Nadolol (Corgard) 20 mg PO QDAY [facility] Ondansetron HCl (Zofran) 4 mg IV Q8H PRN PRN Reason: Nausea And Vomiting Oxycodone/Acetaminophen (Percocet 5/325) 1 tab PO BID PRN PRN Reason: Pain Pantoprazole Sodium (Protonix) 20 mg PO QDAY [facility] Last Admin: 04/23/19 10:47 Dose: 20 mg Documented by: Promethazine HCl (Phenergan) 25 mg NE Q6H PRN PRN Reason: N/V IF NPO AND NO IV ACCESS Rifaximin (Xifaxan) 550 mg PO BID [facility] Last Admin: 04/23/19 10:47 Dose: 550 mg Documented by: Sodium Chloride (Sodium Chloride Flush Syringe 10 Ml) 10 ml IV BID [facility] Last Admin: 04/23/19 10:48 Dose: 10 ml Documented by: Sodium Chloride (Sodium Chloride Flush Syringe 10 Ml) 10 ml IV PRN PRN PRN Reason: LINE FLUSH medications reviewed/updated as required Review of Systems - Review of Systems All systems: negative Neurological: other (AMS) Exam - Constitutional Vital Signs: Temp Pulse Resp BP Pulse Ox 97.4 F L 75 22 129/72 99 04/23/19 10:23 04/23/19 10:23 04/23/19 10:23 04/23/19 10:23 04/23/19 10:23 General appearance: no acute distress - EENT Eyes: PERRL, EOM intact ENT: hearing intact - Respiratory Respiratory effort: normal - Cardiovascular Rhythm: regular - Gastrointestinal General gastrointestinal: Present: soft, non-tender, non-distended, normal bowel sounds - Neurologic Neurological: alert and oriented x3 - Labs CBC & Chem 7: 04/22/19 22:50 04/22/19 22:50 Lab Results: Laboratory Results - last 24 hr 04/22/19 04/22/19 04/22/19 22:50 22:50 22:50 WBC 5.9 RBC 4.47 Hgb 14.3 Hct 43.7 H MCV 98 H MCH 32 MCHC 33 RDW 16.1 H Plt Count 80 L Lymph % (Auto) 36.1 H [place] % (Auto) 14.4 H Eos % (Auto) 4.1 Baso % (Auto) 1.0 Lymph # 2.1 [place] # 0.8 Eos # 0.2 Baso # 0.1 Seg Neutrophils % 44.4 Seg Neutrophils # 2.6 Sodium 143 Potassium 4.7 Chloride 107.6 H Carbon Dioxide 25 Anion Gap 15 BUN 24 H Creatinine 1.4 H Estimated GFR 39 BUN/Creatinine Ratio 17 Glucose 101 H Lactic Acid 1.60 Calcium 9.1 Total Bilirubin 1.90 H Direct Bilirubin 0.6 H Indirect Bilirubin 1.3 AST 45 H ALT 35 Alkaline Phosphatase 138 H Ammonia Total Protein 7.4 Albumin 3.3 L Albumin/Globulin Ratio 0.8 Urine Color Urine Turbidity Urine pH Ur Specific [place] Urine Protein Urine Glucose (UA) Urine Ketones Urine Blood Urine Nitrite Urine Bilirubin Urine Urobilinogen Ur Leukocyte Esterase Urine WBC (Auto) Urine RBC (Auto) U Epithel Cells (Auto) Urine Opiates Screen Urine Methadone Screen Ur Barbiturates Screen Ur Phencyclidine Scrn Ur Amphetamines Screen U Benzodiazepines Scrn Urine Cocaine Screen U Marijuana (THC) Screen Drugs of Abuse Note Plasma/Serum Alcohol 04/22/19 04/22/19 04/23/19 22:50 22:50 Unknown WBC RBC Hgb Hct MCV MCH MCHC RDW Plt Count Lymph % (Auto) [place] % (Auto) Eos % (Auto) Baso % (Auto) Lymph # [place] # Eos # Baso # Seg Neutrophils % Seg Neutrophils # Sodium Potassium Chloride Carbon Dioxide Anion Gap BUN Creatinine Estimated GFR BUN/Creatinine Ratio Glucose Lactic Acid Calcium Total Bilirubin Direct Bilirubin Indirect Bilirubin AST ALT Alkaline Phosphatase Ammonia 143.0 H Total Protein Albumin Albumin/Globulin Ratio Urine Color Colorless Urine Turbidity Clear Urine pH 6.0 Ur Specific [place] 1.000 L Urine Protein <15 mg/dl Urine Glucose (UA) Neg Urine Ketones Neg Urine Blood Neg Urine Nitrite Neg Urine Bilirubin Neg Urine Urobilinogen < 2.0 Ur Leukocyte Esterase Neg Urine WBC (Auto) < 1.0 Urine RBC (Auto) < 1.0 U Epithel Cells (Auto) < 1.0 Urine Opiates Screen Urine Methadone Screen Ur Barbiturates Screen Ur Phencyclidine Scrn Ur Amphetamines Screen U Benzodiazepines Scrn Urine Cocaine Screen U Marijuana (THC) Screen Drugs of Abuse Note Plasma/Serum Alcohol < 0.01 04/23/19 Unknown WBC RBC Hgb Hct MCV MCH MCHC RDW Plt Count Lymph % (Auto) [place] % (Auto) Eos % (Auto) Baso % (Auto) Lymph # [place] # Eos # Baso # Seg Neutrophils % Seg Neutrophils # Sodium Potassium Chloride Carbon Dioxide Anion Gap BUN Creatinine Estimated GFR BUN/Creatinine Ratio Glucose Lactic Acid Calcium Total Bilirubin Direct Bilirubin Indirect Bilirubin AST ALT Alkaline Phosphatase Ammonia Total Protein Albumin Albumin/Globulin Ratio Urine Color Urine Turbidity Urine pH Ur Specific [place] Urine Protein Urine Glucose (UA) Urine Ketones Urine Blood Urine Nitrite Urine Bilirubin Urine Urobilinogen Ur Leukocyte Esterase Urine WBC (Auto) Urine RBC (Auto) U Epithel Cells (Auto) Urine Opiates Screen Presumptive negative Urine Methadone Screen Presumptive negative Ur Barbiturates Screen Presumptive negative Ur Phencyclidine Scrn Presumptive negative Ur Amphetamines Screen Presumptive negative U Benzodiazepines Scrn Presumptive negative Urine Cocaine Screen Presumptive negative U Marijuana (THC) Screen Presumptive negative Drugs of Abuse Note Disclamer Plasma/Serum Alcohol Assessment and Plan 1.hepatic encephalopathy 2.cirrhosis -afebrile -WBC WNL -H/H WNL- no active signs of bleeding -LFTs stable compared to previous -ammonia 143 on admission -last EGD 05/2018-grade I EV -etiology- patient with hx of decompensated cirrhosis 2/2 remote ETOH abuse complicated by ascites, HE, and varices who presented with AMS after being off xifaxan x ~1 month -clinically, patient is stable with encephalopathy now improved. A&O x 3 upon exam. Denies currant abd pain, N/V, or signs of bleeding (has intermittent symptoms of RUQ pain with N/V due to known gallstones; see HPI) -continue lactulose (titreate to goal of BMs x 2-3/day) -continue xifaxan -continue nadalol -resume home diuretics (lasix/aldactone) when okay with nephrology -advance diet as tolerated (low sodium) -continue to trend labs and supportive care -continued alcohol/substance abstinence -if labs stable in am and tolerating PO, okay to be d/c per GI standpoint with f/u in clinic for further management <AMEENA SNOW - Last Filed: 04/23/19 18:49> Medications and Allergies Active Meds: Active Medications Acetaminophen (Tylenol) 650 mg PO Q4H PRN PRN Reason: Pain MILD(1-3)/Fever >100.5/ROCHA Bupropion HCl (Wellbutrin Sr) 150 mg PO DAILY [facility] Last Admin: 04/23/19 15:59 Dose: 150 mg Documented by: Cyclobenzaprine HCl (Flexeril) 10 mg PO TID PRN PRN Reason: Muscle Spasm Enoxaparin Sodium (Lovenox) 40 mg SUB-Q QDAY [facility] Last Admin: 04/23/19 10:47 Dose: 40 mg Documented by: Sodium Chloride (Nacl 0.45% 1000 Ml) 1,000 mls @ 125 mls/hr IV DIRECT [facility] Stop: 04/24/19 02:59 Last Admin: 04/23/19 16:00 Dose: 125 mls/hr Documented by: Lactulose (Cephulac) 30 gm PO TID [facility] Last Admin: 04/23/19 15:59 Dose: 30 gm Documented by: Nadolol (Corgard) 20 mg PO QDAY [facility] Last Admin: 04/23/19 15:59 Dose: 20 mg Documented by: Ondansetron HCl (Zofran) 4 mg IV Q8H PRN PRN Reason: Nausea And Vomiting Oxycodone/Acetaminophen (Percocet 5/325) 1 tab PO BID PRN PRN Reason: Pain Pantoprazole Sodium (Protonix) 20 mg PO QDAY [facility] Last Admin: 04/23/19 10:47 Dose: 20 mg Documented by: Promethazine HCl (Phenergan) 25 mg NE Q6H PRN PRN Reason: N/V IF NPO AND NO IV ACCESS Rifaximin (Xifaxan) 550 mg PO BID [facility] Last Admin: 04/23/19 10:47 Dose: 550 mg Documented by: Sodium Chloride (Sodium Chloride Flush Syringe 10 Ml) 10 ml IV BID [facility] Last Admin: 04/23/19 10:48 Dose: 10 ml Documented by: Sodium Chloride (Sodium Chloride Flush Syringe 10 Ml) 10 ml IV PRN PRN PRN Reason: LINE FLUSH Exam - Constitutional Vital Signs: Temp Pulse Resp BP Pulse Ox 98.0 F 73 18 145/81 100 04/23/19 17:31 04/23/19 17:31 04/23/19 17:31 04/23/19 17:31 04/23/19 17:31 - Labs CBC & Chem 7: 04/22/19 22:50 04/22/19 22:50 Lab Results: Laboratory Results - last 24 hr 04/22/19 04/22/19 04/22/19 22:50 22:50 22:50 WBC 5.9 RBC 4.47 Hgb 14.3 Hct 43.7 H MCV 98 H MCH 32 MCHC 33 RDW 16.1 H Plt Count 80 L Lymph % (Auto) 36.1 H [place] % (Auto) 14.4 H Eos % (Auto) 4.1 Baso % (Auto) 1.0 Lymph # 2.1 [place] # 0.8 Eos # 0.2 Baso # 0.1 Seg Neutrophils % 44.4 Seg Neutrophils # 2.6 Sodium 143 Potassium 4.7 Chloride 107.6 H Carbon Dioxide 25 Anion Gap 15 BUN 24 H Creatinine 1.4 H Estimated GFR 39 BUN/Creatinine Ratio 17 Glucose 101 H Lactic Acid 1.60 Calcium 9.1 Total Bilirubin 1.90 H Direct Bilirubin 0.6 H Indirect Bilirubin 1.3 AST 45 H ALT 35 Alkaline Phosphatase 138 H Ammonia Total Protein 7.4 Albumin 3.3 L Albumin/Globulin Ratio 0.8 Urine Color Urine Turbidity Urine pH Ur Specific [place] Urine Protein Urine Glucose (UA) Urine Ketones Urine Blood Urine Nitrite Urine Bilirubin Urine Urobilinogen Ur Leukocyte Esterase Urine WBC (Auto) Urine RBC (Auto) U Epithel Cells (Auto) Urine Opiates Screen Urine Methadone Screen Ur Barbiturates Screen Ur Phencyclidine Scrn Ur Amphetamines Screen U Benzodiazepines Scrn Urine Cocaine Screen U Marijuana (THC) Screen Drugs of Abuse Note Plasma/Serum Alcohol 04/22/19 04/22/19 04/23/19 22:50 22:50 Unknown WBC RBC Hgb Hct MCV MCH MCHC RDW Plt Count Lymph % (Auto) [place] % (Auto) Eos % (Auto) Baso % (Auto) Lymph # [place] # Eos # Baso # Seg Neutrophils % Seg Neutrophils # Sodium Potassium Chloride Carbon Dioxide Anion Gap BUN Creatinine Estimated GFR BUN/Creatinine Ratio Glucose Lactic Acid Calcium Total Bilirubin Direct Bilirubin Indirect Bilirubin AST ALT Alkaline Phosphatase Ammonia 143.0 H Total Protein Albumin Albumin/Globulin Ratio Urine Color Colorless Urine Turbidity Clear Urine pH 6.0 Ur Specific [place] 1.000 L Urine Protein <15 mg/dl Urine Glucose (UA) Neg Urine Ketones Neg Urine Blood Neg Urine Nitrite Neg Urine Bilirubin Neg Urine Urobilinogen < 2.0 Ur Leukocyte Esterase Neg Urine WBC (Auto) < 1.0 Urine RBC (Auto) < 1.0 U Epithel Cells (Auto) < 1.0 Urine Opiates Screen Urine Methadone Screen Ur Barbiturates Screen Ur Phencyclidine Scrn Ur Amphetamines Screen U Benzodiazepines Scrn Urine Cocaine Screen U Marijuana (THC) Screen Drugs of Abuse Note Plasma/Serum Alcohol < 0.01 04/23/19 Unknown WBC RBC Hgb Hct MCV MCH MCHC RDW Plt Count Lymph % (Auto) [place] % (Auto) Eos % (Auto) Baso % (Auto) Lymph # [place] # Eos # Baso # Seg Neutrophils % Seg Neutrophils # Sodium Potassium Chloride Carbon Dioxide Anion Gap BUN Creatinine Estimated GFR BUN/Creatinine Ratio Glucose Lactic Acid Calcium Total Bilirubin Direct Bilirubin Indirect Bilirubin AST ALT Alkaline Phosphatase Ammonia Total Protein Albumin Albumin/Globulin Ratio Urine Color Urine Turbidity Urine pH Ur Specific [place] Urine Protein Urine Glucose (UA) Urine Ketones Urine Blood Urine Nitrite Urine Bilirubin Urine Urobilinogen Ur Leukocyte Esterase Urine WBC (Auto) Urine RBC (Auto) U Epithel Cells (Auto) Urine Opiates Screen Presumptive negative Urine Methadone Screen Presumptive negative Ur Barbiturates Screen Presumptive negative Ur Phencyclidine Scrn Presumptive negative Ur Amphetamines Screen Presumptive negative U Benzodiazepines Scrn Presumptive negative Urine Cocaine Screen Presumptive negative U Marijuana (THC) Screen Presumptive negative Drugs of Abuse Note Disclamer Plasma/Serum Alcohol Assessment and Plan patient seen and examined, agree with IRMA's assessment and eval, patient clinically doing much better today, no asterixis, safe for DC with OPD followup from GI standpoint as long as labs stable - Patient Problems (1) Acute hepatic encephalopathy Current Visit: Yes Status: Acute
--- NOTE | 2019-04-23 13:45 | Consultation ---
History of Present Illness - Reason for Consult acute renal failure - History of Present Illness 54 y/o F with h/o EtOH induced liver cirrhosis presented to the ED secondary to altered mental status, with elevated serum ammonia levels. Per patient, she has not been receiving rifaximin due to insurance. Per patient she has also been experiencing symptoms of nausea, intermittent vomiting and poor overall appetite that had been worsening over the past 2-3 weeks. Nephrology consulted secondary to CAITIE seen on initial labs. Past History Past Medical History: hepatitis, liver disease, other (substance abuse ) Past Surgical History: Other (laproscopy ) Social history: lives with family, other (h/o of ETOH abuse ) Family history: hypertension Medications and Allergies Allergies Allergy/AdvReac Type Severity Reaction Status Date / Time Sulfa (Sulfonamide AdvReac Rash Verified 05/20/14 14:37 Antibiotics) Home Medications Medication Instructions Recorded Confirmed Last Taken Type Omeprazole 20 mg PO QDAY 02/19/18 03/15/19 Unknown History Ondansetron [Zofran Odt] 4 mg PO Q4H PRN 02/19/18 03/15/19 Unknown History Potassium Chloride [K-Dur] 10 meq PO QDAY #14 tablet 02/21/18 03/15/19 Unknown Rx Rifaximin [Xifaxan] 550 mg PO BID #60 tablet 02/21/18 03/15/19 03/04/19 08:00 Rx Lactulose 30 gm PO TID 03/15/19 03/15/19 Unknown History Spironolactone [Aldactone] 50 mg PO QDAY 03/15/19 03/15/19 03/14/19 08:00 History buPROPion HCl [Wellbutrin Sr] 150 mg PO DAILY 03/15/19 03/15/19 03/14/19 08:00 History oxyCODONE /ACETAMINOPHEN [Percocet 1 tab PO BID PRN 03/15/19 03/15/19 Unknown History 5/325 mg] Acetaminophen [Acetaminophen TAB] 650 mg PO Q4H PRN tablet 03/16/19 Unknown Rx Furosemide [Lasix TAB] 20 mg PO QDAY #30 tablet 03/16/19 Unknown Rx Lactulose [Cephulac] 30 gm PO TID #20 oral.liqd 03/16/19 Unknown Rx Magnesium Hydroxide [Milk of 30 ml PO Q4H PRN oral.liqd 03/16/19 Unknown Rx Magnesia] Nadolol [Corgard] 20 mg PO QDAY tablet 03/16/19 Unknown Rx Nadolol [Corgard] 20 mg PO QDAY #30 tablet 03/16/19 Unknown Rx Rifaximin [Xifaxan] 550 mg PO BID #20 tablet 03/16/19 Unknown Rx Sennosides Tab [Senokot] 8.6 mg PO Q12HR #30 tablet 03/16/19 Unknown Rx buPROPion [Wellbutrin] 150 mg PO DAILY tablet 03/16/19 Unknown Rx oxyCODONE /ACETAMINOPHEN [Percocet 1 tab PO BID PRN #60 tablet 03/16/19 Unknown Rx 5/325 mg] Cyclobenzaprine [Flexeril] 10 mg PO TID PRN #15 tablet 04/11/19 Unknown Rx Promethazine [Phenergan] 25 mg PO Q8HR PRN #15 tab 04/11/19 Unknown Rx Active Meds: Active Medications Acetaminophen (Tylenol) 650 mg PO Q4H PRN PRN Reason: Pain MILD(1-3)/Fever >100.5/ROCHA Bupropion HCl (Wellbutrin Sr) 150 mg PO DAILY [facility] Cyclobenzaprine HCl (Flexeril) 10 mg PO TID PRN PRN Reason: Muscle Spasm Enoxaparin Sodium (Lovenox) 40 mg SUB-Q QDAY [facility] Last Admin: 04/23/19 10:47 Dose: 40 mg Documented by: Sodium Chloride (Nacl 0.45% 1000 Ml) 1,000 mls @ 125 mls/hr IV DIRECT [facility] Stop: 04/24/19 02:59 Last Admin: 04/23/19 10:46 Dose: 125 mls/hr Documented by: Lactulose (Cephulac) 30 gm PO TID [facility] Last Admin: 04/23/19 10:47 Dose: 30 gm Documented by: Nadolol (Corgard) 20 mg PO QDAY [facility] Ondansetron HCl (Zofran) 4 mg IV Q8H PRN PRN Reason: Nausea And Vomiting Oxycodone/Acetaminophen (Percocet 5/325) 1 tab PO BID PRN PRN Reason: Pain Pantoprazole Sodium (Protonix) 20 mg PO QDAY [facility] Last Admin: 04/23/19 10:47 Dose: 20 mg Documented by: Promethazine HCl (Phenergan) 25 mg IA Q6H PRN PRN Reason: N/V IF NPO AND NO IV ACCESS Rifaximin (Xifaxan) 550 mg PO BID [facility] Last Admin: 04/23/19 10:47 Dose: 550 mg Documented by: Sodium Chloride (Sodium Chloride Flush Syringe 10 Ml) 10 ml IV BID [facility] Last Admin: 04/23/19 10:48 Dose: 10 ml Documented by: Sodium Chloride (Sodium Chloride Flush Syringe 10 Ml) 10 ml IV PRN PRN PRN Reason: LINE FLUSH Review of Systems All systems: negative Constitutional: fatigue, weakness, poor appetite Exam - Vital Signs Vital signs: Vital Signs Temp Pulse Resp BP Pulse Ox 98.0 F 72 16 134/90 100 04/22/19 21:54 04/22/19 21:54 04/22/19 21:54 04/22/19 21:54 04/22/19 21:54 - General Appearance General appearance: well-nourished, appears stated age EENT: ATNC, PERRL Neck: Present: neck supple, trachea midline Respiratory: Clear to Ascultation, Normal Exam Heart: regular, normal heart rate, S1S2 Gastrointestinal: Present: normal, normoactive bowel sounds Integumentary: no rash, warm and dry Neurologic: no focal deficit, alert and oriented x3 Psychiatric: mood/affect appropriate, cooperative Results - Lab Results 04/22/19 22:50 04/22/19 22:50 Most recent lab results Calcium 9.1 mg/dL (8.4-10.2) 04/22/19 22:50 Assessment and Plan - Patient Problems (1) Acute renal failure Current Visit: Yes Status: Acute Plan to address problem: Likely pre-renal in etiology. Hold off on diuretics and fluid hydration. Will monitor closely. R/O hepatorenal syndrome. Will also re-order UA that was not done, as well as renal US study. (2) Acute hepatic encephalopathy Current Visit: Yes Status: Acute Plan to address problem: Mental status much improved this am after receiving lactulose. Will continue to monitor. (3) History of cirrhosis of liver Current Visit: Yes Status: Acute Plan to address problem: Follow up further recs from GI.
--- NOTE | 2019-04-23 15:53 | Progress Note ---
Assessment and Plan Assessment and plan: Patient is a 54F with hx of hepatitis, cirrhosis with varices, anemia and hepatic encephalopathy on lactulose and Rifaximin at home who presented to [facility] ED who states that she wasn't able to fill her rifaximin due to insurance issues. Brought in by daughter for increasing confusion. {Please ignore first UA. It was tap water. Patient was confused and filled the cup with tap water and nursing sent off. Specific gravity is 1 consistent with tap water, UA is to be repeated) -Hepatic encephalopathy, decompensated liver disease/portal hypertension: cont lactulose, restart rifaxamin, CM consult to help apply for financial assistance from Rx manufacture, Nadolol, -CAITIE due to vasomotor nephropathy: nephrology consulted, input noted -Diuretics on hold, was on Lasix and Aldactone -DVT ppx- lovenox Disposition: continue inpatient care, once ammonia level stable will discharge, hopefully tomorrow. History Interval history: Patient was seen and examined. Follow-up on current diagnosis of AMS. No overnight events reported to me. Patient denies any chest pain, shortness breath, nausea/vomiting or severe headaches. Imaging, nursing note, chart, labs and old chart reviewed. Discussed with patient. Gen: WDWN, NAD, Awake, Alert, Orientated HEENT: NCAT, EOMI, PERRL, OP Clear Neck: supple, no adenopathy, no thyromegaly, no JVD CVS/Heart: RRR, normal S1S2, pulses present bilaterally Chest/Lungs: CTA B, Symmetrical chest expansion, good air entry bilaterally GI/Abdomen: soft, NT good bowel sounds, no guarding or rebound /Bladder: no suprapubic tenderness, no CVA or paraspinal tenderness Extermity/Skin: no c/c/e, no obvious rash MSK: FROM x 4 Neuro: CN 2-12 grossly intact, no new focal deficits Psych: calm Hospitalist Physical - Constitutional Vitals: Temp Pulse Resp BP Pulse Ox 97.9 F 80 18 144/85 100 04/23/19 12:10 04/23/19 12:10 04/23/19 12:10 04/23/19 12:10 04/23/19 12:10 General appearance: Present: no acute distress, well-nourished Results - Labs CBC & Chem 7: 04/22/19 22:50 04/22/19 22:50 Labs: Laboratory Last Values WBC 5.9 K/mm3 (4.5-11.0) 04/22/19 22:50 RBC 4.47 M/mm3 (3.65-5.03) 04/22/19 22:50 Hgb 14.3 gm/dl (10.1-14.3) 04/22/19 22:50 Hct 43.7 % (30.3-42.9) H 04/22/19 22:50 MCV 98 fl (79-97) H 04/22/19 22:50 MCH 32 pg (28-32) 04/22/19 22:50 MCHC 33 % (30-34) 04/22/19 22:50 RDW 16.1 % (13.2-15.2) H 04/22/19 22:50 Plt Count 80 K/mm3 (140-440) L 04/22/19 22:50 Lymph % (Auto) 36.1 % (13.4-35.0) H 04/22/19 22:50 [place] % (Auto) 14.4 % (0.0-7.3) H 04/22/19 22:50 Eos % (Auto) 4.1 % (0.0-4.3) 04/22/19 22:50 Baso % (Auto) 1.0 % (0.0-1.8) 04/22/19 22:50 Lymph # 2.1 K/mm3 (1.2-5.4) 04/22/19 22:50 Douglas # 0.8 K/mm3 (0.0-0.8) 04/22/19 22:50 Eos # 0.2 K/mm3 (0.0-0.4) 04/22/19 22:50 Baso # 0.1 K/mm3 (0.0-0.1) 04/22/19 22:50 Seg Neutrophils % 44.4 % (40.0-70.0) 04/22/19 22:50 Seg Neutrophils # 2.6 K/mm3 (1.8-7.7) 04/22/19 22:50 Sodium 143 mmol/L (137-145) 04/22/19 22:50 Potassium 4.7 mmol/L (3.6-5.0) 04/22/19 22:50 Chloride 107.6 mmol/L (98-107) H 04/22/19 22:50 Carbon Dioxide 25 mmol/L (22-30) 04/22/19 22:50 15 mmol/L 04/22/19 22:50 BUN 24 mg/dL (7-17) H 04/22/19 22:50 1.4 mg/dL (0.7-1.2) H 04/22/19 22:50 Estimated GFR 39 ml/min 04/22/19 22:50 17 % 04/22/19 22:50 Glucose 101 mg/dL (65-100) H 04/22/19 22:50 Lactic Acid 1.60 mmol/L (0.7-2.0) 04/22/19 22:50 Calcium 9.1 mg/dL (8.4-10.2) 04/22/19 22:50 1.90 mg/dL (0.1-1.2) H 04/22/19 22:50 0.6 mg/dL (0-0.2) H 04/22/19 22:50 1.3 mg/dL 04/22/19 22:50 AST 45 units/L (5-40) H 04/22/19 22:50 ALT 35 units/L (7-56) 04/22/19 22:50 138 units/L (35-129) H 04/22/19 22:50 143.0 umol/L (25-60) H 04/22/19 22:50 7.4 g/dL (6.3-8.2) 04/22/19 22:50 3.3 g/dL (3.9-5) L 04/22/19 22:50 0.8 % 04/22/19 22:50 Colorless (Yellow) 04/23/19 Unknown Clear (Clear) 04/23/19 Unknown 6.0 (5.0-7.0) 04/23/19 Unknown Ur Specific [place] 1.000 (1.003-1.030) L 04/23/19 Unknown <15 mg/dl mg/dL (Negative) 04/23/19 Unknown Neg mg/dL (Negative) 04/23/19 Unknown Neg mg/dL (Negative) 04/23/19 Unknown Neg (Negative) 04/23/19 Unknown Neg (Negative) 04/23/19 Unknown Neg (Negative) 04/23/19 Unknown < 2.0 mg/dL (<2.0) 04/23/19 Unknown Ur Leukocyte Esterase Neg (Negative) 04/23/19 Unknown < 1.0 /HPF (0.0-6.0) 04/23/19 Unknown < 1.0 /HPF (0.0-6.0) 04/23/19 Unknown U Epithel Cells (Auto) < 1.0 /HPF (0-13.0) 04/23/19 Unknown Presumptive negative 04/23/19 Unknown Presumptive negative 04/23/19 Unknown Ur Barbiturates Screen Presumptive negative 04/23/19 Unknown Ur Phencyclidine Scrn Presumptive negative 04/23/19 Unknown Ur Amphetamines Screen Presumptive negative 04/23/19 Unknown U Benzodiazepines Scrn Presumptive negative 04/23/19 Unknown Presumptive negative 04/23/19 Unknown U Marijuana (THC) Screen Presumptive negative 04/23/19 Unknown Disclamer 04/23/19 Unknown Plasma/Serum Alcohol < 0.01 % (0-0.07) 04/22/19 22:50 Active Medications - Current Medications Current Medications: Generic Name Dose Route Start Last Admin Trade Name Freq PRN Reason Stop Dose Admin Acetaminophen 650 mg 04/23/19 01:56 Tylenol PO Q4H PRN Pain MILD(1-3)/Fever >100.5/ROCHA Bupropion HCl 150 mg 04/23/19 10:00 Wellbutrin Sr PO DAILY DONN Cyclobenzaprine HCl 10 mg 04/23/19 01:56 Flexeril PO TID PRN Muscle Spasm Enoxaparin Sodium 40 mg 04/23/19 10:00 04/23/19 10:47 Lovenox SUB-Q 40 mg QDAY DONN Administration Sodium Chloride 1,000 mls @ 125 mls/hr 04/23/19 03:00 04/23/19 10:46 Nacl 0.45% 1000 Ml IV 04/24/19 02:59 125 mls/hr DIRECT DONN Administration Lactulose 30 gm 04/23/19 08:00 04/23/19 10:47 Cephulac PO 30 gm TID DONN Administration Nadolol 20 mg 04/23/19 10:00 Corgard PO QDAY DONN Ondansetron HCl 4 mg 04/23/19 01:59 Zofran IV Q8H PRN Nausea And Vomiting Oxycodone/Acetaminophen 1 tab 04/23/19 01:56 Percocet 5/325 PO BID PRN Pain Pantoprazole Sodium 20 mg 04/23/19 10:00 04/23/19 10:47 Protonix PO 20 mg QDAY DONN Administration Promethazine HCl 25 mg 04/23/19 01:59 Phenergan SC Q6H PRN N/V IF NPO AND NO IV ACCESS Rifaximin 550 mg 04/23/19 10:00 04/23/19 10:47 Xifaxan PO 550 mg BID DONN Administration Sodium Chloride 10 ml 04/23/19 10:00 04/23/19 10:48 Sodium Chloride Flush Syringe 10 Ml IV 10 ml BID DONN Administration Sodium Chloride 10 ml 04/23/19 01:59 Sodium Chloride Flush Syringe 10 Ml IV PRN PRN LINE FLUSH
[2019-04-23] MEDS: buPROPion SR 150 MG TAB PO SCH (15:59)
[2019-04-23] MEDS: NADOLOL 20 MG TAB PO SCH (15:59)
[2019-04-23] MEDS: ONDANSETRON 4 MG/2 ML INJ IV PRN (22:14)
[2019-04-24] MEDS: oxyCODONE /ACETAMINOPHEN 5-325MG TAB PO PRN ×2 (00:05→15:26)
[2019-04-24] MEDS ORDERED: LORazepam 2 MG/ML VIAL IV ONE (02:08)
[2019-04-24 04:42] LABS: Basophils % (Auto) 0.8 % (0.0-1.8); Eosinophils # (Auto) 0.1 K/mm3 (0.0-0.4); Eosinophils % (Auto) 0.9 % (0.0-4.3); Hematocrit 42.4 % (30.3-42.9); Hemoglobin 14.3 gm/dl (10.1-14.3); Lymphocytes % (Auto) 30.8 % (13.4-35.0); Mean Corpuscular HGB Conc 34 % (30-34); Mean Corpuscular Volume 97 fl (79-97); Monocytes # (Auto) 0.7 K/mm3 (0.0-0.8); Monocytes % (Auto) 10.4 % (0.0-7.3); Red Blood Count 4.39 M/mm3 (3.65-5.03); Red Cell Distribution Width 16.2 % (13.2-15.2)
[2019-04-24 04:47] LABS: Calcium 8.9 mg/dL (8.4-10.2); Hemolysis Index 12
[2019-04-24 04:53] LABS: INR 1.35 (0.87-1.13)
[2019-04-24 04:55] LABS: Platelet Count 72 K/mm3 (140-440)
[2019-04-24 05:12] LABS: Alanine Aminotransferase 36 units/L (7-56); Albumin 3.5 g/dL (3.9-5); BUN/Creatinine Ratio 19; Bilirubin,Direct 0.8 mg/dL (0-0.2); Blood Urea Nitrogen 15 mg/dL (7-17)
[2019-04-24] MEDS: ONDANSETRON 4 MG/2 ML INJ IV PRN ×2 (06:20→17:14)
[2019-04-24] MEDS: LACTULOSE 20 GM/30 ML ORAL LIQD PO SCH ×3 (08:49→21:13)
[2019-04-24] MEDS: RIFAXIMIN 550 MG TAB PO SCH ×2 (11:29→21:13)
[2019-04-24] MEDS: PANTOPRAZOLE 20 MG TAB PO SCH (11:30)
[2019-04-24] MEDS: ENOXAPARIN 40 MG/0.4 ML INJ SUB-Q SCH (11:32)
--- NOTE | 2019-04-24 11:40 | Gastroenterology Progress Note ---
<MARCIE UGARTE - Last Filed: 04/24/19 11:41> Assessment and Plan 1.hepatic encephalopathy 2.cirrhosis -H/H WNL- no active signs of bleeding -INR and LFTs stable compared to previous -ammonia 70-trending down -last EGD 05/2018-grade I EV -etiology- patient with hx of decompensated cirrhosis 2/2 remote ETOH abuse complicated by ascites, HE, and varices who presented with AMS after being off xifaxan x ~1 month -clinically, patient is stable with encephalopathy improved yesterday, however is somnlent this am after being given a dose of Ativan. -continue lactulose (titrate to goal of BMs x 2-3/day) -continue xifaxan -continue nadalol -resume home diuretics (lasix/aldactone) when okay with nephrology -avoid sedatives/hepatotoxic agents -advance diet as tolerated (low sodium) -continue to trend labs and supportive care -continued alcohol/substance abstinence -if labs stable in am and tolerating PO, okay to be d/c per GI standpoint with f/u in clinic for further management 3.cholelithiasis -afebrile -WBC WNL -patient with intermittent RUQ pain and N/v due to cholelithiasis but no evidence of acute cholecystitis -she had a recent extensive workup for symptoms lost month 02/2019 while hospitalized that revealed mild GB wall thickening but HIDA normal; treated conservatively with abx per surgery due to being high risk surgery candidate with underlying ESLD/ascites/varices with recommendations given for referral to hepatobiliary surgery for elective cholecystectomy to which patient has already been referred as outpatient but has not yet been seen -recommend f/u with hepatobiliary surgery as outpatient for further workup/evaluation upon discharge Subjective Date of service: 04/24/19 Principal diagnosis: hepatic encephalopathy Interval history: No acute distress. Patient noted to be somnolent this am after being given a dose of Ativan. C/o continued N/v. Objective - Constitutional Vitals: Temp Pulse Resp BP Pulse Ox 98.2 F 77 16 135/82 99 04/24/19 02:48 04/24/19 02:48 04/24/19 02:48 04/24/19 02:48 04/24/19 02:48 General appearance: no acute distress, other (somnolent) - EENT Eyes: PERRL, EOM intact ENT: hearing intact - Respiratory Respiratory effort: normal - Cardiovascular Rhythm: regular - Gastrointestinal General gastrointestinal: Present: soft, non-tender, non-distended, normal bowel sounds - Labs CBC & Chem 7: 04/24/19 04:17 04/24/19 04:17 Labs: Laboratory Results - last 24 hr 04/24/19 04/24/19 04/24/19 04:17 04:17 04:17 WBC 6.6 RBC 4.39 Hgb 14.3 Hct 42.4 MCV 97 MCH 33 H MCHC 34 RDW 16.2 H Plt Count 72 L Lymph % (Auto) 30.8 [place] % (Auto) 10.4 H Eos % (Auto) 0.9 Baso % (Auto) 0.8 Lymph # 2.0 [place] # 0.7 Eos # 0.1 Baso # 0.0 Seg Neutrophils % 57.1 Seg Neutrophils # 3.7 PT 16.3 H INR 1.35 H Sodium 143 Potassium 4.5 Chloride 110.4 H Carbon Dioxide 18 L D Anion Gap 19 BUN 15 Creatinine 0.8 Estimated GFR > 60 BUN/Creatinine Ratio 19 Glucose 93 Calcium 8.9 Total Bilirubin 2.60 H Direct Bilirubin 0.8 H Indirect Bilirubin 1.8 AST 48 H ALT 36 Alkaline Phosphatase 126 Ammonia Total Protein 7.7 Albumin 3.5 L Albumin/Globulin Ratio 0.8 04/24/19 04:17 WBC RBC Hgb Hct MCV MCH MCHC RDW Plt Count Lymph % (Auto) [place] % (Auto) Eos % (Auto) Baso % (Auto) Lymph # [place] # Eos # Baso # Seg Neutrophils % Seg Neutrophils # PT INR Sodium Potassium Chloride Carbon Dioxide Anion Gap BUN Creatinine Estimated GFR BUN/Creatinine Ratio Glucose Calcium Total Bilirubin Direct Bilirubin Indirect Bilirubin AST ALT Alkaline Phosphatase Ammonia 70.0 H Total Protein Albumin Albumin/Globulin Ratio <AMEENA SNOW - Last Filed: 04/24/19 23:18> Assessment and Plan Patient seen and examined. I have reviewed the advanced practitioner's evaluation, assessment, and plan, and agree with them. I note the following additions: patient would likely benefit from cholecystectomy but cannot currently due to high risk status due to liver disease, will need to see hepatobiliary surgery as outpatient Ammonia level normalized so hepatic encephalopathy highly unlikely to be an issue currently -if labs stable in am and tolerating PO, okay to be d/c per GI standpoint - Patient Problems (1) Acute hepatic encephalopathy Current Visit: Yes Status: Acute Objective - Constitutional Vitals: Temp Pulse Resp BP Pulse Ox 98.6 F 65 20 151/81 100 04/24/19 22:03 04/24/19 22:03 04/24/19 22:03 04/24/19 22:03 04/24/19 22:03 - Labs CBC & Chem 7: 04/24/19 04:17 04/24/19 04:17 Labs: Laboratory Results - last 24 hr 04/23/19 04/23/19 04/23/19 05:29 15:45 15:45 WBC RBC Hgb Hct MCV MCH MCHC RDW Plt Count Lymph % (Auto) [place] % (Auto) Eos % (Auto) Baso % (Auto) Lymph # [place] # Eos # Baso # Seg Neutrophils % Seg Neutrophils # PT INR Sodium Potassium Chloride Carbon Dioxide Anion Gap BUN Creatinine Estimated GFR BUN/Creatinine Ratio Glucose Calcium Total Bilirubin Direct Bilirubin Indirect Bilirubin AST ALT Alkaline Phosphatase Ammonia Total Protein Albumin Albumin/Globulin Ratio Urine Color Yellow Urine Turbidity Clear Urine pH 6.0 Ur Specific [place] 1.017 Urine Protein <15 mg/dl Urine Glucose (UA) Neg Urine Ketones Neg Urine Blood Sm Urine Nitrite Neg Urine Bilirubin Neg Urine Urobilinogen 4.0 Ur Leukocyte Esterase Neg Urine WBC (Auto) 4.0 Urine RBC (Auto) 20.0 U Epithel Cells (Auto) 1.0 Urine Bacteria (Auto) 1+ Granular Casts 6 Urine Mucus Few Urine Creatinine 109.2 H Urine Sodium 132 Urine Chloride 118.6 Urine Opiates Screen Presumptive negative Urine Methadone Screen Presumptive negative Ur Barbiturates Screen Presumptive negative Ur Phencyclidine Scrn Presumptive negative Ur Amphetamines Screen Presumptive positive U Benzodiazepines Scrn Presumptive positive Urine Cocaine Screen Presumptive negative U Marijuana (THC) Screen Presumptive negative Drugs of Abuse Note Disclamer 04/24/19 04/24/19 04/24/19 04:17 04:17 04:17 WBC 6.6 RBC 4.39 Hgb 14.3 Hct 42.4 MCV 97 MCH 33 H MCHC 34 RDW 16.2 H Plt Count 72 L Lymph % (Auto) 30.8 [place] % (Auto) 10.4 H Eos % (Auto) 0.9 Baso % (Auto) 0.8 Lymph # 2.0 [place] # 0.7 Eos # 0.1 Baso # 0.0 Seg Neutrophils % 57.1 Seg Neutrophils # 3.7 PT 16.3 H INR 1.35 H Sodium 143 Potassium 4.5 Chloride 110.4 H Carbon Dioxide 18 L D Anion Gap 19 BUN 15 Creatinine 0.8 Estimated GFR > 60 BUN/Creatinine Ratio 19 Glucose 93 Calcium 8.9 Total Bilirubin 2.60 H Direct Bilirubin 0.8 H Indirect Bilirubin 1.8 AST 48 H ALT 36 Alkaline Phosphatase 126 Ammonia Total Protein 7.7 Albumin 3.5 L Albumin/Globulin Ratio 0.8 Urine Color Urine Turbidity Urine pH Ur Specific [place] Urine Protein Urine Glucose (UA) Urine Ketones Urine Blood Urine Nitrite Urine Bilirubin Urine Urobilinogen Ur Leukocyte Esterase Urine WBC (Auto) Urine RBC (Auto) U Epithel Cells (Auto) Urine Bacteria (Auto) Granular Casts Urine Mucus Urine Creatinine Urine Sodium Urine Chloride Urine Opiates Screen Urine Methadone Screen Ur Barbiturates Screen Ur Phencyclidine Scrn Ur Amphetamines Screen U Benzodiazepines Scrn Urine Cocaine Screen U Marijuana (THC) Screen Drugs of Abuse Note 04/24/19 04:17 WBC RBC Hgb Hct MCV MCH MCHC RDW Plt Count Lymph % (Auto) [place] % (Auto) Eos % (Auto) Baso % (Auto) Lymph # [place] # Eos # Baso # Seg Neutrophils % Seg Neutrophils # PT INR Sodium Potassium Chloride Carbon Dioxide Anion Gap BUN Creatinine Estimated GFR BUN/Creatinine Ratio Glucose Calcium Total Bilirubin Direct Bilirubin Indirect Bilirubin AST ALT Alkaline Phosphatase Ammonia 70.0 H Total Protein Albumin Albumin/Globulin Ratio Urine Color Urine Turbidity Urine pH Ur Specific [place] Urine Protein Urine Glucose (UA) Urine Ketones Urine Blood Urine Nitrite Urine Bilirubin Urine Urobilinogen Ur Leukocyte Esterase Urine WBC (Auto) Urine RBC (Auto) U Epithel Cells (Auto) Urine Bacteria (Auto) Granular Casts Urine Mucus Urine Creatinine Urine Sodium Urine Chloride Urine Opiates Screen Urine Methadone Screen Ur Barbiturates Screen Ur Phencyclidine Scrn Ur Amphetamines Screen U Benzodiazepines Scrn Urine Cocaine Screen U Marijuana (THC) Screen Drugs of Abuse Note
[2019-04-24] MEDS: NADOLOL 20 MG TAB PO SCH (13:09)
[2019-04-24] MEDS: buPROPion SR 150 MG TAB PO SCH (13:13)
--- NOTE | 2019-04-24 13:53 | Progress Note ---
Assessment and Plan Assessment and plan: Patient is a 54F with hx of hepatitis, cirrhosis with varices, anemia and hepatic encephalopathy on lactulose and Rifaximin at home who presented to [facility] ED who states that she wasn't able to fill her rifaximin due to insurance issues. Brought in by daughter for increasing confusion. {Please ignore first UA. It was tap water. Patient was confused and filled the cup with tap water and nursing sent off. Specific gravity is 1 consistent with tap water, UA is to be repeated) -Hepatic encephalopathy, decompensated liver disease/portal hypertension: cont lactulose, restart rifaxamin, CM consult to help apply for financial assistance from Rx manufacture, Nadolol, -CAITIE due to vasomotor nephropathy: nephrology consulted, input noted -Diuretics on hold, was on Lasix and Aldactone -Cirrhosis: GI input noted, -Cholelithiasis history: No surgery here due to Cirrhosis per GI -DVT ppx- lovenox Disposition: continue inpatient care, unable to discharge today due to the confusion from Ativan, will stop Ativan, hopefully discharge tomorrow History Interval history: Patient was seen and examined. Follow-up on current diagnosis of AMS. No overnight events reported to me. Patient denies any chest pain, shortness breath, or severe headaches. Imaging, nursing note, chart, labs and old chart reviewed. Discussed with patient. Somnolent this am after being given a dose of Ativan Hospitalist Physical - Physical exam Narrative exam: Gen: WDWN, NAD, Awake, Alert, Orientated x 2 HEENT: NCAT, EOMI, PERRL, OP Clear Neck: supple, no adenopathy, no thyromegaly, no JVD CVS/Heart: RRR, normal S1S2, pulses present bilaterally Chest/Lungs: CTA B, Symmetrical chest expansion, good air entry bilaterally GI/Abdomen: soft, diffuse tenderness, good bowel sounds, no guarding or rebound /Bladder: no suprapubic tenderness, no CVA or paraspinal tenderness Extermity/Skin: no c/c/e, no obvious rash MSK: FROM x 4 Neuro: CN 2-12 grossly intact, no new focal deficits Psych: calm - Constitutional Vitals: Temp Pulse Resp BP Pulse Ox 98.2 F 96 H 20 135/98 100 04/24/19 13:12 04/24/19 13:12 04/24/19 13:12 04/24/19 13:12 04/24/19 13:12 General appearance: Present: no acute distress, well-nourished Results - Labs CBC & Chem 7: 04/24/19 04:17 04/24/19 04:17 Labs: Laboratory Last Values WBC 6.6 K/mm3 (4.5-11.0) 04/24/19 04:17 RBC 4.39 M/mm3 (3.65-5.03) 04/24/19 04:17 Hgb 14.3 gm/dl (10.1-14.3) 04/24/19 04:17 Hct 42.4 % (30.3-42.9) 04/24/19 04:17 MCV 97 fl (79-97) 04/24/19 04:17 MCH 33 pg (28-32) H 04/24/19 04:17 MCHC 34 % (30-34) 04/24/19 04:17 RDW 16.2 % (13.2-15.2) H 04/24/19 04:17 Plt Count 72 K/mm3 (140-440) L 04/24/19 04:17 Lymph % (Auto) 30.8 % (13.4-35.0) 04/24/19 04:17 [place] % (Auto) 10.4 % (0.0-7.3) H 04/24/19 04:17 Eos % (Auto) 0.9 % (0.0-4.3) 04/24/19 04:17 Baso % (Auto) 0.8 % (0.0-1.8) 04/24/19 04:17 Lymph # 2.0 K/mm3 (1.2-5.4) 04/24/19 04:17 [place] # 0.7 K/mm3 (0.0-0.8) 04/24/19 04:17 Eos # 0.1 K/mm3 (0.0-0.4) 04/24/19 04:17 Baso # 0.0 K/mm3 (0.0-0.1) 04/24/19 04:17 Seg Neutrophils % 57.1 % (40.0-70.0) 04/24/19 04:17 Seg Neutrophils # 3.7 K/mm3 (1.8-7.7) 04/24/19 04:17 PT 16.3 Sec. (12.2-14.9) H 04/24/19 04:17 INR 1.35 (0.87-1.13) H 04/24/19 04:17 Sodium 143 mmol/L (137-145) 04/24/19 04:17 Potassium 4.5 mmol/L (3.6-5.0) 04/24/19 04:17 Chloride 110.4 mmol/L (98-107) H 04/24/19 04:17 Carbon Dioxide 18 mmol/L (22-30) L D 04/24/19 04:17 19 mmol/L 04/24/19 04:17 BUN 15 mg/dL (7-17) 04/24/19 04:17 0.8 mg/dL (0.7-1.2) 04/24/19 04:17 Estimated GFR > 60 ml/min 04/24/19 04:17 19 % 04/24/19 04:17 Glucose 93 mg/dL (65-100) 04/24/19 04:17 Lactic Acid 1.60 mmol/L (0.7-2.0) 04/22/19 22:50 Calcium 8.9 mg/dL (8.4-10.2) 04/24/19 04:17 2.60 mg/dL (0.1-1.2) H 04/24/19 04:17 0.8 mg/dL (0-0.2) H 04/24/19 04:17 1.8 mg/dL 04/24/19 04:17 AST 48 units/L (5-40) H 04/24/19 04:17 ALT 36 units/L (7-56) 04/24/19 04:17 126 units/L (35-129) 04/24/19 04:17 70.0 umol/L (25-60) H 04/24/19 04:17 7.7 g/dL (6.3-8.2) 04/24/19 04:17 3.5 g/dL (3.9-5) L 04/24/19 04:17 0.8 % 04/24/19 04:17 Colorless (Yellow) 04/23/19 Unknown Clear (Clear) 04/23/19 Unknown 6.0 (5.0-7.0) 04/23/19 Unknown Ur Specific [place] 1.000 (1.003-1.030) L 04/23/19 Unknown <15 mg/dl mg/dL (Negative) 04/23/19 Unknown Neg mg/dL (Negative) 04/23/19 Unknown Neg mg/dL (Negative) 04/23/19 Unknown Neg (Negative) 04/23/19 Unknown Neg (Negative) 04/23/19 Unknown Neg (Negative) 04/23/19 Unknown < 2.0 mg/dL (<2.0) 04/23/19 Unknown Ur Leukocyte Esterase Neg (Negative) 04/23/19 Unknown < 1.0 /HPF (0.0-6.0) 04/23/19 Unknown < 1.0 /HPF (0.0-6.0) 04/23/19 Unknown U Epithel Cells (Auto) < 1.0 /HPF (0-13.0) 04/23/19 Unknown Presumptive negative 04/23/19 Unknown Presumptive negative 04/23/19 Unknown Ur Barbiturates Screen Presumptive negative 04/23/19 Unknown Ur Phencyclidine Scrn Presumptive negative 04/23/19 Unknown Ur Amphetamines Screen Presumptive negative 04/23/19 Unknown U Benzodiazepines Scrn Presumptive negative 04/23/19 Unknown Presumptive negative 04/23/19 Unknown U Marijuana (THC) Screen Presumptive negative 04/23/19 Unknown Disclamer 04/23/19 Unknown Plasma/Serum Alcohol < 0.01 % (0-0.07) 04/22/19 22:50 Active Medications - Current Medications Current Medications: Generic Name Dose Route Start Last Admin Trade Name Freq PRN Reason Stop Dose Admin Acetaminophen 650 mg 04/23/19 01:56 Tylenol PO Q4H PRN Pain MILD(1-3)/Fever >100.5/ROCHA Bupropion HCl 150 mg 04/23/19 10:00 04/24/19 13:13 Wellbutrin Sr PO 150 mg DAILY DONN Administration Cyclobenzaprine HCl 10 mg 04/23/19 01:56 04/23/19 22:14 Flexeril PO 10 mg TID PRN Administration Muscle Spasm Enoxaparin Sodium 40 mg 04/23/19 10:00 04/24/19 11:32 Lovenox SUB-Q 40 mg QDAY DONN Administration Lactulose 30 gm 04/23/19 08:00 04/24/19 08:49 Cephulac PO 30 gm TID DONN Administration Nadolol 20 mg 04/23/19 10:00 04/24/19 13:09 Corgard PO 20 mg QDAY DONN Administration Ondansetron HCl 4 mg 04/23/19 01:59 04/24/19 06:20 Zofran IV 4 mg Q8H PRN Administration Nausea And Vomiting Oxycodone/Acetaminophen 1 tab 04/23/19 01:56 04/24/19 00:05 Percocet 5/325 PO 1 tab BID PRN Administration Pain Pantoprazole Sodium 20 mg 04/23/19 10:00 04/24/19 11:30 Protonix PO 20 mg QDAY DONN Administration Promethazine HCl 25 mg 04/23/19 01:59 Phenergan IA Q6H PRN N/V IF NPO AND NO IV ACCESS Rifaximin 550 mg 04/23/19 10:00 04/24/19 11:29 Xifaxan PO 550 mg BID DONN Administration Sodium Chloride 10 ml 04/23/19 10:00 04/24/19 11:32 Sodium Chloride Flush Syringe 10 Ml IV 10 ml BID DONN Administration Sodium Chloride 10 ml 04/23/19 01:59 Sodium Chloride Flush Syringe 10 Ml IV PRN PRN LINE FLUSH
[2019-04-24 16:08] LABS: Chloride, Urine 118.6 mmolL (110-250); Creatinine,Urine 109.2 mg/dL (0.1-20.0)
[2019-04-24 16:14] LABS: Cannabinoid Screen,Urine PRESUMPTIVE NEGATIVE; Cocaine Screen,Urine PRESUMPTIVE NEGATIVE; Methadone Screen,Urine PRESUMPTIVE NEGATIVE
[2019-04-24 16:17] LABS: Bilirubin,Urine NEG (Negative); Blood,Urine SM (Negative); Color,Urine Yellow (Yellow); Mucus,Urine FEW /HPF; Protein,Urine <15 mg/dL mg/dL (Negative)
[2019-04-24 16:39] LABS: Amphetamine Screen,Urine PRESUMPTIVE POSITIVE; Benzodiazepines Screen,Urine PRESUMPTIVE POSITIVE
[2019-04-24 16:42] LABS: Bacteria,Urine 1+ /HPF (Negative); Granular Casts,Urine 6 /LPF
[2019-04-24 16:44] LABS: Opiate Screen,Urine PRESUMPTIVE NEGATIVE
--- NOTE | 2019-04-24 17:22 | Progress Note ---
Assessment and Plan - Patient Problems (1) Acute renal failure Current Visit: Yes Status: Acute Plan to address problem: Likely pre-renal in etiology. Will monitor closely. Improvement noted with IVF hydration and holding diuretics. (2) Acute hepatic encephalopathy Current Visit: Yes Status: Acute Plan to address problem: Mental status improved back to baseline. Will continue to monitor. (3) History of cirrhosis of liver Current Visit: Yes Status: Acute Plan to address problem: Follow up further recs from GI. Subjective Date of service: 04/24/19 Principal diagnosis: hepatic encephalopathy Interval history: Labs noted with improvement in renal function. Patient complaining of abdominal pain this afternoon. Objective - Vital Signs Vital signs: Vital Signs - 12hr 04/24/19 04/24/19 04/24/19 13:09 13:12 17:01 Temperature 98.2 F 98.5 F Pulse Rate 98 H 96 H 85 Respiratory 20 20 Rate Blood Pressure 135/98 135/98 147/84 O2 Sat by Pulse 100 100 Oximetry - General Appearance General appearance: well-developed, well-nourished, appears stated age EENT: ATNC, PERRL Neck: no JVD, no thyromegaly Respiratory: Present: Clear to Ascultation, Normal Exam Cardiology: regular, S1S2 Gastrointestinal: normal, normoactive bowel sounds Integumentary: no rash, warm and dry Neurologic: no focal deficit Musculoskeletal: other (-edema ) Psychiatric: agitated - Lab 04/24/19 04:17 04/24/19 04:17 Most recent lab results Calcium 8.9 mg/dL (8.4-10.2) 04/24/19 04:17 109.2 mg/dL (0.1-20.0) H 04/23/19 15:45 132 mmol/L 04/23/19 15:45 - Allied health notes Allied health notes reviewed: nursing Medications & Allergies - Medications Allergies/Adverse Reactions: Allergies Sulfa (Sulfonamide Antibiotics) Adverse Reaction (Verified 05/20/14 14:37) Rash Home Medications: Home Medications Medication Instructions Recorded Confirmed Last Taken Type Omeprazole 20 mg PO QDAY 02/19/18 03/15/19 Unknown History Ondansetron [Zofran Odt] 4 mg PO Q4H PRN 02/19/18 03/15/19 Unknown History Potassium Chloride [K-Dur] 10 meq PO QDAY #14 tablet 02/21/18 03/15/19 Unknown Rx Rifaximin [Xifaxan] 550 mg PO BID #60 tablet 02/21/18 03/15/19 03/04/19 08:00 Rx Lactulose 30 gm PO TID 03/15/19 03/15/19 Unknown History Spironolactone [Aldactone] 50 mg PO QDAY 03/15/19 03/15/19 03/14/19 08:00 History buPROPion HCl [Wellbutrin Sr] 150 mg PO DAILY 03/15/19 03/15/19 03/14/19 08:00 History oxyCODONE /ACETAMINOPHEN [Percocet 1 tab PO BID PRN 03/15/19 03/15/19 Unknown History 5/325 mg] Acetaminophen [Acetaminophen TAB] 650 mg PO Q4H PRN tablet 03/16/19 Unknown Rx Furosemide [Lasix TAB] 20 mg PO QDAY #30 tablet 03/16/19 Unknown Rx Lactulose [Cephulac] 30 gm PO TID #20 oral.liqd 03/16/19 Unknown Rx Magnesium Hydroxide [Milk of 30 ml PO Q4H PRN oral.liqd 03/16/19 Unknown Rx Magnesia] Nadolol [Corgard] 20 mg PO QDAY tablet 03/16/19 Unknown Rx Nadolol [Corgard] 20 mg PO QDAY #30 tablet 03/16/19 Unknown Rx Rifaximin [Xifaxan] 550 mg PO BID #20 tablet 03/16/19 Unknown Rx Sennosides Tab [Senokot] 8.6 mg PO Q12HR #30 tablet 03/16/19 Unknown Rx buPROPion [Wellbutrin] 150 mg PO DAILY tablet 03/16/19 Unknown Rx oxyCODONE /ACETAMINOPHEN [Percocet 1 tab PO BID PRN #60 tablet 03/16/19 Unknown Rx 5/325 mg] Cyclobenzaprine [Flexeril] 10 mg PO TID PRN #15 tablet 04/11/19 Unknown Rx Promethazine [Phenergan] 25 mg PO Q8HR PRN #15 tab 04/11/19 Unknown Rx Active Medications: Generic Name Dose Route Start Last Admin Trade Name Freq PRN Reason Stop Dose Admin Bupropion HCl 150 mg 04/23/19 10:00 04/24/19 13:13 Wellbutrin Sr PO 150 mg DAILY DONN Administration Cyclobenzaprine HCl 10 mg 04/23/19 01:56 04/23/19 22:14 Flexeril PO 10 mg TID PRN Administration Muscle Spasm Enoxaparin Sodium 40 mg 04/23/19 10:00 04/24/19 11:32 Lovenox SUB-Q 40 mg QDAY DONN Administration Lactulose 30 gm 04/23/19 08:00 04/24/19 15:26 Cephulac PO 30 gm TID DONN Administration Nadolol 20 mg 04/23/19 10:00 04/24/19 13:09 Corgard PO 20 mg QDAY DONN Administration Ondansetron HCl 4 mg 04/23/19 01:59 04/24/19 17:14 Zofran IV 4 mg Q8H PRN Administration Nausea And Vomiting Oxycodone/Acetaminophen 1 tab 04/23/19 01:56 04/24/19 15:26 Percocet 5/325 PO 1 tab BID PRN Administration Pain Pantoprazole Sodium 20 mg 04/23/19 10:00 04/24/19 11:30 Protonix PO 20 mg QDAY DONN Administration Promethazine HCl 25 mg 04/23/19 01:59 Phenergan CO Q6H PRN N/V IF NPO AND NO IV ACCESS Rifaximin 550 mg 04/23/19 10:00 04/24/19 11:29 Xifaxan PO 550 mg BID DONN Administration Sodium Chloride 10 ml 04/23/19 10:00 04/24/19 11:32 Sodium Chloride Flush Syringe 10 Ml IV 10 ml BID DONN Administration Sodium Chloride 10 ml 04/23/19 01:59 Sodium Chloride Flush Syringe 10 Ml IV PRN PRN LINE FLUSH
[2019-04-25] MEDS: oxyCODONE /ACETAMINOPHEN 5-325MG TAB PO PRN ×2 (00:46→11:19)
[2019-04-25 05:25] LABS: Hematocrit 37.9 % (30.3-42.9); Hemoglobin 12.7 gm/dl (10.1-14.3); Mean Corpuscular HGB Conc 34 % (30-34); Mean Corpuscular Volume 96 fl (79-97); Red Blood Count 3.93 M/mm3 (3.65-5.03); Red Cell Distribution Width 15.9 % (13.2-15.2)
[2019-04-25 05:33] LABS: Platelet Count 69 K/mm3 (140-440)
[2019-04-25 05:39] LABS: INR 1.52 (0.87-1.13)
[2019-04-25 05:51] LABS: Alanine Aminotransferase 30 units/L (7-56); BUN/Creatinine Ratio 29; Blood Urea Nitrogen 20 mg/dL (7-17); Calcium 8.2 mg/dL (8.4-10.2); Hemolysis Index 5
[2019-04-25 06:27] LABS: Basophils % (Manual) 0 % (0.0-1.8); Eosinophils % (Manual) 0 % (0.0-4.3); Total Cells Counted 100
[2019-04-25 06:28] LABS: Burr Cells Few; Ovalocytes Few
[2019-04-25 06:29] LABS: Platelet Estimate Consistent w Auto
[2019-04-25] MEDS: LACTULOSE 20 GM/30 ML ORAL LIQD PO SCH ×2 (09:12→15:08)
--- NOTE | 2019-04-25 09:33 | Progress Note ---
Assessment and Plan - Patient Problems (1) Acute renal failure Current Visit: Yes Status: Acute Plan to address problem: Likely pre-renal in etiology. Will monitor closely. Improvement noted with IVF hydration and holding diuretics. Renal function back to baseline at this time. Nephrology will sign off, please feel free to call back as needed. Recommend that she follows up with nephrology 2 weeks post discharge. (2) Acute hepatic encephalopathy Current Visit: Yes Status: Acute Plan to address problem: Mental status improved back to baseline. Will continue to monitor. (3) History of cirrhosis of liver Current Visit: Yes Status: Acute Plan to address problem: Follow up further recs from GI. Subjective Date of service: 04/25/19 Principal diagnosis: hepatic encephalopathy Interval history: No acute issues this am, she is eating breakfast, sitter at bedside. Abdominal pain has improved. Objective - Vital Signs Vital signs: Vital Signs - 12hr 04/24/19 04/25/19 04/25/19 22:03 04:38 04:57 Temperature 98.6 F 99.1 F Pulse Rate 65 96 H Respiratory 20 20 20 Rate Blood Pressure 115/65 Blood Pressure 151/81 115/65 [Right] O2 Sat by Pulse 100 96 Oximetry - General Appearance General appearance: well-nourished, appears stated age EENT: ATNC, PERRL Neck: no JVD, no thyromegaly Respiratory: Present: Clear to Ascultation, Normal Exam Cardiology: regular, S1S2 Gastrointestinal: normal, normoactive bowel sounds Integumentary: no rash, warm and dry Neurologic: no focal deficit, alert and oriented x3 Psychiatric: mood/affect appropriate, cooperative - Lab 04/25/19 05:08 04/25/19 05:08 Most recent lab results Calcium 8.2 mg/dL (8.4-10.2) L 04/25/19 05:08 109.2 mg/dL (0.1-20.0) H 04/23/19 15:45 132 mmol/L 04/23/19 15:45 - Allied health notes Allied health notes reviewed: nursing Medications & Allergies - Medications Allergies/Adverse Reactions: Allergies Sulfa (Sulfonamide Antibiotics) Adverse Reaction (Verified 05/20/14 14:37) Rash Home Medications: Home Medications Medication Instructions Recorded Confirmed Last Taken Type Omeprazole 20 mg PO QDAY 02/19/18 03/15/19 Unknown History Ondansetron [Zofran Odt] 4 mg PO Q4H PRN 02/19/18 03/15/19 Unknown History Potassium Chloride [K-Dur] 10 meq PO QDAY #14 tablet 02/21/18 03/15/19 Unknown Rx Rifaximin [Xifaxan] 550 mg PO BID #60 tablet 02/21/18 03/15/19 03/04/19 08:00 Rx Lactulose 30 gm PO TID 03/15/19 03/15/19 Unknown History Spironolactone [Aldactone] 50 mg PO QDAY 03/15/19 03/15/19 03/14/19 08:00 History buPROPion HCl [Wellbutrin Sr] 150 mg PO DAILY 03/15/19 03/15/19 03/14/19 08:00 History oxyCODONE /ACETAMINOPHEN [Percocet 1 tab PO BID PRN 03/15/19 03/15/19 Unknown History 5/325 mg] Acetaminophen [Acetaminophen TAB] 650 mg PO Q4H PRN tablet 03/16/19 Unknown Rx Furosemide [Lasix TAB] 20 mg PO QDAY #30 tablet 03/16/19 Unknown Rx Lactulose [Cephulac] 30 gm PO TID #20 oral.liqd 03/16/19 Unknown Rx Magnesium Hydroxide [Milk of 30 ml PO Q4H PRN oral.liqd 03/16/19 Unknown Rx Magnesia] Nadolol [Corgard] 20 mg PO QDAY tablet 03/16/19 Unknown Rx Nadolol [Corgard] 20 mg PO QDAY #30 tablet 03/16/19 Unknown Rx Rifaximin [Xifaxan] 550 mg PO BID #20 tablet 03/16/19 Unknown Rx Sennosides Tab [Senokot] 8.6 mg PO Q12HR #30 tablet 03/16/19 Unknown Rx buPROPion [Wellbutrin] 150 mg PO DAILY tablet 03/16/19 Unknown Rx oxyCODONE /ACETAMINOPHEN [Percocet 1 tab PO BID PRN #60 tablet 03/16/19 Unknown Rx 5/325 mg] Cyclobenzaprine [Flexeril] 10 mg PO TID PRN #15 tablet 04/11/19 Unknown Rx Promethazine [Phenergan] 25 mg PO Q8HR PRN #15 tab 04/11/19 Unknown Rx Active Medications: Generic Name Dose Route Start Last Admin Trade Name Jay PRN Reason Stop Dose Admin Bupropion HCl 150 mg 04/23/19 10:00 04/24/19 13:13 Wellbutrin Sr PO 150 mg DAILY DONN Administration Cyclobenzaprine HCl 10 mg 04/23/19 01:56 04/23/19 22:14 Flexeril PO 10 mg TID PRN Administration Muscle Spasm Lactulose 30 gm 04/23/19 08:00 04/25/19 09:12 Cephulac PO 30 gm TID DONN Administration Nadolol 20 mg 04/23/19 10:00 04/24/19 13:09 Corgard PO 20 mg QDAY DONN Administration Ondansetron HCl 4 mg 04/23/19 01:59 04/24/19 17:14 Zofran IV 4 mg Q8H PRN Administration Nausea And Vomiting Oxycodone/Acetaminophen 1 tab 04/23/19 01:56 04/25/19 00:46 Percocet 5/325 PO 1 tab BID PRN Administration Pain Pantoprazole Sodium 20 mg 04/23/19 10:00 04/24/19 11:30 Protonix PO 20 mg QDAY DONN Administration Promethazine HCl 25 mg 04/23/19 01:59 Phenergan RI Q6H PRN N/V IF NPO AND NO IV ACCESS Rifaximin 550 mg 04/23/19 10:00 04/24/19 21:13 Xifaxan PO 550 mg BID DONN Administration Sodium Chloride 10 ml 04/23/19 10:00 04/24/19 21:14 Sodium Chloride Flush Syringe 10 Ml IV 10 ml BID DONN Administration Sodium Chloride 10 ml 04/23/19 01:59 Sodium Chloride Flush Syringe 10 Ml IV PRN PRN LINE FLUSH
[2019-04-25] MEDS: buPROPion SR 150 MG TAB PO SCH (10:25)
[2019-04-25] MEDS: RIFAXIMIN 550 MG TAB PO SCH (10:25)
[2019-04-25] MEDS: NADOLOL 20 MG TAB PO SCH (10:26)
[2019-04-25] MEDS: PANTOPRAZOLE 20 MG TAB PO SCH (10:32)
--- NOTE | 2019-04-25 12:28 | Discharge Summary ---
Providers - Providers Date of Admission: 04/23/19 01:59 Date of discharge: 04/25/19 Attending physician: LENKA COOPER 04/23/19 01:59 Consult to Physician [CONS] Routine Comment: Consulting Provider: SHYAM GERMAN Physician Instructions: Reason For Exam: hepatic failure 04/23/19 02:06 Consult to Physician [CONS] Routine Comment: Consulting Provider: RENETTA TENORIO Physician Instructions: Reason For Exam: caitie Primary care physician: SHARITA ROBLEDO Hospitalization Condition: Stable Hospital course: Patient is a 54F with hx of hepatitis, cirrhosis with varices, anemia and hepatic encephalopathy on lactulose and Rifaximin at home who presented to [facility] ED who states that she wasn't able to fill her rifaximin due to insurance i ssues. Brought in by daughter for increasing confusion. {Please ignore first UA. It was tap water. Patient was confused and filled the cup with tap water and nursing sent off. Specific gravity is 1 consistent with tap water, UA repeated) -Acute Hepatic encephalopathy, decompensated liver disease/portal hypertension: cont lactulose, restart rifaxamin, CM consult to help apply for financial assistance from Rx [place], Nadolol, -CAITIE due to vasomotor nephropathy: nephrology consulted, input noted -Diuretics on hold, was on Lasix and Aldactone -Cirrhosis: GI input noted, -Cholelithiasis history: No surgery here due to Cirrhosis per GI -DVT ppx- lovenox Disposition: a/o x 3, will discharge, GI will need to do prior Authorization for Rifaxamin, in the meantime increase Lactulose to TID for 2-3 bm per day goal. I called Dr. Jovi Ching NP, their office is working on it. [place] egg tester AWARE 03/26/2019 1 02/24/2019 OXYCODONE-ACETAMINOPHEN 5-325 60.0 30 [place] ME[place] [phone] BRONWYN ([id number]) 0 15.0 MME Private Pay [place] 03/17/2019 1 03/17/2019 OXYCODONE-ACETAMINOPHEN 5-325 60.0 30 [place] WILEY Disposition: -01 TO HOME OR SELFCARE Time spent for discharge: 34 minutes Core Measure Documentation - Palliative Care Palliative Care/ Comfort Measures: Not Applicable - Core Measures Any of the following diagnoses?: none - VTE Discharge Requirements Deep Vein Thrombosis/Pulmonary Embolism Present on Admission: No Has pt received <5 days of overlap therapy or INR<2.0: No Anticoagulant overlap therapy prescribed at discharge: No Contraindication No Overlap Therapy order at DC: Not Indicated Exam - Physical Exam Narrative exam: Gen: WDWN, NAD, Awake, Alert, Orientated x 3 HEENT: NCAT, EOMI, PERRL, OP Clear Neck: supple, no adenopathy, no thyromegaly, no JVD CVS/Heart: RRR, normal S1S2, pulses present bilaterally Chest/Lungs: CTA B, Symmetrical chest expansion, good air entry bilaterally GI/Abdomen: soft, diffuse tenderness, good bowel sounds, no guarding or rebound /Bladder: no suprapubic tenderness, no CVA or paraspinal tenderness Extermity/Skin: no c/c/e, no obvious rash MSK: FROM x 4 Neuro: CN 2-12 grossly intact, no new focal deficits Psych: calm - Constitutional Vitals: Temp Pulse Resp BP Pulse Ox 97.3 F L 77 22 112/67 97 04/25/19 12:05 04/25/19 12:05 04/25/19 12:05 04/25/19 12:05 04/25/19 12:05 Plan Activity: no driving until cleared by PCP, other (no strenous activity unless cleared by PCP) Diet: low salt Additional Instructions: 1) You need to have 2-3 BM a day while on Lactulose. Follow up with: SHARITA ROBLEDO MD [Primary Care Provider] - 7 Days SHYAM GERMAN MD [Staff Physician] - 7 Days Prescriptions: oxyCODONE /ACETAMINOPHEN [Percocet 5/325] 1 tab PO Q4HR PRN #20 tab PRN Reason: Pain , Severe (7-10)
[2019-04-25 16:24] VITALS: BP 119/82
== END 2019-04-25 17:45 | disposition home or self-care (01) | DRG 441 ==
LOC: ED 21:48 → 3A 04-23 01:59
PROVIDERS: ADMIT Internal Medicine; ATTEND Internal Medicine
DX: K72.90 Hepatic failure, unspecified without coma (principal); N17.0 Acute kidney failure with tubular necrosis; K76.6 Portal hypertension; K70.30 Alcoholic cirrhosis of liver without ascites; K80.20 Calculus of gallbladder without cholecystitis without obstruction; Z88.2 Allergy status to sulfonamides; Z79.899 Other long term (current) drug therapy; Z82.49 Family history of ischemic heart disease and other diseases of the circulatory system; Z87.891 Personal history of nicotine dependence
CPT/HCPCS: 36415; 70450; 76770; 80048; 80053; 80076; 80307; 80320; 81001; 82140; 82436; 82570; 84300; 85007; 85025; 85610; 96374; 96375; G0378; G0480; J1650; J2060; J2405; J7030

== ENCOUNTER 2019-07-14 11:50 | Emergency (ER) | payer MEDICAID ==
[2019-07-14 13:38] VITALS: BP 125/78
--- NOTE | 2019-07-14 13:43 | Event Note ---
ED Screening Note Date of service: 07/14/19 Time: 13:39 ED Screening Note: 54 y o female presents to Ed cc of pain, swelling and pus drainage to her left hip states wents to dr carroll last week but wound is worse and swelling worse no antibiotics This initial assessment/diagnostic orders/clinical plan/treatment(s) is/are subject to change based on patients health status, clinical progression and re- assessment by fellow clinical providers in the ED. Further treatment and workup at subsequent clinical providers discretion. Patient/guardian urged not to elope from the ED as their condition may be serious if not clinically assessed and managed. Initial orders include: acc eval I&D?? clindamyscin
== END 2019-07-14 17:30 | disposition left against medical advice (07) ==
LOC: ED 11:50
DX: M25.552 Pain in left hip (principal); Z53.21 Procedure and treatment not carried out due to patient leaving prior to being seen by health care provider

== ENCOUNTER 2019-08-16 20:21 | Emergency (ER) | payer MEDICAID ==
--- NOTE | 2019-08-16 20:51 | Emergency Department Report ---
ED Abdominal Pain HPI - General Chief Complaint: Abdominal Pain Stated Complaint: ABD PAIN Time Seen by Provider: 08/16/19 20:37 Source: patient, EMS Mode of arrival: Stretcher Limitations: No Limitations - History of Present Illness Initial Comments: 54-year-old female with history of past alcohol abuse, liver cirrhosis, gallstones, presents to ED with abdominal pain. Patient reports onset of abdominal pain around 3 PM this afternoon. She states pain is located in the mid abdomen and radiating downward. She reports associated nausea and vomiting. Patient reports she had loose stools this morning. Patient currently takes lactulose for prevention of hepatic encephalopathy, although patient states she has been feeling slightly confused today. MD Complaint: abdominal pain -: This afternoon Location: periumbilical Radiation: suprapubic Severity: moderate Quality: sharp Consistency: constant Improves With: nothing Worsens With: nothing Associated Symptoms: nausea, vomiting, diarrhea. denies: dysuria - Related Data Home Medications Medication Instructions Recorded Confirmed Last Taken Omeprazole 20 mg PO QDAY 02/19/18 03/15/19 Unknown Ondansetron [Zofran Odt] 4 mg PO Q4H PRN 02/19/18 03/15/19 Unknown Lactulose 30 gm PO TID 03/15/19 03/15/19 Unknown Spironolactone [Aldactone] 50 mg PO QDAY 03/15/19 03/15/19 03/14/19 08:00 buPROPion HCl [Wellbutrin Sr] 150 mg PO DAILY 03/15/19 03/15/19 03/14/19 08:00 oxyCODONE /ACETAMINOPHEN [Percocet 1 tab PO BID PRN 03/15/19 03/15/19 Unknown 5/325 mg] Previous Rx's Medication Instructions Recorded Last Taken Type Potassium Chloride [K-Dur] 10 meq PO QDAY #14 tablet 02/21/18 Unknown Rx Rifaximin [Xifaxan] 550 mg PO BID #60 tablet 02/21/18 03/04/19 08:00 Rx Acetaminophen [Acetaminophen TAB] 650 mg PO Q4H PRN tablet 03/16/19 Unknown Rx Furosemide [Lasix TAB] 20 mg PO QDAY #30 tablet 03/16/19 Unknown Rx Lactulose [Cephulac] 30 gm PO TID #20 oral.liqd 03/16/19 Unknown Rx Magnesium Hydroxide [Milk of 30 ml PO Q4H PRN oral.liqd 03/16/19 Unknown Rx Magnesia] Nadolol [Corgard] 20 mg PO QDAY tablet 03/16/19 Unknown Rx Nadolol [Corgard] 20 mg PO QDAY #30 tablet 03/16/19 Unknown Rx Rifaximin [Xifaxan] 550 mg PO BID #20 tablet 03/16/19 Unknown Rx Sennosides Tab [Senokot] 8.6 mg PO Q12HR #30 tablet 03/16/19 Unknown Rx buPROPion [Wellbutrin] 150 mg PO DAILY tablet 03/16/19 Unknown Rx oxyCODONE /ACETAMINOPHEN [Percocet 1 tab PO BID PRN #60 tablet 03/16/19 Unknown Rx 5/325 mg] Cyclobenzaprine [Flexeril 10 MG 10 mg PO TID PRN #15 tablet 04/11/19 Unknown Rx TAB] Promethazine [Phenergan] 25 mg PO Q8HR PRN #15 tab 04/11/19 Unknown Rx oxyCODONE /ACETAMINOPHEN [Percocet 1 tab PO Q4HR PRN #20 tab 04/25/19 Unknown Rx 5/325] Allergies Allergy/AdvReac Type Severity Reaction Status Date / Time Sulfa (Sulfonamide AdvReac Rash Verified 07/14/19 13:38 Antibiotics) ED Review of Systems ROS: Stated complaint: ABD PAIN Other details as noted in HPI Comment: All other systems reviewed and negative Constitutional: denies: chills, fever Gastrointestinal: abdominal pain, nausea, vomiting, diarrhea ED Past Medical Hx - Past Medical History Hx Hypertension: Yes Hx Heart Attack/AMI: No Hx Congestive Heart Failure: No Hx Diabetes: No Hx Liver Disease: Yes Hx Psychiatric Treatment: Yes (DEPRESSION, ETOH abuse) Hx Asthma: No Hx COPD: No Additional medical history: GI bleeding, cirrosis, ulcer - Surgical History Additional Surgical History: Bladder tacted - Social History Smoking Status: Never Smoker Substance Use Type: Prescribed - Medications Home Medications: Home Medications Medication Instructions Recorded Confirmed Last Taken Type Omeprazole 20 mg PO QDAY 02/19/18 03/15/19 Unknown History Ondansetron [Zofran Odt] 4 mg PO Q4H PRN 02/19/18 03/15/19 Unknown History Potassium Chloride [K-Dur] 10 meq PO QDAY #14 tablet 02/21/18 03/15/19 Unknown Rx Rifaximin [Xifaxan] 550 mg PO BID #60 tablet 02/21/18 03/15/19 03/04/19 08:00 Rx Lactulose 30 gm PO TID 03/15/19 03/15/19 Unknown History Spironolactone [Aldactone] 50 mg PO QDAY 03/15/19 03/15/19 03/14/19 08:00 History buPROPion HCl [Wellbutrin Sr] 150 mg PO DAILY 03/15/19 03/15/19 03/14/19 08:00 History oxyCODONE /ACETAMINOPHEN [Percocet 1 tab PO BID PRN 03/15/19 03/15/19 Unknown History 5/325 mg] Acetaminophen [Acetaminophen TAB] 650 mg PO Q4H PRN tablet 03/16/19 Unknown Rx Furosemide [Lasix TAB] 20 mg PO QDAY #30 tablet 03/16/19 Unknown Rx Lactulose [Cephulac] 30 gm PO TID #20 oral.liqd 03/16/19 Unknown Rx Magnesium Hydroxide [Milk of 30 ml PO Q4H PRN oral.liqd 03/16/19 Unknown Rx Magnesia] Nadolol [Corgard] 20 mg PO QDAY tablet 03/16/19 Unknown Rx Nadolol [Corgard] 20 mg PO QDAY #30 tablet 03/16/19 Unknown Rx Rifaximin [Xifaxan] 550 mg PO BID #20 tablet 03/16/19 Unknown Rx Sennosides Tab [Senokot] 8.6 mg PO Q12HR #30 tablet 03/16/19 Unknown Rx buPROPion [Wellbutrin] 150 mg PO DAILY tablet 03/16/19 Unknown Rx oxyCODONE /ACETAMINOPHEN [Percocet 1 tab PO BID PRN #60 tablet 03/16/19 Unknown Rx 5/325 mg] Cyclobenzaprine [Flexeril 10 MG 10 mg PO TID PRN #15 tablet 04/11/19 Unknown Rx TAB] Promethazine [Phenergan] 25 mg PO Q8HR PRN #15 tab 04/11/19 Unknown Rx oxyCODONE /ACETAMINOPHEN [Percocet 1 tab PO Q4HR PRN #20 tab 04/25/19 Unknown Rx 5/325] ED Physical Exam - General Limitations: No Limitations General appearance: alert, in no apparent distress - Head Head exam: Present: atraumatic, normocephalic - Eye Eye exam: Present: normal appearance - ENT ENT exam: Present: mucous membranes moist - Neck Neck exam: Present: normal inspection - Respiratory Respiratory exam: Present: normal lung sounds bilaterally. Absent: respiratory distress - Cardiovascular Cardiovascular Exam: Present: normal rhythm, bradycardia - GI/Abdominal GI/Abdominal exam: Present: soft. Absent: distended, tenderness - Extremities Exam Extremities exam: Present: normal inspection - Neurological Exam Neurological exam: Present: alert, oriented X3 - Psychiatric Psychiatric exam: Present: normal affect, normal mood - Skin Skin exam: Present: warm, dry, intact, normal color ED Course Vital Signs 08/16/19 20:36 Temperature 98.3 F Pulse Rate 52 L Respiratory 18 Rate Blood Pressure 140/69 O2 Sat by Pulse 100 Oximetry ED Medical Decision Making - Lab Data Result diagrams: 08/16/19 21:10 08/16/19 22:24 - Medical Decision Making Pt presents to ED reports abd pain, N/V/D. Abdomen soft, nontender. No emesis here in ED. Pt also reported that she was concerned her ammonia may be elevated b/c she has been feeling somewhat confused today. Pt is lucid, A&O x 3, requesting oxycodone because she states she normally takes it twice a day and missed her nightly dose. Pt reports she has been compliant with her lactulaose. Ammonia level is normal. Vitals normal, pt afebrile. Remainder of labs unrem arkable, except for mild elevation of potassium of 5.3. Final Touch Up Painter had to draw blood 3 separate times, there is likely some hemolysis present. Renal function is normal. Will discharge home at this time. Critical care attestation.: If time is entered above; I have spent that time in minutes in the direct care of this critically ill patient, excluding procedure time. ED Disposition Clinical Impression: Abdominal pain Disposition: - TO HOME OR SELFCARE Is pt being admited?: No Condition: Stable Instructions: Abdominal Pain (ED) Referrals: LISA PRESTON MD [Primary Care Provider] - 3-5 Days JORDAN MERINO MD [Staff Physician] - 3-5 Days Time of Disposition: 23:07
[2019-08-16 21:30] LABS: Basophils % (Auto) 0.7 % (0.0-1.8); Eosinophils # (Auto) 0.1 K/mm3 (0.0-0.4); Eosinophils % (Auto) 2.9 % (0.0-4.3); Hemoglobin 13.6 gm/dl (10.1-14.3); Lymphocytes # (Auto) 2.1 K/mm3 (1.2-5.4); Mean Corpuscular HGB Conc 34 % (30-34); Mean Corpuscular Volume 91 fl (79-97); Monocytes # (Auto) 0.7 K/mm3 (0.0-0.8); Monocytes % (Auto) 13.4 % (0.0-7.3); Red Blood Count 4.38 M/mm3 (3.65-5.03); Red Cell Distribution Width 16.8 % (13.2-15.2)
[2019-08-16 21:32] LABS: Platelet Count 61 K/mm3 (140-440)
[2019-08-16 21:34] LABS: Bilirubin,Urine NEG (Negative); Blood,Urine NEG (Negative); Color,Urine Yellow (Yellow); Mucus,Urine 1+ /HPF; Protein,Urine <15 mg/dL mg/dL (Negative)
[2019-08-16 22:59] LABS: Alanine Aminotransferase 40 units/L (7-56); Albumin 2.8 g/dL (3.9-5); BUN/Creatinine Ratio 23; Bilirubin,Direct 0.6 mg/dL (0-0.2); Blood Urea Nitrogen 16 mg/dL (7-17); Hemolysis Index 6
[2019-08-16] MEDS ORDERED: oxyCODONE 5 MG TAB PO ONE (23:07)
[2019-08-16 23:12] VITALS: BP 125/63
== END 2019-08-16 23:32 | disposition home or self-care (01) ==
LOC: ED 20:21
DX: R10.33 Periumbilical pain (principal); R11.2 Nausea with vomiting, unspecified; R19.7 Diarrhea, unspecified; I10 Essential (primary) hypertension; F32.9 Major depressive disorder, single episode, unspecified; Z79.899 Other long term (current) drug therapy; Z88.2 Allergy status to sulfonamides
CPT/HCPCS: 36415; 80048; 80076; 81001; 82140; 85025

== ENCOUNTER 2020-12-18 09:12 | Emergency (ER) | payer MEDICAID ==
[2020-12-18] MEDS ORDERED: ONDANSETRON 4 MG/2 ML INJ IV ONE ×2 (10:00→18:01)
--- NOTE | 2020-12-18 10:04 | Event Note ---
ED Screening Note Date of service: 12/18/20 Time: 09:58 ED Screening Note: This initial assessment/diagnostic orders/clinical plan/treatment(s) is/are subject to change based on patients health status, clinical progression and re- assessment by fellow clinical providers in the ED. Further treatment and workup at subsequent clinical providers discretion. Patient/guardian urged not to elope from the ED as their condition may be serious if not clinically assessed and managed. Initial orders include: 55-year-old female with past medical history of cirrhosis of the liver and gallstones gallstones. She states that last night she started with right upper quadrant abdominal pain nausea and vomiting and not feeling like her usual self. She denies fever no chest pain no shortness of breath.
[2020-12-18 10:43] LABS: Hematocrit 38.1 % (30.3-42.9); Hemoglobin 12.9 gm/dl (10.1-14.3); Mean Corpuscular HGB Conc 34 % (30-34); Mean Corpuscular Volume 95 fl (79-97); Red Blood Count 4.01 M/mm3 (3.65-5.03); Red Cell Distribution Width 16.6 % (13.2-15.2)
[2020-12-18 10:46] LABS: Platelet Count 75 K/mm3 (140-440)
[2020-12-18 10:56] LABS: INR 1.41 (0.87-1.13)
[2020-12-18 10:57] LABS: Partial Thromboplastin Time 31.8 Sec. (24.2-36.6)
[2020-12-18 11:00] LABS: Alanine Aminotransferase 35 units/L (7-56); Albumin 3.1 g/dL (3.9-5); BUN/Creatinine Ratio 30; Blood Urea Nitrogen 21 mg/dL (7-17); Calcium 8.6 mg/dL (8.4-10.2); Hemolysis Index 12
[2020-12-18] MEDS ORDERED: oxyCODONE 5 MG TAB PO ONE (14:34)
--- NOTE | 2020-12-18 14:42 | Emergency Department Report ---
- General Chief complaint: Nausea/Vomiting/Diarrhea Stated complaint: N/V Time Seen by Provider: 12/18/20 14:24 Source: patient, EMS Mode of arrival: Wheelchair Limitations: No Limitations - History of Present Illness Initial comments: Chief complaint: Vomiting general weakness, "I wonder if my ammonia is up." HPI: This is a 55-year-old female with history of hepatitis, cirrhosis, esophageal varices, anemia, hepatic encephalopathy, cholelithiasis who presents with vomiting generalized weakness. She felt as if her speech was slurred for movement. She is concerned for elevated ammonia level. She was in her normal state of health last night. She had dinner at a family friend's home. She think she may have eaten too much. She rarely eats red meat. She ate cornbread spaghetti and birthday cake. She has chronic right upper quadrant pain for which her PCP Dr. Robledo addresses with oxycodone 5 mg tablets twice a day. She denies gait imbalance, paralysis or paresthesias. Personal credit support specialist Dr. Rhodes. Just prior to , she had an appointment with [place] transplant specialist. Patient has been constipated. She is concerned that she is not having frequent stools while taking lactulose. Last drink of alcohol 4 years ago. Medications: Lactulose Xifaxan Lasix Spironolactone BuSpar NaDOLOL Oxycodone Complaint: generalized weakness -: Gradual, This morning Location: generalized Severity: moderate Consistency: constant Improves with: none Worsens with: none Associated Symptoms: nausea/vomiting - Related Data Home Medications Medication Instructions Recorded Confirmed Last Taken Omeprazole 20 mg PO QDAY 02/19/18 03/15/19 Unknown Ondansetron [Zofran Odt] 4 mg PO Q4H PRN 02/19/18 03/15/19 Unknown Lactulose 30 gm PO TID 03/15/19 03/15/19 Unknown Spironolactone [Aldactone] 50 mg PO QDAY 03/15/19 03/15/19 03/14/19 08:00 buPROPion HCl [Wellbutrin Sr] 150 mg PO DAILY 03/15/19 03/15/19 03/14/19 08:00 oxyCODONE /ACETAMINOPHEN [Percocet 1 tab PO BID PRN 03/15/19 03/15/19 Unknown 5/325 mg] Previous Rx's Medication Instructions Recorded Last Taken Type Potassium Chloride [K-Dur] 10 meq PO QDAY #14 tablet 02/21/18 Unknown Rx Rifaximin [Xifaxan] 550 mg PO BID #60 tablet 02/21/18 03/04/19 08:00 Rx Acetaminophen [Acetaminophen TAB] 650 mg PO Q4H PRN tablet 03/16/19 Unknown Rx Furosemide [Lasix TAB] 20 mg PO QDAY #30 tablet 03/16/19 Unknown Rx Lactulose [Cephulac] 30 gm PO TID #20 oral.liqd 03/16/19 Unknown Rx Magnesium Hydroxide [Milk of 30 ml PO Q4H PRN oral.liqd 03/16/19 Unknown Rx Magnesia] Rifaximin [Xifaxan] 550 mg PO BID #20 tablet 03/16/19 Unknown Rx Sennosides Tab [Senokot] 8.6 mg PO Q12HR #30 tablet 03/16/19 Unknown Rx buPROPion [Wellbutrin] 150 mg PO DAILY tablet 03/16/19 Unknown Rx nadoloL [Corgard] 20 mg PO QDAY tablet 03/16/19 Unknown Rx nadoloL [Corgard] 20 mg PO QDAY #30 tablet 03/16/19 Unknown Rx oxyCODONE /ACETAMINOPHEN [Percocet 1 tab PO BID PRN #60 tablet 03/16/19 Unknown Rx 5/325 mg] Cyclobenzaprine [Flexeril 10 MG 10 mg PO TID PRN #15 tablet 04/11/19 Unknown Rx TAB] Promethazine [Phenergan] 25 mg PO Q8HR PRN #15 tab 04/11/19 Unknown Rx oxyCODONE /ACETAMINOPHEN [Percocet 1 tab PO Q4HR PRN #20 tab 04/25/19 Unknown Rx 5/325] Ondansetron [Zofran Odt] 4 mg PO Q8HR PRN #10 tab.rapdis 12/18/20 Unknown Rx Allergies Allergy/AdvReac Type Severity Reaction Status Date / Time Sulfa (Sulfonamide AdvReac Rash Verified 07/14/19 13:38 Antibiotics) ED Review of Systems ROS: Stated complaint: N/V Other details as noted in HPI Comment: All other systems reviewed and negative Constitutional: malaise. denies: fever Respiratory: denies: cough, shortness of breath Cardiovascular: denies: chest pain Gastrointestinal: abdominal pain (Chronic right-sided abdominal pain attributed to gallstones), nausea, vomiting Neurological: other. denies: headache (Momentary slurred speech), weakness, numbness, paresthesias, confusion, abnormal gait, vertigo ED Past Medical Hx - Past Medical History Previous Medical History?: Yes Hx Hypertension: Yes Hx Heart Attack/AMI: No Hx Congestive Heart Failure: No Hx Diabetes: No Hx Liver Disease: Yes Hx Psychiatric Treatment: Yes (DEPRESSION, ETOH abuse) Hx Asthma: No Hx COPD: No Additional medical history: GI bleeding, cirrosis, ulcer, gastroparesis - Surgical History Past Surgical History?: Yes Additional Surgical History: Bladder tacted - Social History Smoking Status: Former Smoker Substance Use Type: Prescribed - Medications Home Medications: Home Medications Medication Instructions Recorded Confirmed Last Taken Type Omeprazole 20 mg PO QDAY 02/19/18 03/15/19 Unknown History Ondansetron [Zofran Odt] 4 mg PO Q4H PRN 02/19/18 03/15/19 Unknown History Potassium Chloride [K-Dur] 10 meq PO QDAY #14 tablet 02/21/18 03/15/19 Unknown Rx Rifaximin [Xifaxan] 550 mg PO BID #60 tablet 02/21/18 03/15/19 03/04/19 08:00 Rx Lactulose 30 gm PO TID 03/15/19 03/15/19 Unknown History Spironolactone [Aldactone] 50 mg PO QDAY 03/15/19 03/15/19 03/14/19 08:00 History buPROPion HCl [Wellbutrin Sr] 150 mg PO DAILY 03/15/19 03/15/19 03/14/19 08:00 History oxyCODONE /ACETAMINOPHEN [Percocet 1 tab PO BID PRN 03/15/19 03/15/19 Unknown History 5/325 mg] Acetaminophen [Acetaminophen TAB] 650 mg PO Q4H PRN tablet 03/16/19 Unknown Rx Furosemide [Lasix TAB] 20 mg PO QDAY #30 tablet 03/16/19 Unknown Rx Lactulose [Cephulac] 30 gm PO TID #20 oral.liqd 03/16/19 Unknown Rx Magnesium Hydroxide [Milk of 30 ml PO Q4H PRN oral.liqd 03/16/19 Unknown Rx Magnesia] Rifaximin [Xifaxan] 550 mg PO BID #20 tablet 03/16/19 Unknown Rx Sennosides Tab [Senokot] 8.6 mg PO Q12HR #30 tablet 03/16/19 Unknown Rx buPROPion [Wellbutrin] 150 mg PO DAILY tablet 03/16/19 Unknown Rx nadoloL [Corgard] 20 mg PO QDAY tablet 03/16/19 Unknown Rx nadoloL [Corgard] 20 mg PO QDAY #30 tablet 03/16/19 Unknown Rx oxyCODONE /ACETAMINOPHEN [Percocet 1 tab PO BID PRN #60 tablet 03/16/19 Unknown Rx 5/325 mg] Cyclobenzaprine [Flexeril 10 MG 10 mg PO TID PRN #15 tablet 04/11/19 Unknown Rx TAB] Promethazine [Phenergan] 25 mg PO Q8HR PRN #15 tab 04/11/19 Unknown Rx oxyCODONE /ACETAMINOPHEN [Percocet 1 tab PO Q4HR PRN #20 tab 04/25/19 Unknown Rx 5/325] Ondansetron [Zofran Odt] 4 mg PO Q8HR PRN #10 tab.rapdis 12/18/20 Unknown Rx ED Physical Exam - General Limitations: No Limitations General appearance: alert, in no apparent distress - Head Head exam: Present: atraumatic, normocephalic - Eye Eye exam: Present: normal appearance - ENT ENT exam: Present: mucous membranes moist - Neck Neck exam: Present: normal inspection, full ROM - Respiratory Respiratory exam: Present: normal lung sounds bilaterally. Absent: respiratory distress, wheezes, rales, rhonchi - Cardiovascular Cardiovascular Exam: Present: regular rate, normal rhythm, normal heart sounds. Absent: systolic murmur, diastolic murmur, rubs, gallop - GI/Abdominal GI/Abdominal exam: Present: soft, normal bowel sounds. Absent: distended, ten derness, guarding, rebound - Extremities Exam Extremities exam: Present: normal inspection - Neurological Exam Neurological exam: Present: alert, oriented X3 - Psychiatric Psychiatric exam: Present: normal affect, normal mood - Skin Skin exam: Present: warm, dry, intact, normal color. Absent: rash ED Course Vital Signs 12/18/20 12/18/20 12/18/20 09:27 15:19 15:30 Temperature 98.4 F Pulse Rate 60 80 Respiratory 20 16 22 Rate Blood Pressure 148/84 163/85 O2 Sat by Pulse 99 100 Oximetry 12/18/20 12/18/20 12/18/20 15:46 16:00 16:16 Temperature Pulse Rate 86 85 77 Respiratory 22 19 20 Rate Blood Pressure 163/85 163/93 163/93 O2 Sat by Pulse 100 100 100 Oximetry ED Medical Decision Making - Lab Data Result diagrams: 12/18/20 10:14 12/18/20 10:14 - Medical Decision Making Vomiting shortly after eating male with family and friends. Suspect food poisoning. Ammonia level within normal limits. CBC notable for leukopenia. INR elevation reflective of cirrhosis liver failure. No evidence of severe metabolic derangement. Patient received IV fluid therapy in emergency department. She is discharged home prescription for Zofran. Critical care attestation.: If time is entered above; I have spent that time in minutes in the direct care of this critically ill patient, excluding procedure time. ED Disposition Clinical Impression: Food poisoning, Dehydration, History of cirrhosis of liver, Cholelithiasis, Chronic abdominal pain Disposition: DC-01 TO HOME OR SELFCARE Is pt being admited?: No Does the pt Need Aspirin: No Condition: Stable Prescriptions: Ondansetron [Zofran Odt] 4 mg PO Q8HR PRN #10 tab.rapdis PRN Reason: Nausea Referrals: SHARITA ROBLEDO MD [Primary Care Provider] - 3-5 Days
[2020-12-18] MEDS ORDERED: SODIUM CHLORIDE 0.9% 1000 ML 1,000 ML IV ONE (14:43)
[2020-12-18] MEDS ORDERED: MORPHINE 4 MG/1 ML INJ IV ONE (14:43)
[2020-12-18] MEDS ORDERED: ONDANSETRON 4 MG/2 ML INJ ONE ×2 (14:50)
[2020-12-18 15:47] LABS: Bacteria,Urine 1+ /HPF (Negative); Bilirubin,Urine NEG (Negative); Blood,Urine MOD (Negative); Color,Urine Amber (Yellow); Mucus,Urine 3+ /HPF
[2020-12-18 18:13] VITALS: BP 164/99
== END 2020-12-18 19:08 | disposition home or self-care (01) ==
LOC: ED 09:12
DX: A05.9 Bacterial foodborne intoxication, unspecified (principal); E86.0 Dehydration; K80.20 Calculus of gallbladder without cholecystitis without obstruction; R10.11 Right upper quadrant pain; I10 Essential (primary) hypertension; F32.9 Major depressive disorder, single episode, unspecified; Z98.890 Other specified postprocedural states; Z87.891 Personal history of nicotine dependence; Z79.899 Other long term (current) drug therapy; Z88.2 Allergy status to sulfonamides
CPT/HCPCS: 36415; 80053; 81001; 82140; 83690; 85027; 85610; 85730; 96361; 96374; 96375; 96376; 99284; J2270; J2405; J7030